=== PATIENT | female | born 1960 | race Caucasian/White ===

== ENCOUNTER 2022-03-31 16:18 | Inpatient (IN) | payer MEDICARE, MEDICAID, SELFPAY ==
[2022-03-31] VITALS (18 sets, daily range): BP systolic 95–139; BP diastolic 71–93; PULSE 97–123; RESP 18–34; TEMP 36.6–36.8; O2SAT 87–100; BMI 44.7
--- NOTE | 2022-03-31 16:22 | ED_ITS ---
HPI - SOB/Dyspnea General: Chief Complaint: Shortness of Breath/Dyspnea Stated Complaint: SOB Time Seen by Provider: 03/31/22 16:22 History of Present Illness: HPI Narrative: Ms. Lancaster is a 61-year-old lady with history of atrial fibrillation and apparent history of heart failure presenting to the emergency department due to shortness of breath and respiratory symptoms. Patient reports a few week history of progressively worsening symptoms. She was previously seen at outside ER and diagnosed with heart failure started on Lasix and initially had mild i mprovement however symptoms have worsened over the past few days. Endorses worse shortness of breath on exertion and inability to lay flat due to shortness of breath. Nonproductive cough and generalized malaise. Patient did have improvement with nitroglycerin, albuterol, and CPAP by EMS however is currently off CPAP and has obvious dyspnea with talking. Onset (ago): week(s) Timing: progressively worsening Severity: severe Exacerbating factors: lying flat, exertion and talking Relieving factors: nothing Known history of: congestive heart failure Review of Systems General: Reports: 10 or more systems reviewed and unremarkable except in HPI and below PFSH ED PFSH: Medical History Atrial fibrillation Pulmonary HTN Surgical History Personal history of spine surgery Family History Denies family history of CAD (coronary artery disease) Social History Smoking and tobacco status: former smoker Physical Exam Const: COMMON NORMALS: alert GENERAL APPEARANCE: cooperative, well developed and ill appearing (Somewhat) HENMT: COMMON NORMALS: normocephalic and atraumatic HEAD & SCALP: normocephalic and atraumatic Eye: COMMON NORMALS: conjunctivae normal CONJUNCTIVA: Yes conjunctivae normal SCLERA: sclerae normal Neck/C-Spine: COMMON NORMALS: supple GENERAL: Yes trachea midline Resp: EFFORT & INSPECTION: Yes tachypneic and Yes labored AUSCULTATION: diminished lung sounds Cardio: RATE: tachycardic RHYTHM: abnormal rhythm irregularly irregular GI: COMMON NORMALS: Soft to palpation PALPATION: Yes Soft to palpation and No Tenderness to palpation present (GI) PERCUSSION: normal to percussion Extremity: GENERAL: Yes normal exam except as noted and Yes edema (3+ bilateral pitting) Neuro: COMMON NORMALS: moves all extremities SENSORIUM/ORIENTATION: Yes alert and No Orientation impaired Psych: COMMON NORMALS: mental status grossly normal and Normal thought process present THOUGHT PROCESS: Normal thought process present Course Vital Signs: Vital signs: Vital Signs Temperature 97.9 F 04/09/22 03:41 Pulse Rate 97 04/09/22 03:41 Respiratory Rate 22 H 04/09/22 03:41 Blood Pressure 99/71 04/09/22 03:41 Pulse Oximetry 95 04/09/22 03:41 Oxygen Delivery Me thod 04/09/22 03:41 Oxygen Flow Rate 3.5 04/09/22 03:41 Fraction of Inspir ed Oxygen 30 04/08/22 22:55 MDM - SOB/Dyspnea Medical Decision Making 61-year-old lady presenting with progressively worsening heart failure symptoms despite outpatient treatment. Patient has been incompletely evaluated for diagnosis at this time. Exam as above. Patient has marked dyspnea on exam after short exertion and is found to be in atrial fibrillation. EKG notable for atrial fibrillation with borderline ventricular response, no STEMI, axis is abnormal. Labs notable for no leukocytosis, normal hemoglobin and platelet count. Metabolic panel without significant electrolyte arrangement to explain symptoms, creatinine is mildly elevated. Negative range 2-hour delta troponin. BNP elevated. Negative viral studies. Chest x-ray with increased pulm vascular congestion, no lobar consolidation or pneumothorax. Patient treated with analgesia in the emergency department. Heart rate remains in the high 90s to 110s range and blood pressure is adequate. Given incompletely evaluated cardiac function which is said to be significantly reduced of somewhat unclear etiology I will allow for mild increase in heart rate at this time as the patient may be dependent on of her cardiac output. Given severity and progressive nature of symptoms despite outpatient therapy I believe that the patient requires inpatient evaluation. Most likely etiology of patient symptoms is heart failure with atrial fibrillation. The results of ED evaluation were discussed with the patient including plan for admission due to requirement for level of care not available if discharged to prevent significant worsening/deterioration. Patient agreeable with plan. Discussed with hospitalist service who was agreeable to admit patient. Medical Records I reviewed the patient's medical records. Lab Data I reviewed the patient's lab results. 04/08/22 04:18 04/08/22 04:18 Labs/Radiology: Radiology Impressions Chest X-Ray 04/06/22 21:17 IMPRESSION: Negative for focal acute pulmonary disease. Possible mild interstitial edema. Laboratory Results WBC 8.2 10^3/uL (4.0-10.0) 03/31/22 16:30 RBC 4.83 10^6/uL (4.1-5.3) 03/31/22 16:30 Hgb 13.8 g/dL (11.5-15.3) 03/31/22 16:30 Hct 44.8 % (37.0-47.0) 03/31/22 16:30 MCV 92.8 fl (81-99) 03/31/22 16:30 MCH 28.6 pg (28.0-34.0) 03/31/22 16: MCHC 30.8 g/dL (30.0-36.0) 03/31/22 16:30 RDW 15.4 % (12.1-15.1) H 03/31/22 16:30 Plt Count 368 10^3/cmm (130-400) 03/31/22 16:30 MPV 10.2 fL (7.4-10.4) 03/31/22 16:30 Neut % (Auto) 77.4 % 03/31/22 16:30 Lymph % (Auto) 13.4 % 03/31/22 16:30 [place] % (Auto) 6.0 % 03/31/22 16:30 Eos % (Auto) 1.7 % 03/31/22 16:30 Baso % (Auto) 0.9 % 03/31/22 16:30 Neut # (Auto) 6.34 10^3/uL (1.8-7.7) 03/31/22 16:30 Lymph # (Auto) 1.1 10^3/uL (0.8-4.8) 03/31/22 16:30 [place] # (Auto) 0.5 10^3/uL (0.2-0.9) 03/31/22 16:30 Eos # (Auto) 0.1 10^3/uL (0.0-0.8) 03/31/22 16:30 Baso # (Auto) 0.1 10^3/uL (0.0-0.1) 03/31/22 16:30 Nucleated RBC % (auto) 0 % 03/31/22 16:30 Nucleated RBCs # 0.0 /100WBC 03/31/22 16:30 D-Dimer 1.19 ug/mIFEU (0-0.59) H 03/31/22 16:30 Specimen Type Arterial 03/31/22 16:39 Sample Site Radial, left 03/31/22 16:39 ABG pH 7.44 (7.35-7.45) 03/31/22 16:39 ABG pCO2 35.3 mmHg (35-45) 03/31/22 16:39 ABG pO2 63.3 mmHg (80.0-100.0) L 03/31/22 16:39 ABG HCO3 24.1 mmol/L (22-26) 03/31/22 16:39 ABG O2 Saturation 92.4 03/31/22 16:39 ABG Base Excess 0.3 mmol/L (-2.0-2.0) 03/31/22 16:39 Luis Test Pos 03/31/22 16:39 A-a O2 Gradient 5.7 mmHg (5-10) 03/31/22 16:39 Hematocrit 41.6 % (37-47) 03/31/22 16:39 Hgb O2 Saturation 91.0 % (95-100) L 03/31/22 16:39 Carboxyhemoglobin 1.3 %THgb (0.4-20.1) 03/31/22 16:39 Methemoglobin 0.1 % (0.4-1.5) L 03/31/22 16:39 Total Hemoglobin 13.6 g/dL (12-16) 03/31/22 16:39 Sodium 143.0 mmol/L (131-143) 03/31/22 16:39 Potassium 3.7 mmol/L (3.5-5.0) 03/31/22 16:39 Glucose 115.0 mg/dL (70-115) 03/31/22 16:39 Ionized Calcium 1.2 mmol/L (1.1-1.4) 03/31/22 16:39 O2 Delivery Device Room air 03/31/22 16:39 FiO2 21.0 % 03/31/22 16:39 Casing Machine Operator ID Cak 03/31/22 16:39 Sodium 141 mmol/L (136-145) 03/31/22 16:30 Potassium 3.5 mmol/L (3.5-5.1) 03/31/22 16:30 Chloride 104 mmol/L (98-107) 03/31/22 16:30 Carbon Dioxide 24 mmol/L (22-29) 03/31/22 16:30 Anion Gap 16.5 (5-19) 03/31/22 16:30 BUN 29 mg/dL (8-23) H 03/31/22 16:30 Creatinine 1.1 mg/dL (0.5-0.9) H 03/31/22 16:30 GFR Calculation 50.2 mL/min (90-130) L 03/31/22 16:30 Glucose 107 mg/dL (65-115) 03/31/22 16:30 Calculated Osmolality 298 mOsm/kg (285-295) H 03/31/22 16:30 Calcium 9.0 mg/dL (8.5-10.5) 03/31/22 16:30 Total Bilirubin 0.9 mg/dL (0.15-1.2) 03/31/22 16:30 AST 11 U/L (0-32) 03/31/22 16:30 ALT 18 U/L (0-33) 03/31/22 16:30 Alkaline Phosphatase 116 U/L (35-105) H 03/31/22 16:30 Troponin T Baseline 30 ng/L (0-10) H 03/31/22 16:30 C-Reactive Protein 33.0 mg/L (0.0-4.9) H 03/31/22 16:30 NT-Pro-B Natriuret Pep 7606 pg/mL (0-125) H 03/31/22 16:30 Total Protein 6.8 g/dL (6.6-8.7) 03/31/22 16:30 Albumin 3.7 g/dL (3.5-5.2) 03/31/22 16:30 Globulin 3.1 g/dL (1.3-4.6) 03/31/22 16:30 Vitamin B12 866 pg/mL (232-1245) 03/31/22 16:30 Procalcitonin 0.10 ng/mL (0-0.5) 03/31/22 16:30 Procalcitonin 0.11 ng/mL (0-0.5) 03/31/22 16:30 TSH 1.91 uIU/mL (0.27-4.20) 03/31/22 16:30 Coronavirus 229E (PCR) Not detected (NOT DETECT) 03/31/22 17:50 SARS-CoV-2 (PCR) Not detected (NOT DETECT) 03/31/22 17:50 Critical Care Time Critical Care Time: Critical Care Time: Yes Total Critical Care Time: 35 Attestation: Due to a high probability of clinically significant, possibly life threatening deterioration, the patient required my highest level of attention and preparedness to intervene emergently and I personally spent this critical care time directly and personally managing the patient. This critical care time included obtaining a history; examining the patient; pulse oximetry; ordering and review of laboratory and imaging studies; arranging urgent treatment with development of a management plan; evaluation of patient's response to treatment; frequent reassessment; and, discussions with other providers as applicable. It was exclusive of separately billable procedures. Primary system involved is cardiovascular Discharge Plan Discharge Patient Disposition: Admitted As Inpatient Admit Provider: Paul Tran Clinical Impression: Acute on chronic congestive heart failure, Atrial fibrillation with RVR, Hypoxemia Condition: Stable Coding Level of Care Code ED Director Of Hotel Operations for Varinderg Fwd Exam Comprehensive
--- NOTE | 2022-03-31 16:36 | XRR_ITS ---
PROCEDURE INFORMATION: Exam: XR Chest Exam date and time: 03/31/2022 4:49 PM Age: 61 years old Clinical indication: Shortness of breath; Additional info: SOB TECHNIQUE: Imaging protocol: Radiologic exam of the chest. Views: 1 view. COMPARISON: No relevant prior studies available. FINDINGS: Lungs: Mild interstitial pulmonary edema with superimposed alveolar edema versus atelectasis versus pneumonia in the right and left lower lobes. Pleural spaces: No pleural effusion. No pneumothorax. Heart/Mediastinum: Cardiac silhouette is markedly enlarged. Mediastinal contours are unremarkable. Vasculature: Vascular calcifications in the aorta. Bones/joints: Unremarkable for age. XR/XR chest 1V portable [id number] IMPRESSION: 1. Mild interstitial pulmonary edema with superimposed alveolar edema versus atelectasis versus pneumonia in the right and left lower lobes. Recommend clinical correlation. Recommend followup chest imaging to insure resolution of these findings. 2. Incidental/nonacute findings are listed in the report.
--- NOTE | 2022-03-31 16:37 | ECG_ITS ---
[facility] Test Date: 2022-03-31 Pat Name: Daina Lancaster Department: Room: Gender: Female Estate Conservator: : 1960 Requested By: Demarco Hsu Order Number: [id number] Kaleb MD: Kaci Toribio M.D. Measurements Intervals [place] Rate: 100 P: 0 TN: 0 QRS: 181 QRSD: 155 T: 78 QT: 403 QTc: 521 Interpretive Statements ATRIAL FIBRILLATION WITH RAPID VENTRICULAR RESPONSE INDETERMINATE AXIS INTRAVENTRICULAR CONDUCTION DELAY [130+ ms QRS DURATION] No previous ECG available for comparison Electronically Signed On 03-31-2022 20:07:10 DETENTION WORKER by Kaci Toribio M.D. [id number]
[2022-03-31 16:49] LABS: Basophils # 0.1 10^3/uL (0.0-0.1); Basophils % 0.9 %; Eosinophils # 0.1 10^3/uL (0.0-0.8); Eosinophils % 1.7 %; Hematocrit 44.8 % (37.0-47.0); Hemoglobin 13.8 g/dL (11.5-15.3); Lymphocytes # 1.1 10^3/uL (0.8-4.8); Lymphocytes % 13.4 %; Mean Corpuscular HGB Conc 30.8 g/dL (30.0-36.0); Mean Corpuscular Hemoglobin 28.6 pg (28.0-34.0); Mean Corpuscular Volume 92.8 fl (81-99); Mean Platelet Volume 10.2 fL (7.4-10.4); Monocytes # 0.5 10^3/uL (0.2-0.9); Neutrophils # 6.34 10^3/uL (1.8-7.7); Neutrophils % 77.4 %; Nucleated Red Blood Cells % 0 %; Platelet Count 368 10^3/cmm (130-400); Red Blood Count 4.83 10^6/uL (4.1-5.3); Red Cell Distribution Width 15.4 % (12.1-15.1); White Blood Count 8.2 10^3/uL (4.0-10.0)
[2022-03-31 16:50] LABS: ABG PCO2 35.3 mmHg (35-45); ABG PH Result 7.44 (7.35-7.45); Alveolar-Arterial Oxygen Gradi 5.7 mmHg (5-10); Arterial Blood Gas Hematocrit 41.6 % (37-47); Base Excess ABG 0.3 mmol/L (-2.0-2.0); Blood Gas Allen Test Pos; Blood Gas Operator Identificat CAK; Blood Gas Sample Site Radial, left; Blood Gas Sample Type Arterial; Carboxyhemoglobin 1.3 %THgb (0.4-20.1); HCO3 ABG 24.1 mmol/L (22-26); Ionized Calcium Level - ABG 1.2 mmol/L (1.1-1.4); Methemoglobin 0.1 % (0.4-1.5); Oxygen Device ROOM AIR; Oxygen Saturation ABG 92.4; PO2 ABG 63.3 mmHg (80.0-100.0); Potassium Level - ABG 3.7 mmol/L (3.5-5.0); Total Hemoglobin 13.6 g/dL (12-16)
[2022-03-31 17:07] LABS: Troponin(5th) Baseline 30 ng/L (0-10)
[2022-03-31 17:13] LABS: NT Pro B Type Natriuretic Pept 7606 pg/mL (0-125)
[2022-03-31 17:24] LABS: Alanine Aminotransferase 18 U/L (0-33); Albumin Level 3.7 g/dL (3.5-5.2); Alkaline Phosphatase 116 U/L (35-105); Anion Gap 16.5 (5-19); Aspartate Amino Transferase 11 U/L (0-32); Blood Urea Nitrogen 29 mg/dL (8-23); Carbon Dioxide 24 mmol/L (22-29); Chloride 104 mmol/L (98-107); Globulin 3.1 g/dL (1.3-4.6); Glomerular Filtration Rate 50.2 mL/min (90-130); Glucose 107 mg/dL (65-115); Osmolality Calculated 298 mOsm/kg (285-295); Potassium 3.5 mmol/L (3.5-5.1); Sodium 141 mmol/L (136-145); Total Bilirubin 0.9 mg/dL (0.15-1.2); Total Protein 6.8 g/dL (6.6-8.7)
--- NOTE | 2022-03-31 18:28 | P.HP_ITS ---
Providers/Chief Complaint Primary Care Provider: Mo Mike Chief Complaint: SOB History of Present Illness Daina Lancaster is a 61 year old female who presented to the hospital with chief complaint of worsening of shortness of breath with fluid overload and lower extremity edema. In the ER she has been diagnosed with A. fib RVR COPD exacerbation requiring BiPAP to decrease work of breathing. Patient is stating that since her spine surgery she has been noticing bloating and extremity edema. She was prescribed Lasix but she was never diagnosed with CHF in the past. She has not noticed any fever but endorsing chills and rm rgy and fatigue. She has not noticed any chest pain. Today she decided to come to the hospital because of worsening of leg swelling along with shortness of breath. She has been experiencing orthopnea and PND for last 2 to 3 days. In the ER she has only received morphine, BNP 7000, creatinine 1.1, chest x-ray showing signs of vascular congestion Review of Systems Const: Reports: body aches and fatigue; Denies: fever(s) Eyes: Denies: change in vision ENMT: Denies: throat pain Card: Reports: swelling of feet/ankles, dyspnea on exertion and orthopnea; Denies: chest pain Resp: Reports: dyspnea GI: Denies: abdominal pain or coffee ground emesis : Denies: dribbling Musc: Denies: neck pain Skin/Breast: Denies: rash Neuro: Denies: headache(s) Psych: Reports: anxiety Endo: Denies: polyuria Demetris/Lymph: Denies: easy bruising All/Imm: Denies: urticaria Medications/Allergies Home Medications Medication Instructions Recorded Confirmed Last Taken Type albuterol sulfate 90 mcg/actuation 2 puff inhalation Q6H PRN 03/31/22 03/31/22 Unknown History aerosol inhaler Shortness Of Breath apixaban 5 mg tablet (Eliquis) 5 mg PO BID 03/31/22 03/31/22 Unknown History carvedilol 3.125 mg tablet 3.125 mg PO BIDWM 03/31/22 03/31/22 Unknown History diltiazem HCl 180 mg capsule,24 180 mg PO BID 03/31/22 03/31/22 Unknown History hr,extended release furosemide 40 mg tablet 60 mg PO BID 03/31/22 03/31/22 Unknown History hydrocodone 10 mg-acetaminophen 1 tab PO BID PRN Pain 03/31/22 03/31/22 Unknown History 325 mg tablet losartan 25 mg tablet 25 mg PO DAILY 03/31/22 03/31/22 Unknown History naproxen 250 mg tablet 250 mg PO BID 03/31/22 03/31/22 Unknown History potassium chloride 20 mEq 20 meq PO DAILY 03/31/22 03/31/22 Unknown History tablet,extended release(part/cryst) spironolactone 25 mg tablet 25 mg PO DAILY 03/31/22 03/31/22 Unknown History Allergies Allergy/AdvReac Type Severity Reaction Status Date / Time amoxicillin [From Augmentin] Allergy ADR-Vomitin Verified 03/31/22 16:29 g clavulanic acid Allergy ADR-Vomitin Verified 03/31/22 16:29 [From Augmentin] g PFSH Acute PFSH: Medical History Atrial fibrillation Surgical History Personal history of spine surgery Family History (Updated 04/01/22 @ 13:43 by Paul Tran MD) Denies family history of CAD (coronary artery disease) Social History Smoking and tobacco status: former smoker Vitals/I&O/Wt Last Vital Signs Temp 98.2 F 03/31/22 16:19 Pulse 106 H 03/31/22 18:00 Resp 24 H 03/31/22 18:00 BP 96/71 03/31/22 17:30 Pulse Ox 100 03/31/22 18:00 O2 Del Method 03/31/22 16:46 FiO2 30 03/31/22 17:03 Weight last 48 hrs Weight 149.685 kg Physical Exam Narrative: Clinical signs of fluid overload Currently on BiPAP Saturating well Awake alert No active chest pain Clinical signs of fluid overload with 3+ edema of legs Abdomen soft, distended Awake and alert Known focal neuro exam Pleasant and cooperative Appears stated age No acute distress Data 03/31/22 16:30 03/31/22 16:30 A&P Assessment and plan (1) New onset of congestive heart failure: (2) Acute on chronic congestive heart failure: (3) Atrial fibrillation with RVR: (4) Hypoxemia: (5) Atrial fibrillation: Plan A. fib RVR Optimize AV morgan blocking agent Anticoagulate with Lovenox COPD exacerbation Currently on BiPAP to decrease work of breathing Diastolic CHF exacerbation causing worsening of shortness of breath Aggressive diuresis Clinical signs of fluid overload Check echo Full code Cardiac diet DVT prophylaxis on board Attestations Medical Necessity Statement*: Anticipating more than 2 midnights Time Spent in Patient Care: 40 Coding Level of Care Code Acute Tobacco Warehouse Agent for Andrew Everett Diagnoses New onset of congestive heart failure I50.9 Acute on chronic congestive heart failure I50.9 Atrial fibrillation with RVR I48.91 Hypoxemia R09.02 Atrial fibrillation I48.91
--- NOTE | 2022-03-31 18:39 | ECG_ITS ---
[facility] Test Date: 2022-03-31 Pat Name: Daina Lancaster Department: Room: Gender: Female Oceanographer Geological: : 1960 Requested By: Demarco Hsu Order Number: [id number] Kaleb MD: Kaci Toribio M.D. Measurements Intervals [place] Rate: 112 P: 0 FL: 0 QRS: 238 QRSD: 158 T: 67 QT: 380 QTc: 520 Interpretive Statements ATRIAL FIBRILLATION WITH RAPID VENTRICULAR RESPONSE RIGHT AXIS DEVIATION [QRS AXIS > 100] INTRAVENTRICULAR CONDUCTION DELAY [130+ ms QRS DURATION] Compared to ECG 03/31/2022 17:06:40 Right-axis deviation now present Indeterminate axis no longer present Electronically Signed On 03-31-2022 20:23:53 HYDRAULIC PLUMBER by Kaci Toribio M.D. [id number]
[2022-03-31] MEDS: morphine 4 mg/mL SDV 1 mL IVP (18:43)
[2022-03-31 19:26] LABS: Procalcitonin 0.11 ng/mL (0-0.5)
[2022-03-31 19:38] LABS: Adenovirus Not Detected (NOT DETECT); Chlamydia Pneumoniae Not Detected (NOT DETECT); Coronavirus 229E,HKU1,NL63,OC4 Not Detected (NOT DETECT); Human Metapneumovirus Not Detected (NOT DETECT); Human Rhinovirus/Enterovirus Not Detected (NOT DETECT); Influenza A Not Detected (NOT DETECT); Influenza A H1 Not Detected (NOT DETECT); Influenza A H1-2009 Not Detected (NOT DETECT); Influenza A H3 Not Detected (NOT DETECT); Influenza B Not Detected (NOT DETECT); Mycoplasma Pneumoniae Not Detected (NOT DETECT); Parainfluenza Virus Type 1 Not Detected (NOT DETECT); Parainfluenza Virus Type 2 Not Detected (NOT DETECT); Parainfluenza Virus Type 3 Not Detected (NOT DETECT); Parainfluenza Virus Type 4 Not Detected (NOT DETECT); Respiratory Syncytial Virus A Not Detected (NOT DETECT); Respiratory Syncytial Virus B Not Detected (NOT DETECT); SARS-COV-2 Not Detected (NOT DETECT)
[2022-03-31 20:06] LABS: D Dimer 1.19 ug/mIFEU (0-0.59)
[2022-03-31 20:09] LABS: Troponin 5 2HR 27.68 ng/L (0-10)
[2022-03-31 20:16] LABS: Troponin 5 2HR Delta -2.32 ABS# (0-10)
[2022-03-31 20:45] LABS: Thyroid Stimulating Hormone 1.91 uIU/mL (0.27-4.20); Vitamin B12 866 pg/mL (232-1245)
[2022-03-31] MEDS: amiodarone 200 mg Tablet 400 MG PO (21:03)
[2022-03-31] MEDS: FUROsemide 10 mg/mL SDV 10mL 60 MG IVP (21:05)
[2022-03-31 22:48] LABS: Troponin 5 6HR 32.53 ng/L (0-10)
[2022-03-31 22:53] LABS: Troponin 5 6HR Delta 2.53 ng/L (0-12)
[2022-04-01] VITALS (166 sets, daily range): BP systolic 113–119; BP diastolic 60–99; PULSE 83–143; RESP 7–38; TEMP 36.2–37.1; O2SAT 85–100
[2022-04-01] MEDS: morphine IR 15 mg Tablet PO ×3 (02:53→20:24)
[2022-04-01 04:34] LABS: Anion Gap 15.8 (5-19); Blood Urea Nitrogen 30 mg/dL (8-23); C Reactive Protein 28.2 mg/L (0.0-4.9); Calcium 9.5 mg/dL (8.5-10.5); Carbon Dioxide 22 mmol/L (22-29); Chloride 105 mmol/L (98-107); Glomerular Filtration Rate 45.4 mL/min (90-130); Glucose 121 mg/dL (65-115); Magnesium 2.1 mg/dL (1.7-2.3); Osmolality Calculated 295 mOsm/kg (285-295); Phosphorus 4.1 mg/dL (2.5-4.5); Potassium 3.8 mmol/L (3.5-5.1); Sodium 139 mmol/L (136-145)
--- NOTE | 2022-04-01 04:47 | PC.NURSE ---
weight as of 04-01-22 at 0447 is 353.9lbs.
[2022-04-01 05:13] LABS: Basophils # 0.1 10^3/uL (0.0-0.1); Basophils % 1.4 %; Eosinophils # 0.1 10^3/uL (0.0-0.8); Eosinophils % 1.9 %; Hematocrit 43.2 % (37.0-47.0); Lymphocytes # 1.2 10^3/uL (0.8-4.8); Lymphocytes % 17.2 %; Mean Corpuscular HGB Conc 30.1 g/dL (30.0-36.0); Mean Corpuscular Hemoglobin 28.3 pg (28.0-34.0); Mean Corpuscular Volume 93.9 fl (81-99); Mean Platelet Volume 10.3 fL (7.4-10.4); Monocytes # 0.5 10^3/uL (0.2-0.9); Monocytes % 7.2 %; Neutrophils % 71.9 %; Nucleated Red Blood Cells % 0 %; Platelet Count 358 10^3/cmm (130-400); Red Cell Distribution Width 15.8 % (12.1-15.1)
--- NOTE | 2022-04-01 06:00 | USCV_ITS ---
Daina Lancaster Age: 61 Gender: F : 1960 Exam Date: 04/01/2022 15:21 Ordering Phys: Paul Tran MD Technologist: Alli Monet [place] [facility] [place]: chf BP: 119 / 60 HR: 40 Rhythm: Sinus Technical Quality: Adequate MEASUREMENTS (Male / Female) Normal Values 2D ECHO LV Diastolic Diameter PLAX 4.7 cm 4.2 - 5.9 / 3.9 - 5.3 cm LV Systolic Diameter PLAX 4.3 cm IVS Diastolic Thickness 1.1 cm 0.6 - 1.0 / 0.6 - 0.9 cm IVS Systolic Thickness 1.6 cm LVPW Diastolic Thickness 1.2 cm 0.6 - 1.0 / 0.6 - 0.9 cm LVPW Systolic Thickness 1.4 cm LVOT Diameter 2.1 cm LV Ejection Fraction 2D Teich 16.7 % LV Ejection Fraction MOD 2C 43.3 % LV Ejection Fraction 2C AL 43.1 % LA Diameter 4.6 cm Aorta at Sinotubular Diameter 2.8 cm IVC Diameter 2.5 cm M-MODE Aortic Annulus Diameter 2.7 cm LA Ao Ratio MM 1.8 MV E Point Septal Separation 1.9 cm DOPPLER AV Peak Velocity 154.0 cm/s LVOT Peak Velocity 52.0 cm/s AV Area Cont Eq vti 1.5 cm squared AV Area Cont Eq pk 1.1 cm squared MV E' Velocity 9.0 cm/s TR Peak Velocity 188.0 cm/s TR Peak Gradient 14.1 mmHg Right Atrial Pressure 3.0 mmHg Pulmonary Artery Systolic Pressu 17.1 mmHg FINDINGS Left Ventricle Left ventricle is normal in size. Grossly LV systolic function appears to be moderate to severely reduced. Accurate assessment of regional wall motion abnormalities is not possible because of poor ultrasonic windows. Right Ventricle Grossly appears to be hypokinetic Right Atrium Normal in size Left Atrium Normal in size Mitral Valve Grossly normal. Mild mitral regurgitation. Aortic Valve Not well visualized. No significant stenosis regurgitation seen. Tricuspid Valve Not well-visualized. Pulmonic Valve Not well-visualized. Pericardium Not well-visualized. Aorta Normal in size IVC CONCLUSIONS Technically limited quality echocardiogram because of poor ultrasonic windows. Grossly LV systolic function appears to be moderate to severely reduced. Accurate assessment of regional wall motion abnormalities is not possible because of poor ultrasonic windows. Grossly RV appears to be hypokinetic Mild mitral regurgitation No comparison studies are available Jeremy Tello MD (Electronically Signed) Final Date: 01 April 2022 18:48 S
--- NOTE | 2022-04-01 07:40 | USCV_ITS ---
Tonny Daina Age: 61 Gender: F : 1960 Exam Date: 04/01/2022 11:22 Ordering Phys: Paul Tran MD Technologist: CT Exam Location: [facility] – [place] Indication: sob PROCEDURES: Bilaterally, the common femoral, superficial femoral, profunda femoral, popliteal, posterior tibial, greater saphenous veins, and the peroneal trunk were identified and interrogated in the standard fashion. These veins were found to be easily compressible with spontaneous blood flow. No evidence of insufficiency or thrombus noted. In addition, the posterior tibial and peroneal trunk were evaluated. FINDINGS: normal venous, large pt CONCLUSIONS No evidence of right lower extremity DVT. No evidence of left lower extremity DVT. Henrique Jackson MD (Electronically Signed) Final Date: 01 April 2022 16:06 S
[2022-04-01] MEDS: FUROsemide 10 mg/mL SDV 10mL 60 MG IVP ×2 (08:29→20:12)
[2022-04-01] MEDS: apixaban 5 mg Tablet PO ×2 (08:29→17:42)
[2022-04-01] MEDS: dilTIAZem ER (24HR) 180 mg Capsule PO ×2 (08:29→17:42)
[2022-04-01] MEDS: carvedilol 3.125 mg Tablet PO (08:37)
--- NOTE | 2022-04-01 11:47 | PC.CHAP ---
Pastoral Care Encounter/Spiritual Assessment Type of Contact [] Declined application technician visit [] Patient/Family/Request visit [] Outpatient visit [] Follow-up visit [] Physician referral [] Code/Alert [x] Routine visit [] Staff referral [] Actively dying [] Patient sleeping [] Family support [] [] Out of room [] Palliative care [] [] Receiving care in room [] Pre-surgical visit [] Trauma [] Long length of stay [] ICU visit [] Other: Relational/Emotional Strength [x] Patient feels connected with others/family/visitors/staff [] Distress [] Loneliness/isolation [] Abandonment Spirituality of Patient [x] Person of Niru [] Attends Denominational of their Niru [x] Believes in Prayer [x] Reads Bible or Baptism materials [] There are Spiritual issues to be addressed [place] Lineman Interventions [x] Prayer [x] Active listening [x] Non-anxious presence [x] Spiritual/emotional support [] Crisis/trauma care [] Spiritual counseling [] Bereavement support [] Provided bereavement packet [] Provided Bible/devotional materials [] Provided toy/stuffed animal, coloring book to patient or family member [] Provided Communion [] Anointing/[place] [] Salvation [x] Completed spiritual assessment [] Other: Impact on Illness or Injury [] Angry [] Fearful [] Anxious [] Often cries [] Exhaustion [] Unable to work [] Unable to attend pentecostalism [] Unable to walk/stand [] Unable to read [] Unable to drive [] Unable to eat/drink [] Unable to sleep [] Unable to be with family [] Patient intubated [] Other: Summary Time spent with patient 10 min
--- NOTE | 2022-04-01 13:45 | PM.PN ---
Subjective Subjective: Patient is stating that she snores a lot Feels groggy in the morning Currently doing well on 3 L nasal cannula Heart rate improved with initiation of home medications however Coreg has been increased Discontinue amiodarone Shortness of breath improved with use of BiPAP Vitals/I&O/Wt Last Vital Signs Temp 97.2 F L 04/01/22 12:00 Pulse 100 04/01/22 13:10 Resp 29 H 04/01/22 13:10 BP 119/60 04/01/22 13:10 Pulse Ox 94 04/01/22 13:10 O2 Del Method 03/31/22 19:52 FiO2 35 04/01/22 07:49 03/31/22 04/01/22 04/01/22 22:59 06:59 14:59 Intake Total 960 / 960 1260 / 2220 590 / 590 Output Total 700 / 700 600 / 1300 425 / 425 Balance 260 / 260 660 / 920 165 / 165 Weight last 48 hrs Weight 149.685 kg Physical Exam Narrative: Clinical signs of fluid overload still present Currently on nasal cannula Abdomen soft Awake and alert Nonfocal neuro exam Variable S1-S2 EOMI, PERRLA Nonfocal neuro exam Pleasant and cooperative Data 04/01/22 03:53 04/01/22 03:53 Micro: Microbiology 03/31/22 18:50 Blood Culture - Preliminary Blood SPECIMEN COLLECTED 03/31/22 18:46 Blood Culture - Preliminary Blood SPECIMEN COLLECTED A&P Assessment and plan (1) New onset of congestive heart failure: (2) Acute on chronic congestive heart failure: (3) Atrial fibrillation with RVR: (4) Hypoxemia: (5) Atrial fibrillation: Plan New onset CHF Continue IV Lasix Fluid restriction 1200 mL Follow-up with echo EF is unknown Likely etiology is undiagnosed deep apnea No active chest pain or signs of ACS A. fib RVR Increase the dose of Coreg to 12.5 mg twice a day Continue diltiazem home regimen Continue Eliquis Dyspnea on exertion related to CHF exacerbation Most likely she has undiagnosed sleep apnea endorsing headaches, grogginess in the morning and lack of energy, will give her outpatient sleep study referral To pulse ox telemetry overnight, ideally will do without oxygen Continue diuresis Still fluid overloaded Attestations Medical Necessity Statement*: Discharge once she is able to lay flat without any shortness of breath Time Spent in Patient Care: 30 Coding Level of Care Code Acute Development Administrator for Chg Fwd Diagnoses New onset of congestive heart failure I50.9 Acute on chronic congestive heart failure I50.9 Atrial fibrillation with RVR I48.91 Hypoxemia R09.02 Atrial fibrillation I48.91
[2022-04-01] MEDS: ipratropium-albuterol 3 mL Neb INHALATION ×2 (16:59→20:47)
[2022-04-01] MEDS: carvedilol 12.5 mg Tablet PO (17:42)
[2022-04-02] VITALS (19 sets, daily range): BP systolic 100–113; BP diastolic 74–95; PULSE 92–127; RESP 6–24; TEMP 35.8–36.8; O2SAT 92–98
[2022-04-02] MEDS: morphine IR 15 mg Tablet PO (02:30)
[2022-04-02 04:47] LABS: Blood Urea Nitrogen 35 mg/dL (8-23); Calcium 8.9 mg/dL (8.5-10.5); Carbon Dioxide 23 mmol/L (22-29); Chloride 104 mmol/L (98-107); Glomerular Filtration Rate 50.2 mL/min (90-130); Glucose 147 mg/dL (65-115); Osmolality Calculated 303 mOsm/kg (285-295); Sodium 141 mmol/L (136-145)
[2022-04-02] MEDS: ipratropium-albuterol 3 mL Neb INHALATION ×2 (08:09→20:15)
--- NOTE | 2022-04-02 08:27 | PM.CONSULT ---
Providers/Reason For Consult Consulting Physician/Specialty*: BROOKLYNN Toribio MD/cardiology Reason for Consult*: Patient with increasing shortness of breath/leg swelling/atrial fibrillation Requesting Physician: Dr. Tran Attending Physician: Paul Tran MD Primary Care Provider: Mo Mike History of Present Illness History of Present Illness Daina Lancaster is a 61 year old female, is admitted to hospital through the emergency room, where she presented with complaints of increasing shortness of breath and leg swelling. She was found to be in atrial fibrillation with rapid ventricular rate and also features of congestive heart failure. Her echocardiogram revealed a diminished LV ejection fraction. Cardiology consult is requested for further cardiac evaluation and recommendations. This patient is known to have chronic atrial fibrillation and is on oral anticoagulation. She also is known to have blood pressure. No history for diabetes or dyslipidemia. Has a questionable history of sleep apnea but never been treated. For the last few weeks, she been having increasing shortness of breath. The symptoms started acutely getting worse the last 3 to 4 days. She has no chest pain. No fever, chills or cough. No other associated symptoms. She has having some amount of orthopnea and PND. She had a low back surgery 20 years ago or so. Ever since, she been having bilateral leg numbness and some swelling. Her father had heart problems starting in his 50s. The details are not available. No other relevant family history. She used to smoke but quit 20 years ago. No alcohol abuse or any other substance abuse. Review of Systems Narrative: CONSTITUTIONAL: No fever or chills. Worsening shortness of breath as mentioned above EYES: No blurring of vision or other visual disturbances lately. ENT: No hoarseness of voice, auditory disturbances or sore throat. CARDIOVASCULAR: As mentioned above. RESPIRATORY: No significant cough. Questionable history of sleep apnea GASTROINTESTINAL: No hematemesis or melena. GENITOURINARY: No dysuria or hematuria. INTEGUMENTARY: No skin rashes or history of skin cancer. NEURO: No transient ischemic attacks or amaurosis. PSYCHIATRIC: No history of psychosis or major depression. HEMATOLOGIC: No bleeding disorders or significant anemia. ENDOCRINE: No history of polyuria or polydipsia. MUSCULOSKELETAL: No recent joint pain or swelling. ALLERGY/IMMUNOLOGY: As mentioned above. Medications/Allergies Home Medications Medication Instructions Recorded Confirmed Last Taken Type albuterol sulfate 90 mcg/actuation 2 puff inhalation Q6H PRN 03/31/22 03/31/22 Unknown History aerosol inhaler Shortness Of Breath apixaban 5 mg tablet (Eliquis) 5 mg PO BID 03/31/22 03/31/22 Unknown History carvedilol 3.125 mg tablet 3.125 mg PO BIDWM 03/31/22 03/31/22 Unknown History diltiazem HCl 180 mg capsule,24 180 mg PO BID 03/31/22 03/31/22 Unknown History hr,extended release furosemide 40 mg tablet 60 mg PO BID 03/31/22 03/31/22 Unknown History hydrocodone 10 mg-acetaminophen 1 tab PO BID PRN Pain 03/31/22 03/31/22 Unknown History 325 mg tablet losartan 25 mg tablet 25 mg PO DAILY 03/31/22 03/31/22 Unknown History naproxen 250 mg tablet 250 mg PO BID 03/31/22 03/31/22 Unknown History potassium chloride 20 mEq 20 meq PO DAILY 03/31/22 03/31/22 Unknown History tablet,extended release(part/cryst) spironolactone 25 mg tablet 25 mg PO DAILY 03/31/22 03/31/22 Unknown History Allergies Allergy/AdvReac Type Severity Reaction Status Date / Time amoxicillin [From Augmentin] Allergy ADR-Vomitin Verified 03/31/22 16:29 g clavulanic acid Allergy ADR-Vomitin Verified 03/31/22 16:29 [From Augmentin] g Current Medications Generic Name Dose Route Start Last Admin Trade Name Freq PRN Reason Stop Dose Admin Albuterol/Ipratropium 3 ml 03/31/22 19:49 04/02/22 08:09 Ipratropium-Albuterol 3 Ml Neb INHALATION 3 ml Q6H PRN Administration SHORTNESS OF BREATH Apixaban 5 mg 04/01/22 09:00 04/01/22 17:42 Apixaban 5 Mg Tablet PO 5 mg BID GLORIA Administration Carvedilol 12.5 mg 04/01/22 18:00 04/01/22 17:42 Carvedilol 12.5 Mg Tablet PO 12.5 mg BID GLORIA Administration Morphine Sulfate 15 mg 03/31/22 19:49 04/02/22 02:30 Morphine Ir 15 Mg Tablet PO 15 mg Q6H PRN Administration pAIN PFSH Acute PFSH: Medical History (Updated 04/02/22 @ 09:50 by Kaci Toribio MD) Atrial fibrillation Surgical History (Updated 04/02/22 @ 09:48 by Kaci Toribio MD) Personal history of spine surgery Family History Denies family history of CAD (coronary artery disease) Social History Smoking and tobacco status: former smoker Vitals/I&O/Wt Last Vital Signs Temp 98.2 F 04/02/22 04:28 Pulse 114 H 04/02/22 08:15 Resp 22 H 04/02/22 08:15 BP 100/75 04/02/22 04:28 Pulse Ox 97 04/02/22 08:15 O2 Del Method 04/02/22 08:15 O2 Flow Rate 3 04/02/22 04:28 FiO2 30 04/02/22 08:15 04/01/22 04/02/22 04/02/22 22:59 06:59 14:59 Intake Total 238 / 828 240 / 1068 Output Total 325 / 750 650 / 1400 Balance -87 / 78 -410 / -332 Weight last 48 hrs Weight 330 lb Physical Exam Narrative: GENERAL: The patient is alert and oriented times three. Not in any acute distress. Morbidly obese. Mild respiratory distress HEENT: No significant pallor, icterus or lymphadenopathy.Oral cavity: There are no mucous membrane lesions. NECK: Trachea appears to be central. No masses noted. No JVD or thyromegaly appreciated. RESPIRATORY: Chest is symmetrical. No intercostals muscle retraction or any accessory muscle activation. There is no chest wall tenderness. Breath sounds are heard bilaterally. Scattered expiratory wheezes and few coarse crackles. Intensity of breath sounds are diminished in the bases. BREASTS: Deferred. HEART: The heart sounds are normal. No S3 or S4. No significant murmurs. No pericardial rub ABDOMEN: No vessel pulsations or distention. No tenderness. No organomegaly appreciated. Bowel sounds are normally heard. : Deferred. RECTAL: Deferred. LYMPHATIC: No lymphadenopathy noted in the neck. EXTREMITIES: Features of chronic venous stasis and stasis dermatitis. 1-2+ edema MUSCULOSKELETAL: No acute joint deformities or swelling SKIN: There are no significant rashes or ecchymosis NEUROPSYCHIATRIC: The patient is alert and oriented x3. Appears to be in a good mood. No tremors or rigidity noted. Data 04/01/22 03:53 04/02/22 03:08 Other Labs: Laboratory Last Values WBC 7.0 10^3/uL (4.0-10.0) 04/01/22 03:53 RBC 4.60 10^6/uL (4.1-5.3) 04/01/22 03:53 Hgb 13.0 g/dL (11.5-15.3) 04/01/22 03:53 Hct 43.2 % (37.0-47.0) 04/01/22 03:53 MCV 93.9 fl (81-99) 04/01/22 03:53 MCH 28.3 pg (28.0-34.0) 04/01/22 03:53 MCHC 30.1 g/dL (30.0-36.0) 04/01/22 03:53 RDW 15.8 % (12.1-15.1) H 04/01/22 03:53 Plt Count 358 10^3/cmm (130-400) 04/01/22 03:53 MPV 10.3 fL (7.4-10.4) 04/01/22 03:53 Neut % (Auto) 71.9 % 04/01/22 03:53 Lymph % (Auto) 17.2 % 04/01/22 03:53 [place] % (Auto) 7.2 % 04/01/22 03:53 Eos % (Auto) 1.9 % 04/01/22 03:53 Baso % (Auto) 1.4 % 04/01/22 03:53 Neut # (Auto) 5.00 10^3/uL (1.8-7.7) 04/01/22 03:53 Lymph # (Auto) 1.2 10^3/uL (0.8-4.8) 04/01/22 03:53 [place] # (Auto) 0.5 10^3/uL (0.2-0.9) 04/01/22 03:53 Eos # (Auto) 0.1 10^3/uL (0.0-0.8) 04/01/22 03:53 Baso # (Auto) 0.1 10^3/uL (0.0-0.1) 04/01/22 03:53 Nucleated RBC % (auto) 0 % 04/01/22 03:53 Nucleated RBCs # 0.0 /100WBC 04/01/22 03:53 D-Dimer 1.19 ug/mIFEU (0-0.59) H 03/31/22 16:30 Specimen Type Arterial 03/31/22 16:39 Sample Site Radial, left 03/31/22 16:39 ABG pH 7.44 (7.35-7.45) 03/31/22 16:39 ABG pCO2 35.3 mmHg (35-45) 03/31/22 16:39 ABG pO2 63.3 mmHg (80.0-100.0) L 03/31/22 16:39 ABG HCO3 24.1 mmol/L (22-26) 03/31/22 16:39 ABG O2 Saturation 92.4 03/31/22 16:39 ABG Base Excess 0.3 mmol/L (-2.0-2.0) 03/31/22 16:39 Luis Test Pos 03/31/22 16:39 A-a O2 Gradient 5.7 mmHg (5-10) 03/31/22 16:39 Hematocrit 41.6 % (37-47) 03/31/22 16:39 Hgb O2 Saturation 91.0 % (95-100) L 03/31/22 16:39 Carboxyhemoglobin 1.3 %THgb (0.4-20.1) 03/31/22 16:39 Methemoglobin 0.1 % (0.4-1.5) L 03/31/22 16:39 Total Hemoglobin 13.6 g/dL (12-16) 03/31/22 16:39 Sodium 143.0 mmol/L (131-143) 03/31/22 16:39 Potassium 3.7 mmol/L (3.5-5.0) 03/31/22 16:39 Glucose 115.0 mg/dL (70-115) 03/31/22 16:39 Ionized Calcium 1.2 mmol/L (1.1-1.4) 03/31/22 16:39 O2 Delivery Device Room air 03/31/22 16:39 FiO2 21.0 % 03/31/22 16:39 Software Engineer [employer] ID Cak 03/31/22 16:39 Sodium 141 mmol/L (136-145) 04/02/22 03:08 Potassium 4.0 mmol/L (3.5-5.1) 04/02/22 03:08 Chloride 104 mmol/L (98-107) 04/02/22 03:08 Carbon Dioxide 23 mmol/L (22-29) 04/02/22 03:08 Anion Gap 18.0 (5-19) 04/02/22 03:08 BUN 35 mg/dL (8-23) H 04/02/22 03:08 Creatinine 1.1 mg/dL (0.5-0.9) H 04/02/22 03:08 GFR Calculation 50.2 mL/min (90-130) L 04/02/22 03:08 Glucose 147 mg/dL (65-115) H 04/02/22 03:08 Calculated Osmolality 303 mOsm/kg (285-295) H 04/02/22 03:08 Calcium 8.9 mg/dL (8.5-10.5) 04/02/22 03:08 Phosphorus 4.1 mg/dL (2.5-4.5) 04/01/22 03:53 Magnesium 2.1 mg/dL (1.7-2.3) 04/01/22 03:53 Total Bilirubin 0.9 mg/dL (0.15-1.2) 03/31/22 16:30 AST 11 U/L (0-32) 03/31/22 16:30 ALT 18 U/L (0-33) 03/31/22 16:30 Alkaline Phosphatase 116 U/L (35-105) H 03/31/22 16:30 Troponin T Baseline 30 ng/L (0-10) H 03/31/22 16:30 Troponin T 120 Minute 27.68 ng/L (0-10) H 03/31/22 19:45 Delta Troponin T -2.32 ABS# (0-10) L 03/31/22 19:45 Troponin T Hi Sens 6Hr 32.53 ng/L (0-10) H 03/31/22 22:15 Troponin T Hi Sens 6Hr Delta 2.53 ng/L (0-12) 03/31/22 22:15 C-Reactive Protein 28.2 mg/L (0.0-4.9) H 04/01/22 03:53 NT-Pro-B Natriuret Pep 7606 pg/mL (0-125) H 03/31/22 16:30 Total Protein 6.8 g/dL (6.6-8.7) 03/31/22 16:30 Albumin 3.7 g/dL (3.5-5.2) 03/31/22 16:30 Globulin 3.1 g/dL (1.3-4.6) 03/31/22 16:30 Vitamin B12 866 pg/mL (232-1245) 03/31/22 16:30 Procalcitonin 0.10 ng/mL (0-0.5) 03/31/22 16:30 Procalcitonin 0.11 ng/mL (0-0.5) 03/31/22 16:30 TSH 1.91 uIU/mL (0.27-4.20) 03/31/22 16:30 Coronavirus 229E (PCR) Not detected (NOT DETECT) 03/31/22 17:50 SARS-CoV-2 (PCR) Not detected (NOT DETECT) 03/31/22 17:50 Micro: Microbiology 03/31/22 18:50 Blood Culture - Preliminary Blood NEGATIVE TO DATE 03/31/22 18:46 Blood Culture - Preliminary Blood NEGATIVE TO DATE Echo: My impression: Technically limited quality echocardiogram because of poor ?ultrasonic windows. ?Grossly LV systolic function appears to be moderate to severely ?reduced.? Accurate assessment of regional wall motion ?abnormalities is not possible because of poor ultrasonic ?windows. ?Grossly RV appears to be hypokinetic ?Mild mitral regurgitation ?No comparison studies are available CXR: Radiologist's impression: 04/01/2022 1. Mild interstitial pulmonary edema with superimposed alveolar edema versus atelectasis versus pneumonia in the right and left lower lobes. Recommend clinical correlation. Recommend followup chest imaging to insure resolution of these findings. 2. Incidental/nonacute findings are listed in the report. EKG 1: My Interpretation: Atrial fibrillation with rapid ventricular rate of 112 bpm. Right axis deviation. Intraventricular conduction delay. A&P Assessment and plan (1) New onset of congestive heart failure: Patient seems to have LV systolic dysfunction. Had atrial fibrillation, morbid obesity, possible reactive airway disease, etc. are are contributing factors. She will be carefully treated with IV diuretics. (2) Atrial fibrillation with RVR: In view of her LV dysfunction, I may start her on beta-kajal namely Lopressor 50 mg p.o. twice daily. We will discontinue carvedilol because of the reactive airway disease. We will discontinue the Cardizem because LV systolic dysfunction. Her heart rate will be closely monitored on telemetry. (3) Hypoxemia: Multifactorial. Seems to be improving. (4) Cardiomyopathy: Etiology is not clear. We may go ahead and do a contrast echocardiogram to better evaluate the LV function. Also consider a Myocardial perfusion imaging after treating the heart failure appropriately to evaluate for any underlying coronary ischemia Plan Other problems are Stage II kidney disease Morbid obesity History of degenerative joint disease Chronic back pain ? Peripheral neuropathy I may increase the dose of the Lasix to 60 mg every 8 hours with potassium 20 mg p.o. every 8 hours. Discontinue the Coreg and started on metoprolol 50 mg p.o. twice daily. Closely monitor telemetry. Echo with a contrast Based on the clinical progress and results of the above tests, further recommendations will be made. Thank for the opportunity to eval this patient and make these recommendations Coding Level of Care Code Acute Fruit Cutter for Andrew Everett History Detailed Exam Detailed Medical Decision Making High Complexity Diagnoses New onset of congestive heart failure I50.9 Atrial fibrillation with RVR I48.91 Hypoxemia R09.02 Cardiomyopathy I42.9
[2022-04-02] MEDS: amiodarone 200 mg Tablet 400 MG PO ×2 (09:00→17:30)
[2022-04-02] MEDS: apixaban 5 mg Tablet PO (09:00)
--- NOTE | 2022-04-02 10:02 | USCV_ITS ---
Daina Lancaster Age: 61 Gender: F : 1960 Exam Date: 04/02/2022 10:57 Ordering Phys: Kaci Toribio MD ([email or web address]) Technologist: Alli Monet Exam Location: [facility] [place] Indication: contrast views BP: 112 / 90 HR: Rhythm: Sinus Technical Quality: Adequate MEASUREMENTS (Male / Female) Normal Values 2D ECHO LV Ejection Fraction MOD 2C 53.8 % LV Ejection Fraction 2C AL 54.6 % FINDINGS Left Ventricle Severe diffuse hypokinesia left ventricle. Moderately dilated LV cavity. LV ejection fraction around 20 to 25%(visual) Right Ventricle Right Atrium Left Atrium Mitral Valve Aortic Valve Tricuspid Valve Pulmonic Valve Pericardium Aorta IVC CONCLUSIONS 1. Severe diffuse hypokinesia left ventricle 2. LV ejection fraction appears to be around 20 to 25%. 3. Moderately dilated LV cavity Contrast echocardiogram was performed with the [employer] . Dr Kaci Toribio MD FACC (Electronically Signed) Final Date: 02 April 2022 18:53 S
--- NOTE | 2022-04-02 10:24 | P.PN_ITS ---
Subjective Subjective: She has nocturnal hypoxia Most likely heart failure and cardiomyopathies related to untreated underlying medical conditions Requested Dr. Toribio for possible coronary angiogram however she is not ready because of active shortness of breath not immediately flat I will increase her diuretics Positive fluid balance Because of low EF on echo requested cardiology consult, discontinue Cardizem because of low EF changed to amiodarone Will give her digoxin loading dose today Vitals/I&O/Wt Last Vital Signs Temp 97.8 F 04/02/22 08:00 Pulse 114 H 04/02/22 08:15 Resp 22 H 04/02/22 08:15 BP 113/95 04/02/22 08:00 Pulse Ox 97 04/02/22 08:15 O2 Del Method 04/02/22 08:15 O2 Flow Rate 2 04/02/22 08:00 FiO2 30 04/02/22 08:15 04/01/22 04/02/22 04/02/22 22:59 06:59 14:59 Intake Total 238 / 828 240 / 1068 Output Total 325 / 750 650 / 1400 Balance -87 / 78 -410 / -332 Weight last 48 hrs Weight 149.685 kg Physical Exam Narrative: Patient clinically seems to be fluid overloaded Not able to lay flat Currently on BiPAP Able to answer my questions Variable S1-S2 A. fib RVR heart rate 114 Blood pressure 130s/95 mmHg EOMI, PERRLA Nonfocal neuro exam Rodriguez catheter draining dilute urine Data 04/01/22 03:53 04/02/22 03:08 Micro: Microbiology 03/31/22 18:50 Blood Culture - Preliminary Blood NEGATIVE TO DATE 03/31/22 18:46 Blood Culture - Preliminary Blood NEGATIVE TO DATE A&P Assessment and plan (1) Cardiomyopathy: (2) New onset of congestive heart failure: (3) Acute on chronic congestive heart failure: (4) Atrial fibrillation with RVR: (5) Hypoxemia: Plan Acute systolic CHF exacerbation Reduced EF Cardiology consulted She will need an angiogram to rule out ischemic cardiomyopathy Continue aggressive diuresis She is in positive fluid balance Currently on Lasix 60 mg IV every 8 hours along potassium supplement A. fib RVR Discontinue Cardizem because of low EF Continue metoprolol at amiodarone She might need digoxin if she stays in RVR Acute hypoxia related to CHF exacerbation Patient requires BiPAP on and off to decrease work of breathing She most likely has untreated sleep apnea nocturnal hypoxia is evident She will need sleep study at discharge Full code Cardiac diet She will need angiogram once she is more euvolemic Discontinue Eliquis and change to Lovenox in anticipation of angiogram Attestations Medical Necessity Statement*: Continue medical management Time Spent in Patient Care: 40 Coding Level of Care Code Acute Precinct Commanding Officer for Varinderg Fwd Diagnoses Cardiomyopathy I42.9 New onset of congestive heart failure I50.9 Acute on chronic congestive heart failure I50.9 Atrial fibrillation with RVR I48.91 Hypoxemia R09.02
[2022-04-02] MEDS: perflutren protein-a microsphr 0.22 mg/mL SDV 3 mL IV (11:12)
[2022-04-02] MEDS: FUROsemide 10 mg/mL SDV 10mL 60 MG IVP ×2 (11:58→17:22)
[2022-04-02] MEDS: HYDROcodone-acetaminophen 5-325 mg Tablet 1 TAB PO ×2 (14:15→19:58)
--- NOTE | 2022-04-02 16:58 | PC.NURSE ---
spoke with provider about request from patent for dental adhesive and cleaning tabs instructions to order PRN received
[2022-04-02] MEDS: potassium chloride ER 20 mEq Tablet PO ×2 (17:30→19:58)
--- NOTE | 2022-04-02 17:57 | PC.NURSE ---
Dr. Lau notified of HR going up to 150.
[2022-04-02] MEDS: enoxaparin 150 mg/mL Syringe SUBCUT (18:00)
[2022-04-02] MEDS: metoprolol tartrate 50 mg Tablet PO (19:58)
[2022-04-03] VITALS (10 sets, daily range): BP systolic 92–135; BP diastolic 62–81; PULSE 85–102; RESP 12–29; TEMP 36.4–36.6; O2SAT 86–97
[2022-04-03] MEDS: FUROsemide 10 mg/mL SDV 10mL 60 MG IVP ×3 (00:58→16:11)
[2022-04-03] MEDS: HYDROcodone-acetaminophen 5-325 mg Tablet 1 TAB PO ×4 (01:04→23:05)
[2022-04-03] MEDS: hyDROXYzine 25 mg Capsule PO ×2 (01:19→21:04)
[2022-04-03 04:03] LABS: Basophils # 0.1 10^3/uL (0.0-0.1); Eosinophils # 0.1 10^3/uL (0.0-0.8); Eosinophils % 1.8 %; Hematocrit 41.6 % (37.0-47.0); Hemoglobin 12.6 g/dL (11.5-15.3); Lymphocytes # 0.7 10^3/uL (0.8-4.8); Lymphocytes % 11.2 %; Mean Corpuscular HGB Conc 30.3 g/dL (30.0-36.0); Mean Corpuscular Hemoglobin 28.4 pg (28.0-34.0); Mean Corpuscular Volume 93.7 fl (81-99); Mean Platelet Volume 9.7 fL (7.4-10.4); Monocytes # 0.4 10^3/uL (0.2-0.9); Monocytes % 6.2 %; Neutrophils # 4.86 10^3/uL (1.8-7.7); Neutrophils % 79.1 %; Nucleated Red Blood Cells % 0 %; Platelet Count 354 10^3/cmm (130-400); Red Blood Count 4.44 10^6/uL (4.1-5.3); Red Cell Distribution Width 16.2 % (12.1-15.1); White Blood Count 6.1 10^3/uL (4.0-10.0)
[2022-04-03 04:23] LABS: Anion Gap 16.1 (5-19); Blood Urea Nitrogen 38 mg/dL (8-23); Calcium 8.3 mg/dL (8.5-10.5); Carbon Dioxide 22 mmol/L (22-29); Chloride 105 mmol/L (98-107); Glomerular Filtration Rate 50.2 mL/min (90-130); Glucose 125 mg/dL (65-115); Osmolality Calculated 299 mOsm/kg (285-295); Potassium 4.1 mmol/L (3.5-5.1); Sodium 139 mmol/L (136-145)
[2022-04-03] MEDS: enoxaparin 150 mg/mL Syringe SUBCUT ×2 (04:59→16:32)
[2022-04-03] MEDS: amiodarone 200 mg Tablet 400 MG PO ×2 (08:23→16:10)
[2022-04-03] MEDS: potassium chloride ER 20 mEq Tablet PO ×3 (08:24→16:11)
[2022-04-03] MEDS: ipratropium-albuterol 3 mL Neb INHALATION ×2 (08:59→14:19)
--- NOTE | 2022-04-03 10:35 | P.PN_ITS ---
Subjective Subjective: -1200 mL Complaining of shortness of breath however look pretty comfortable on 3 L No active chest pain, no active nausea She was complaining of back thermostat in her room Vitals/I&O/Wt Last Vital Signs Temp 97.9 F 04/02/22 20:04 Pulse 93 04/03/22 08:10 Resp 23 H 04/03/22 08:10 BP 113/81 04/03/22 08:10 Pulse Ox 91 04/03/22 08:10 O2 Del Method 04/03/22 08:10 O2 Flow Rate 3 04/03/22 08:10 FiO2 30 04/03/22 07:46 04/02/22 04/03/22 04/03/22 22:59 06:59 14:59 Intake Total 480 / 480 240 / 720 Output Total 1200 / 1200 750 / 1950 Balance -720 / -720 -510 / -1230 Physical Exam Narrative: Clinical signs of fluid overload abdomen soft Currently on 3 L Bilateral breath sounds mild rhonchi and crackles S1, S2 variable Awake and alert On 3 L Lower extremity edema slightly improved skin wrinkling noted A. fib without RVR Data 04/03/22 03:36 04/03/22 03:36 A&P Assessment and plan (1) Cardiomyopathy: (2) Previous back surgery: (3) New onset of congestive heart failure: (4) Acute on chronic congestive heart failure: (5) Atrial fibrillation with RVR: (6) Hypoxemia: Plan I would continue her use of BiPAP overnight No active chest pain Currently on 3 L of oxygen IV Lasix every 8 hours with potassium supplement to be continued Hopefully we can schedule for a stress test for tomorrow to rule out coronary ischemia We will follow-up with cardiology A. fib without RVR heart rate is in the 80-90 range, currently on metoprolol and amiodarone Full code Cardiac diet N.p.o. after midnight Dr. Toribio wanted another echo with contrast to better evaluate LVEF Attestations Medical Necessity Statement*: Continue medical management Time Spent in Patient Care: 30 Coding Level of Care Code Acute Supervisor Sound Technician for Chg Fwd Diagnoses Cardiomyopathy I42.9 Previous back surgery Z98.890 New onset of congestive heart failure I50.9 Acute on chronic congestive heart failure I50.9 Atrial fibrillation with RVR I48.91 Hypoxemia R09.02
[2022-04-03] MEDS: metoprolol tartrate 50 mg Tablet PO ×2 (10:56→21:04)
[2022-04-03] MEDS: sennosides-docusate Tablet 1 TAB PO (13:11)
--- NOTE | 2022-04-03 18:02 | PM.PN ---
Subjective Subjective: Patient is complaining of increasing shortness of breath this morning. She has been noncompliant with the BiPAP. No chest pain. No fever or chills. Medications: Medication Review Details: Current Medications Acetaminophen (Acetaminophen 500 Mg Tablet) 500 mg PO Q4H PRN PRN Reason: fever Hydrocodone Bitart/Acetaminophen (Hydrocodone-Acetaminophen 5-325 Mg Tablet) 1 tab PO Q4H PRN PRN Reason: MODERATE PAIN Last Admin: 04/03/22 13:09 Dose: 1 tab Albuterol/Ipratropium (Ipratropium-Albuterol 3 Ml Neb) 3 ml INHALATION Q6H PRN PRN Reason: SHORTNESS OF BREATH Last Admin: 04/03/22 14:19 Dose: 3 ml Amiodarone HCl (Amiodarone 200 Mg Tablet) 400 mg PO BID [facility] Last Admin: 04/03/22 16:10 Dose: 400 mg Denture Adhesive (Fixodent 39 Gm Tube) 1 applic DENTAL PRN PRN PRN Reason: denture adhesive Denture Adhesive (Efferdent Effervescent) 1 each DENTAL PRN PRN PRN Reason: dental addhesion Enoxaparin Sodium (Enoxaparin 150 Mg/Ml Syringe) 150 mg SUBCUT Q12H [facility] Last Admin: 04/03/22 16:32 Dose: 150 mg Furosemide (Furosemide 10 Mg/Ml Sdv 10ml) 60 mg IVP Q8H [facility] Last Admin: 04/03/22 16:11 Dose: 60 mg Metoprolol Tartrate (Metoprolol Tartrate 50 Mg Tablet) 50 mg PO BID@0900,2100 [facility] Last Admin: 04/03/22 10:56 Dose: 50 mg Ondansetron HCl (Ondansetron 2 Mg/Ml Sdv 2 Ml) 4 mg IVP Q6H PRN PRN Reason: NAUSEA AND VOMITING Potassium Chloride (Potassium Chloride Er 20 Meq Tablet) 20 meq PO TID [facility] Last Admin: 04/03/22 16:11 Dose: 20 meq Senna/Docusate Sodium (Sennosides-Docusate Tablet) 1 tab PO DAILY [facility] Last Admin: 04/03/22 13:11 Dose: 1 tab Vitals/I&O/Wt Last Vital Signs Temp 97.6 F 04/03/22 15:35 Pulse 101 H 04/03/22 15:35 Resp 28 H 04/03/22 15:35 BP 135/62 04/03/22 15:35 Pulse Ox 90 04/03/22 15:35 O2 Del Method 04/03/22 15:35 O2 Flow Rate 3 04/03/22 15:35 FiO2 30 04/03/22 12:00 04/03/22 04/03/22 04/03/22 06:59 14:59 22:59 Intake Total 240 / 720 240 / 240 480 / 720 Output Total 750 / 1950 1925 / 1925 Balance -510 / -1230 240 / 240 -1445 / -1205 Physical Exam Narrative: GENERAL: The patient is somewhat drowsy. Not in any acute distress. Morbidly obese. Mild respiratory distress HEENT: No significant pallor, icterus or lymphadenopathy.Oral cavity: There are no mucous membrane lesions. NECK: Trachea appears to be central. No masses noted. No JVD or thyromegaly appreciated. RESPIRATORY: Chest is symmetrical. No intercostals muscle retraction or any accessory muscle activation. There is no chest wall tenderness. Breath sounds are heard bilaterally. Diffuse expiratory wheeze and coarse crackles bilaterally BREASTS: Deferred. HEART: The heart sounds are normal. No S3 or S4. No significant murmurs. No pericardial rub ABDOMEN: No vessel pulsations or distention. No tenderness. No organomegaly appreciated. Bowel sounds are normally heard. : Deferred. RECTAL: Deferred. LYMPHATIC: No lymphadenopathy noted in the neck. EXTREMITIES: Features of chronic venous stasis and stasis dermatitis. 1-2+ edema MUSCULOSKELETAL: No acute joint deformities or swelling SKIN: There are no significant rashes or ecchymosis NEUROPSYCHIATRIC: No focal motor deficits. Data 04/03/22 03:36 04/03/22 03:36 Micro: Laboratory Last Values WBC 6.1 10^3/uL (4.0-10.0) 04/03/22 03:36 RBC 4.44 10^6/uL (4.1-5.3) 04/03/22 03:36 Hgb 12.6 g/dL (11.5-15.3) 04/03/22 03:36 Hct 41.6 % (37.0-47.0) 04/03/22 03:36 MCV 93.7 fl (81-99) 04/03/22 03:36 MCH 28.4 pg (28.0-34.0) 04/03/22 03:36 MCHC 30.3 g/dL (30.0-36.0) 04/03/22 03:36 RDW 16.2 % (12.1-15.1) H 04/03/22 03:36 Plt Count 354 10^3/cmm (130-400) 04/03/22 03:36 MPV 9.7 fL (7.4-10.4) 04/03/22 03:36 Neut % (Auto) 79.1 % 04/03/22 03:36 Lymph % (Auto) 11.2 % 04/03/22 03:36 Cavalier % (Auto) 6.2 % 04/03/22 03:36 Eos % (Auto) 1.8 % 04/03/22 03:36 Baso % (Auto) 1.0 % 04/03/22 03:36 Neut # (Auto) 4.86 10^3/uL (1.8-7.7) 04/03/22 03:36 Lymph # (Auto) 0.7 10^3/uL (0.8-4.8) L 04/03/22 03:36 [place]alier # (Auto) 0.4 10^3/uL (0.2-0.9) 04/03/22 03:36 Eos # (Auto) 0.1 10^3/uL (0.0-0.8) 04/03/22 03:36 Baso # (Auto) 0.1 10^3/uL (0.0-0.1) 04/03/22 03:36 Nucleated RBC % (auto) 0 % 04/03/22 03:36 Nucleated RBCs # 0.0 /100WBC 04/03/22 03:36 D-Dimer 1.19 ug/mIFEU (0-0.59) H 03/31/22 16:30 Specimen Type Arterial 03/31/22 16:39 Sample Site Radial, left 03/31/22 16:39 ABG pH 7.44 (7.35-7.45) 03/31/22 16:39 ABG pCO2 35.3 mmHg (35-45) 03/31/22 16:39 ABG pO2 63.3 mmHg (80.0-100.0) L 03/31/22 16:39 ABG HCO3 24.1 mmol/L (22-26) 03/31/22 16:39 ABG O2 Saturation 92.4 03/31/22 16:39 ABG Base Excess 0.3 mmol/L (-2.0-2.0) 03/31/22 16:39 Luis Test Pos 03/31/22 16:39 A-a O2 Gradient 5.7 mmHg (5-10) 03/31/22 16:39 Hematocrit 41.6 % (37-47) 03/31/22 16:39 Hgb O2 Saturation 91.0 % (95-100) L 03/31/22 16:39 Carboxyhemoglobin 1.3 %THgb (0.4-20.1) 03/31/22 16:39 Methemoglobin 0.1 % (0.4-1.5) L 03/31/22 16:39 Total Hemoglobin 13.6 g/dL (12-16) 03/31/22 16:39 Sodium 143.0 mmol/L (131-143) 03/31/22 16:39 Potassium 3.7 mmol/L (3.5-5.0) 03/31/22 16:39 Glucose 115.0 mg/dL (70-115) 03/31/22 16:39 Ionized Calcium 1.2 mmol/L (1.1-1.4) 03/31/22 16:39 O2 Delivery Device Room air 03/31/22 16:39 FiO2 21.0 % 03/31/22 16:39 Transformer Builder ID Cak 03/31/22 16:39 Sodium 139 mmol/L (136-145) 04/03/22 03:36 Potassium 4.1 mmol/L (3.5-5.1) 04/03/22 03:36 Chloride 105 mmol/L (98-107) 04/03/22 03:36 Carbon Dioxide 22 mmol/L (22-29) 04/03/22 03:36 Anion Gap 16.1 (5-19) 04/03/22 03:36 BUN 38 mg/dL (8-23) H 04/03/22 03:36 Creatinine 1.1 mg/dL (0.5-0.9) H 04/03/22 03:36 GFR Calculation 50.2 mL/min (90-130) L 04/03/22 03:36 Glucose 125 mg/dL (65-115) H 04/03/22 03:36 Calculated Osmolality 299 mOsm/kg (285-295) H 04/03/22 03:36 Calcium 8.3 mg/dL (8.5-10.5) L 04/03/22 03:36 Phosphorus 4.1 mg/dL (2.5-4.5) 04/01/22 03:53 Magnesium 2.1 mg/dL (1.7-2.3) 04/01/22 03:53 Total Bilirubin 0.9 mg/dL (0.15-1.2) 03/31/22 16:30 AST 11 U/L (0-32) 03/31/22 16:30 ALT 18 U/L (0-33) 03/31/22 16:30 Alkaline Phosphatase 116 U/L (35-105) H 03/31/22 16:30 Troponin T Baseline 30 ng/L (0-10) H 03/31/22 16:30 Troponin T 120 Minute 27.68 ng/L (0-10) H 03/31/22 19:45 Delta Troponin T -2.32 ABS# (0-10) L 03/31/22 19:45 Troponin T Hi Sens 6Hr 32.53 ng/L (0-10) H 03/31/22 22:15 Troponin T Hi Sens 6Hr Delta 2.53 ng/L (0-12) 03/31/22 22:15 C-Reactive Protein 28.2 mg/L (0.0-4.9) H 04/01/22 03:53 NT-Pro-B Natriuret Pep 7606 pg/mL (0-125) H 03/31/22 16:30 Total Protein 6.8 g/dL (6.6-8.7) 03/31/22 16:30 Albumin 3.7 g/dL (3.5-5.2) 03/31/22 16:30 Globulin 3.1 g/dL (1.3-4.6) 03/31/22 16:30 Vitamin B12 866 pg/mL (232-1245) 03/31/22 16:30 Procalcitonin 0.10 ng/mL (0-0.5) 03/31/22 16:30 Procalcitonin 0.11 ng/mL (0-0.5) 03/31/22 16:30 TSH 1.91 uIU/mL (0.27-4.20) 03/31/22 16:30 Coronavirus 229E (PCR) Not detected (NOT DETECT) 03/31/22 17:50 SARS-CoV-2 (PCR) Not detected (NOT DETECT) 03/31/22 17:50 A&P Assessment and plan (1) New onset of congestive heart failure: Patient seems to have severe LV systolic dysfunction. The LV ejection fraction was around 20 to 25% by echocardiogram. Atrial fibrillation with rapid ventricular rate, obstructive sleep apnea, reactive airway disease etc. are also contributing to heart failure (2) Atrial fibrillation with RVR: The patient seems to be tolerating the beta-kajal so far well. (3) Hypoxemia: Multifactorial. Seems to be improving. (4) Cardiomyopathy: Apparently her blood pressure was low and for that reason, losartan was held. We may go ahead and do started on spironolactone to see whether she can handle this. I may cut back on the Lasix to 40 mg p.o. twice daily Consider cardiac catheterization-left and right heart catheterization tomorrow. Plan Other problems are Stage II kidney disease Morbid obesity History of degenerative joint disease Chronic back pain ? Peripheral neuropathy Based on the results of the above and also patient clinical progress, further management decisions will be made. Attestations Medical Necessity Statement*: Patient requires continued hospital stay for close monitoring and further management Coding Level of Care Code Acute Starch Dumper for g Fwd Diagnoses New onset of congestive heart failure I50.9 Atrial fibrillation with RVR I48.91 Hypoxemia R09.02 Cardiomyopathy I42.9
[2022-04-04] VITALS (36 sets, daily range): BP systolic 56–142; BP diastolic 41–93; PULSE 83–107; RESP 6–44; TEMP 35.6–36.7; O2SAT 87–100
[2022-04-04] MEDS: FUROsemide 10 mg/mL SDV 10mL 60 MG IVP (01:11)
[2022-04-04] MEDS: enoxaparin 150 mg/mL Syringe SUBCUT (05:13)
--- NOTE | 2022-04-04 05:50 | P.PN_ITS ---
Subjective Subjective: When patient was taken off BiPAP she was put on 3 L nasal cannula She was saturating well Hemodynamic stable She endorsed feeling anxious, she was tachypneic she was given a dose of Ativan Patient was asking if she would be awake during the procedure, stated that she is freaking out thinking about the procedure Her medical power of collections attorney is her ex- N.p.o. Negative fluid balance Vitals/I&O/Wt Last Vital Signs Temp 97.5 F L 04/03/22 20:00 Pulse 93 04/04/22 04:00 Resp 12 04/04/22 04:00 BP 142/81 04/04/22 04:00 Pulse Ox 100 04/04/22 04:00 O2 Del Method 04/04/22 04:00 O2 Flow Rate 2 04/04/22 00:00 FiO2 30 04/04/22 00:00 04/03/22 04/03/22 04/04/22 14:59 22:59 06:59 Intake Total 240 / 240 600 / 840 120 / 960 Output Total 2425 / 2425 400 / 2825 Balance 240 / 240 -1825 / -1585 -280 / -1865 Physical Exam Narrative: Patient clinically is showing signs improvement of congestive heart failure Skin wrinkling noted Currently on 3 L cannula Anxious however lungs sound very clear Abdomen soft A. fib without RVR Nonfocal neuro exam Pleasant and cooperative Data 04/03/22 03:36 04/03/22 03:36 A&P Assessment and plan (1) Cardiomyopathy: (2) New onset of congestive heart failure: (3) Acute on chronic congestive heart failure: (4) Atrial fibrillation with RVR: Plan Patient may go for coronary angiogram today for new onset heart failure,'s systolic congestive heart failure exacerbation EF severely reduced She was kept n.p.o. overnight Cardiac stress test was canceled after I discussed her case with Dr. Toribio last night Negative fluid balance Cut back on diuretics from 3 times a day to twice a day, continue potassium supplementation A. fib without RVR, patient is doing well on current regimen of amiodarone and metoprolol She has nocturnal hypoxemia will need sleep study at the time of discharge Full code We will discussed her case with cardiology today Keep her n.p.o. until then Continue DVT prophylaxis For anxiety she was given a Xanax 1 dose today I would repeat her BMP because of potassium and creatinine Decrease Lasix to p.o. regimen Attestations Medical Necessity Statement*: Continue hospitalization Time Spent in Patient Care: 30 Coding Level of Care Code Acute Distance Education Teacher for Andrew Fwd Diagnoses Cardiomyopathy I42.9 New onset of congestive heart failure I50.9 Acute on chronic congestive heart failure I50.9 Atrial fibrillation with RVR I48.91
[2022-04-04 07:21] LABS: Blood Urea Nitrogen 44 mg/dL (8-23); Calcium 8.6 mg/dL (8.5-10.5); Carbon Dioxide 24 mmol/L (22-29); Chloride 105 mmol/L (98-107); Glucose 124 mg/dL (65-115); Osmolality Calculated 309 mOsm/kg (285-295); Sodium 143 mmol/L (136-145)
[2022-04-04 07:22] LABS: Anion Gap 19.3 (5-19); Potassium 5.3 mmol/L (3.5-5.1)
[2022-04-04] MEDS: ALPRAZolam 0.5 mg Tablet 0.25 MG PO ×2 (07:34→15:09)
[2022-04-04] MEDS: lanolin oint 7 gm 1 APPLIC TOPICAL (07:36)
--- NOTE | 2022-04-04 08:50 | PM.PN ---
Subjective Subjective: Patient is feeling better. BUN/creatinine was going up. After IV hydration, it seems to be coming down. Medications: Medication Review Details: Current Medications Acetaminophen (Acetaminophen 500 Mg Tablet) 500 mg PO Q4H PRN PRN Reason: fever Last Admin: 04/04/22 12:28 Dose: 500 mg Hydrocodone Bitart/Acetaminophen (Hydrocodone-Acetaminophen 5-325 Mg Tablet) 1 tab PO Q4H PRN PRN Reason: MODERATE PAIN Last Admin: 04/03/22 23:05 Dose: 1 tab Albuterol/Ipratropium (Ipratropium-Albuterol 3 Ml Neb) 3 ml INHALATION Q6H PRN PRN Reason: SHORTNESS OF BREATH Last Admin: 04/04/22 13:28 Dose: 3 ml Amiodarone HCl (Amiodarone 200 Mg Tablet) 400 mg PO BID [facility] Last Admin: 04/04/22 09:33 Dose: 400 mg Denture Adhesive (Fixodent 39 Gm Tube) 1 applic DENTAL PRN PRN PRN Reason: denture adhesive Denture Adhesive (Efferdent Effervescent) 1 each DENTAL PRN PRN PRN Reason: dental addhesion Enoxaparin Sodium (Enoxaparin 150 Mg/Ml Syringe) 150 mg SUBCUT Q12H [facility] Last Admin: 04/04/22 05:13 Dose: 150 mg Furosemide (Furosemide 40 Mg Tablet) 40 mg PO DAILY@0800 [facility] Sodium Chloride (Sodium Chloride 0.9%) 1,000 mls @ 75 mls/hr IV .[id number] [facility] Last Admin: 04/04/22 09:32 Dose: 75 mls/hr Lanolin (Lanolin Oint 7 Gm) 1 applic TOPICAL PRN PRN PRN Reason: DRYNESS Last Admin: 04/04/22 07:36 Dose: 1 applic Metoprolol Tartrate (Metoprolol Tartrate 50 Mg Tablet) 50 mg PO BID@0900,2100 [facility] Last Admin: 04/04/22 09:33 Dose: 50 mg Ondansetron HCl (Ondansetron 2 Mg/Ml Sdv 2 Ml) 4 mg IVP Q6H PRN PRN Reason: NAUSEA AND VOMITING Potassium Chloride (Potassium Chloride Er 20 Meq Tablet) 20 meq PO DAILY [facility] Last Admin: 04/04/22 09:33 Dose: Not Given Senna/Docusate Sodium (Sennosides-Docusate Tablet) 1 tab PO DAILY [facility] Last Admin: 04/04/22 09:33 Dose: 1 tab Vitals/I&O/Wt Last Vital Signs Temp 97.5 F L 04/03/22 20:00 Pulse 91 04/04/22 08:38 Resp 14 04/04/22 08:38 BP 142/81 04/04/22 08:38 Pulse Ox 99 04/04/22 08:38 O2 Del Method 04/04/22 07:54 O2 Flow Rate 3 04/04/22 07:54 FiO2 30 04/04/22 00:00 04/03/22 04/04/22 04/04/22 22:59 06:59 14:59 Intake Total 600 / 840 120 / 960 360 / 360 Output Total 2425 / 2425 400 / 2825 Balance -1825 / -1585 -280 / -1865 360 / 360 Physical Exam Narrative: GENERAL: The patient is somewhat drowsy. Not in any acute distress. Morbidly obese. Mild respiratory distress HEENT: No significant pallor, icterus or lymphadenopathy.Oral cavity: There are no mucous membrane lesions. NECK: Trachea appears to be central. No masses noted. No JVD or thyromegaly appreciated. RESPIRATORY: Chest is symmetrical. No intercostals muscle retraction or any accessory muscle activation. There is no chest wall tenderness. Breath sounds are heard bilaterally. Diffuse expiratory wheeze and coarse crackles bilaterally BREASTS: Deferred. HEART: The heart sounds are normal. No S3 or S4. No significant murmurs. No pericardial rub ABDOMEN: No vessel pulsations or distention. No tenderness. No organomegaly appreciated. Bowel sounds are normally heard. : Deferred. RECTAL: Deferred. LYMPHATIC: No lymphadenopathy noted in the neck. EXTREMITIES: Features of chronic venous stasis and stasis dermatitis. 1-2+ edema MUSCULOSKELETAL: No acute joint deformities or swelling SKIN: There are no significant rashes or ecchymosis NEUROPSYCHIATRIC: No focal motor deficits. Data 04/03/22 03:36 04/04/22 06:26 Other Labs: Laboratory Last Values WBC 6.1 10^3/uL (4.0-10.0) 04/03/22 03:36 RBC 4.44 10^6/uL (4.1-5.3) 04/03/22 03:36 Hgb 12.6 g/dL (11.5-15.3) 04/03/22 03:36 Hct 41.6 % (37.0-47.0) 04/03/22 03:36 MCV 93.7 fl (81-99) 04/03/22 03:36 MCH 28.4 pg (28.0-34.0) 04/03/22 03:36 MCHC 30.3 g/dL (30.0-36.0) 04/03/22 03:36 RDW 16.2 % (12.1-15.1) H 04/03/22 03:36 Plt Count 354 10^3/cmm (130-400) 04/03/22 03:36 MPV 9.7 fL (7.4-10.4) 04/03/22 03:36 Neut % (Auto) 79.1 % 04/03/22 03:36 Lymph % (Auto) 11.2 % 04/03/22 03:36 [place] % (Auto) 6.2 % 04/03/22 03:36 Eos % (Auto) 1.8 % 04/03/22 03:36 Baso % (Auto) 1.0 % 04/03/22 03:36 Neut # (Auto) 4.86 10^3/uL (1.8-7.7) 04/03/22 03:36 Lymph # (Auto) 0.7 10^3/uL (0.8-4.8) L 04/03/22 03:36 [place]ock # (Auto) 0.4 10^3/uL (0.2-0.9) 04/03/22 03:36 Eos # (Auto) 0.1 10^3/uL (0.0-0.8) 04/03/22 03:36 Baso # (Auto) 0.1 10^3/uL (0.0-0.1) 04/03/22 03:36 Nucleated RBC % (auto) 0 % 04/03/22 03:36 Nucleated RBCs # 0.0 /100WBC 04/03/22 03:36 D-Dimer 1.19 ug/mIFEU (0-0.59) H 03/31/22 16:30 Specimen Type Arterial 03/31/22 16:39 Sample Site Radial, left 03/31/22 16:39 ABG pH 7.44 (7.35-7.45) 03/31/22 16:39 ABG pCO2 35.3 mmHg (35-45) 03/31/22 16:39 ABG pO2 63.3 mmHg (80.0-100.0) L 03/31/22 16:39 ABG HCO3 24.1 mmol/L (22-26) 03/31/22 16:39 ABG O2 Saturation 92.4 03/31/22 16:39 ABG Base Excess 0.3 mmol/L (-2.0-2.0) 03/31/22 16:39 Luis Test Pos 03/31/22 16:39 A-a O2 Gradient 5.7 mmHg (5-10) 03/31/22 16:39 Hematocrit 41.6 % (37-47) 03/31/22 16:39 Hgb O2 Saturation 91.0 % (95-100) L 03/31/22 16:39 Carboxyhemoglobin 1.3 %THgb (0.4-20.1) 03/31/22 16:39 Methemoglobin 0.1 % (0.4-1.5) L 03/31/22 16:39 Total Hemoglobin 13.6 g/dL (12-16) 03/31/22 16:39 Sodium 143.0 mmol/L (131-143) 03/31/22 16:39 Potassium 3.7 mmol/L (3.5-5.0) 03/31/22 16:39 Glucose 115.0 mg/dL (70-115) 03/31/22 16:39 Ionized Calcium 1.2 mmol/L (1.1-1.4) 03/31/22 16:39 O2 Delivery Device Room air 03/31/22 16:39 FiO2 21.0 % 03/31/22 16:39 Slurry Blender ID Cak 03/31/22 16:39 Sodium 143 mmol/L (136-145) 04/04/22 06:26 Potassium 5.3 mmol/L (3.5-5.1) H 04/04/22 06:26 Chloride 105 mmol/L (98-107) 04/04/22 06:26 Carbon Dioxide 24 mmol/L (22-29) 04/04/22 06:26 Anion Gap 19.3 (5-19) H 04/04/22 06:26 BUN 44 mg/dL (8-23) H 04/04/22 06:26 Creatinine 1.4 mg/dL (0.5-0.9) H 04/04/22 06:26 GFR Calculation 38.0 mL/min (90-130) L 04/04/22 06:26 Glucose 124 mg/dL (65-115) H 04/04/22 06:26 Calculated Osmolality 309 mOsm/kg (285-295) H 04/04/22 06:26 Calcium 8.6 mg/dL (8.5-10.5) 04/04/22 06:26 Phosphorus 4.1 mg/dL (2.5-4.5) 04/01/22 03:53 Magnesium 2.1 mg/dL (1.7-2.3) 04/01/22 03:53 Total Bilirubin 0.9 mg/dL (0.15-1.2) 03/31/22 16:30 AST 11 U/L (0-32) 03/31/22 16:30 ALT 18 U/L (0-33) 03/31/22 16:30 Alkaline Phosphatase 116 U/L (35-105) H 03/31/22 16:30 Troponin T Baseline 30 ng/L (0-10) H 03/31/22 16:30 Troponin T 120 Minute 27.68 ng/L (0-10) H 03/31/22 19:45 Delta Troponin T -2.32 ABS# (0-10) L 03/31/22 19:45 Troponin T Hi Sens 6Hr 32.53 ng/L (0-10) H 03/31/22 22:15 Troponin T Hi Sens 6Hr Delta 2.53 ng/L (0-12) 03/31/22 22:15 C-Reactive Protein 28.2 mg/L (0.0-4.9) H 04/01/22 03:53 NT-Pro-B Natriuret Pep 7606 pg/mL (0-125) H 03/31/22 16:30 Total Protein 6.8 g/dL (6.6-8.7) 03/31/22 16:30 Albumin 3.7 g/dL (3.5-5.2) 03/31/22 16:30 Globulin 3.1 g/dL (1.3-4.6) 03/31/22 16:30 Vitamin B12 866 pg/mL (232-1245) 03/31/22 16:30 Procalcitonin 0.10 ng/mL (0-0.5) 03/31/22 16:30 Procalcitonin 0.11 ng/mL (0-0.5) 03/31/22 16:30 TSH 1.91 uIU/mL (0.27-4.20) 03/31/22 16:30 Coronavirus 229E (PCR) Not detected (NOT DETECT) 03/31/22 17:50 SARS-CoV-2 (PCR) Not detected (NOT DETECT) 03/31/22 17:50 A&P Assessment and plan (1) New onset of congestive heart failure: The heart failure seems to be fairly compensated at this time. She seems to be somewhat over diuresed. We will hold off on the Lasix at this time. Patient seems to have severe LV systolic dysfunction. The LV ejection fraction was around 20 to 25% by echocardiogram. Atrial fibrillation with rapid ventricular rate, obstructive sleep apnea, reactive airway disease etc. are also contributing to heart failure (2) Atrial fibrillation with RVR: The patient seems to be tolerating the beta-kajal so far well. (3) Hypoxemia: Multifactorial. Seems to be improving. (4) Cardiomyopathy: In order to further evaluate the cardiac status, patient may benefit from a right and left heart catheterization. The need for the study was discussed with the patient. The risk of bleeding, hematoma, vascular injury, myocardial infarction, myocardial perforation, malignant cardiac arrhythmias ,CVA, renal failure and other concomitant complications were explained in detail. Patient understood this well and consented to proceed. We will go ahead and schedule for the procedure at this evening. Because of renal dysfunction, she carries a higher risk for contrast-induced neuropathy. This also was discussed. Patient seems to understand this well. Plan Other problems are Stage II kidney disease Morbid obesity History of degenerative joint disease Chronic back pain ? Peripheral neuropathy Based on the results of the above and also patient clinical progress, further management decisions will be made. Attestations Medical Necessity Statement*: Patient requires continued hospital stay for close monitoring and further management Coding Level of Care Code Acute Code for Chg Fwd History Expanded Problem Focused Exam Detailed Medical Decision Making High Complexity Diagnoses New onset of congestive heart failure I50.9 Atrial fibrillation with RVR I48.91 Hypoxemia R09.02 Cardiomyopathy I42.9
[2022-04-04] MEDS: sodium chloride 0.9% 1,000 ML 75 ML IV ×2 (09:32→21:47)
[2022-04-04] MEDS: metoprolol tartrate 50 mg Tablet PO ×2 (09:33→21:47)
[2022-04-04] MEDS: sodium polystyrene sulfonate 15 gm/60 mL Btl PO (09:33)
[2022-04-04] MEDS: sennosides-docusate Tablet 1 TAB PO (09:33)
[2022-04-04] MEDS: amiodarone 200 mg Tablet 400 MG PO ×2 (09:33→17:28)
--- NOTE | 2022-04-04 09:34 | PC.NURSE ---
Potassium chloride 20mg not given because patient's potassium was 5.3. MD velasco
[2022-04-04 10:15] LABS: Anion Gap 16.5 (5-19); Blood Urea Nitrogen 43 mg/dL (8-23); Calcium 9.2 mg/dL (8.5-10.5); Carbon Dioxide 23 mmol/L (22-29); Chloride 103 mmol/L (98-107); Glomerular Filtration Rate 32.6 mL/min (90-130); Glucose 164 mg/dL (65-115); Osmolality Calculated 300 mOsm/kg (285-295); Potassium 4.5 mmol/L (3.5-5.1); Sodium 138 mmol/L (136-145)
[2022-04-04] MEDS: acetaminophen 500 mg Tablet PO (12:28)
[2022-04-04] MEDS: ipratropium-albuterol 3 mL Neb INHALATION (13:28)
[2022-04-04 14:39] LABS: Anion Gap 18.3 (5-19); Blood Urea Nitrogen 41 mg/dL (8-23); Calcium 8.5 mg/dL (8.5-10.5); Carbon Dioxide 21 mmol/L (22-29); Chloride 104 mmol/L (98-107); Glomerular Filtration Rate 50.2 mL/min (90-130); Glucose 114 mg/dL (65-115); Osmolality Calculated 299 mOsm/kg (285-295); Potassium 4.3 mmol/L (3.5-5.1); Sodium 139 mmol/L (136-145)
--- NOTE | 2022-04-04 15:31 | XACV_ITS ---
Exam Room: [facility] Ht: 183 cm Wt: 150 kg BSA: 2.83 m2 Gender: Female : 1960 Any Known Allergies: Other Exam Priority: Routine Procedure(s): Procedure Description: Diagnostic procedure Procedure Description: Right Heart Catheterization Procedure Description: Coronary Angiography Catarino ROBERT; Diagnostic Cath Status: Elective Diagnostic Findings * The left main is a medium caliber vessel with no significant stenotic lesions. * The left-sided descending artery is a medium caliber vessel which appears to wrap around the LV apex minimally. The proximal to the mid LAD was found to have mild to moderate diffuse calcification. Around the takeoff of the first diagonal branch, there was a 50% tubular narrowing. Distal artery was found to have minimal intimal irregularities.. * The circumflex artery is a small to medium caliber nondominant vessel which appears to bifurcate near its ostium giving off 2 obtuse marginal branches. Diffuse intimal irregularities were noted in these vessels. No significant stenotic lesions were noted. * The right coronary artery is a medium caliber dominant vessel with mild diffuse intimal regularities. No significant stenotic lesions were noted. Conclusions 1. 61-year-old white female presenting with progressive shortness of breath. She was found to be in atrial fibrillation and features of congestive heart failure. Echocardiogram revealed LV ejection fraction around 20 to 25%. Her heart failure was treated with IV diuretics and other symptomatic measures. For further evaluation of her cardiovascular status, a right and left heart catheterization with right and left coronary angiogram was recommended. Patient underwent the procedure today. The findings are as follows. 2. Right ventricular pressure was 53/13. Right atrial mean pressure was 22 mmHg. Because of some technical difficulties, PA pressure was not obtained. Cardiac output by Hayley's method was 3.0 with an index of 1.0.. Coronary angiogram revealed mild to moderate diffuse calcification in the proximal to mid LAD with 50% tubular lesion around the takeoff of the first diagonal branch. Minimal intimal irregularities were noted in the other vessels. No significant stenotic lesions were seen. LVEDP was 18 mmHg. Diagnostic RX Recommendation: medical therapy and/or counseling LV EDP: 18 mmHg Left Ventriculography Findings: * The LV gram was not performed because of the patient's renal insufficiency. The LVEDP was 18 mmHg. Pressures Phase:Rest AO : 95 / 76 ( 82 ) @ 4:33:00 PM 92 / 69 ( 77 ) @ 4:42:00 PM 95 / 55 ( 72 ) @ 4:42:00 PM LV : 89 / 4 / 17 @ 4:41:00 PM 89 / 4 / 18 @ 4:42:00 PM RV : 53 / 13 / 17 @ 4:26:00 PM 57 / 16 / 15 @ 4:27:00 PM RA : a wave = 24 v wave = 27 mean = 22 @ 4:24:00 PM Saturations Phase:Rest AO : 87 @ 4:42:00 PM RA : 39 @ 4:42:00 PM RV : 40 @ 4:33:00 PM Cardiac Output Phase:Rest Hayley : 3 @ 4:53:23 PM Hayley Cardiac Index: 1 @ 4:53:23 PM Flow Phase:Rest Qs : 3 @ 4:53:23 PM Valves Phase:DefaultPhase AV : 0.0 @ 4:53:23 PM 0.0 @ 4:53:23 PM AV Mean Gradient: 0.0 @ 4:53:23 PM 0.0 @ 4:53:23 PM AV Flow: 372 @ 4:53:23 PM Clinical Evaluation EBL: 5mL-10mL Procedural Details Procedure Consent Obtained. Pre-Procedure Time Out. Identified patient by full name and date of as verbalized by the patient/guarantor. Does the consent match the physician's order: Yes. Accurate & Complete Informed Consent: Yes. Inpatient/Outpatient History & Physical on Chart: Yes. If H&P is completed, is and addenduem needed: No. Visualize and Verify Site with Patient/Guarantor: N/A. Relevant Radiology Images available: Yes. The risks, benefits, and alternatives of sedation and/or procedure were discussed by physician. The patient agrees to continue. Procedure started. [facility] Clinical Fraility Score: 4: Vulnerable. Health Sciences Dean Indications: LV Dysfunction. Chest Pain Symptom Assessment: Asymptomatic. Cardiovascular Instability: No. Correct patient, site and procedure confirmed by cath team. PERRLA. 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 Lungs clear x 5 lobes. IV Site on Arrival: 20 gauge in the left anticubital. IV Fluids: 0.9% NaCl at KVO. 500 mL infused prior to laborer pipelines. Pre Procedural Pulses: bilateral dorsalis pedis was Doppled. Pre Procedural Pulses: bilateral posterior tibial was Doppled. right groin was prepped with chloroprep then draped in the usual sterile fashion. Physician notified. Baseline sample Acquired. HR: [address] cath in place on arrival to the laborer pipelines. Patient's family unavailable. Equipment: 6F - Femoral. Cardiac Cath Pack. [employer] Manifold Kit Model BT 2000. Heparinized Saline (2 units/mL), 1000 mL bag. Kit, Micropuncture. Physician arrived. Physician scrubbed in. Immediate Pre-Procedure Time Out. Correct Patient: Yes; Correct Procedure: Yes; Correct Site: Yes; Correct Patient Position: Yes; Correct Supplies: Yes; Dried Flammable Prep: Yes; Blood Products Available: N/A;. Lidocaine 1% infiltrated to the right groin. Venous access obtained with a micropuncture set. Arterial access obtained with micropuncture set. [place] in. 0.025 swan wire out. 0.025 swan wire in. 0.025 swan wire in. 0.025 swan wire out. 0.025 swan wire in. 0.025 swan wire out. Oximetry samples were obtained. Normal venous range: 60-85%. Normal arterial range: 95-100%. Pressure measurements obtained. ABG drawn and sent with respiratory therapy. [place] out. A 5 guatem[place] JL4 catheter in over wire. Multiple views taken of left coronary artery. Catheter removed over the standard wire. A 5 guatemalan JR4 catheter in over wire. Catheter removed over the standard wire. A 5 guatemalan Angled Pig catheter in over wire. EDP Sample taken: LV 89/4,17; HR: 93 BPM; SpO2: 97%. Pullback taken: LV 89/4,18; AO 92/69(77); Mean: 0mmHg, Peak to Peak: 0mmHg, SEP: 9sec/min; HR: 93 BPM; SpO2: 100%. Catheter removed over the standard wire. Dr. Toribio scrubbed out. A Suture was successful obtaining hemostatsis at the Right Femoral vein insertion site. A Suture was successful obtaining hemostatsis at the Right Femoral artery insertion site. Sheath(s) sutured into position with 2-0 silk and sterile 4x4's and Op-site applied over the site. No oozing or signs and symptoms of hematoma noted. Arterial sheath flushed and connected to tranducer and pressure bag with heparinized saline. Venous sheath flushed. Post Procedure: Pulses reassessed and unchanged. PERRLA. 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 Medication's Wasted: Heparin = 2500 units. Total IV fluids: 60 mL. 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 Complications: none. Estimated blood loss: 5mL-10mL. Responsiveness - Normal response to verbal stimuli; alert and oriented, PERRLA. Airway - Unaffected, no intervention required; spontaneous ventilation. Circulation: W/N/L, pulses unchanged. Nausea/Vomiting: No. Procedure completed. Patient transferred by bed to 1st floor. Vital chart was stopped. Access Site Site: Right Femoral vein Sheath Size: 6 Fr Hemostasis Method: Suture Hemostasis Success: Successful Site: Right Femoral artery Sheath Size: 5 Fr Hemostasis Method: Suture Hemostasis Success: Successful Procedure Medications Start: 4:09 PM Stop: 4:09 PM Medication: Versed Amount: 0.5 mg Route: I.V. Start: 4:09 PM Stop: 4:09 PM Medication: Fentanyl Amount: 25 mcg Route: I.V. Start: 4:30 PM Stop: 4:30 PM Medication: Versed Amount: 0.5 mg Route: I.V. Start: 4:30 PM Stop: 4:30 PM Medication: Fentanyl Amount: 25 mcg Route: I.V. Start: 4:33 PM Stop: 4:33 PM Medication: Heparin Amount: 1500 units Start: 4:38 PM Stop: 4:38 PM Medication: Versed Amount: 0.5 mg Route: I.V. Start: 4:38 PM Stop: 4:38 PM Medication: Fentanyl Amount: 25 mcg Route: I.V. I, the attending physician, have reviewed and verified all procedure medications. Yes, all medications given per verbal order History/Risk Factors Hypertension: No Dyslipidemia: No Peripheral Arterial Disease (PAD): No Myocardial Infarction ([place]): No Obesity: Yes Renal Disease: No Tobacco Use: Former Prior Interventions PCI: No CABG: No Valve Surgery: No Report Signatures Finalized by Dr Kaci Toribio MD [facility] on 04/04/2022 08:37 PM
--- NOTE | 2022-04-04 15:40 | W.PM.OPSUD ---
Surgery/Procedure H&P Update DATE OF PROCEDURE: April 04, 2022 DATE H&P PERFORMED: 04/02/22 H&P UPDATE INFORMATION: I have reviewed H&P completed within last 30 days, I have examined patient prior to procedure and No changes to prior documentation PREOP DIAGNOSIS: Atrial fibrillation/cardiomyopathy/congestive heart failure PRIMARY INDICATION FOR PROCEDURE: Severe LV systolic dysfunction/congestive heart failure/atrial fibrillation PLANNED PROCEDURE: Left and right heart catheterization with left and right coronary angiogram and possible PCI PATIENT REASSESSED PRIOR TO SEDATION, WITH NO CHANGE NOTED: Yes PHYSICAL EXAM: alert, oriented x 3 and clear to auscultation bilaterally (Bilateral expiratory wheeze and occasional coarse crackles) AIRWAY EVAL/ANESTHESIA PLAN: normal airway, see other exam findings, ASA III, Monitored Anesthesia, Local Anesthesia, Risks, benefits & alternatives of sedation and/or procedure discussed and Patient agrees to continue as planned
[2022-04-04 16:39] LABS: Arterial Blood Gas Hematocrit 42.3 % (37-47); Blood Gas Operator Identificat WALCI; Blood Gas Sample Type Not specified; Carboxyhemoglobin 1.1 %THgb (0.4-20.1); HGB O2 Sat 38.3 % (95-100); Methemoglobin 0.8 % (0.4-1.5); Oxygen Device ROOM AIR; Total Hemoglobin 13.8 g/dL (12-16)
[2022-04-04 16:40] LABS: Arterial Blood Gas Hematocrit 42.4 % (37-47); Blood Gas Operator Identificat MONRO; Blood Gas Sample Site Not specified; Blood Gas Sample Type Not specified; Carboxyhemoglobin 1.2 %THgb (0.4-20.1); HGB O2 Sat 85.8 % (95-100); Methemoglobin 0.3 % (0.4-1.5); Oxygen Device ROOM AIR; Total Hemoglobin 13.8 g/dL (12-16)
[2022-04-04 16:41] LABS: Arterial Blood Gas Hematocrit 43.4 % (37-47); Blood Gas Operator Identificat WALCI; Blood Gas Sample Type Not specified; Carboxyhemoglobin 1.1 %THgb (0.4-20.1); Methemoglobin 0.9 % (0.4-1.5); Oxygen Device ROOM AIR; Total Hemoglobin 14.2 g/dL (12-16)
[2022-04-04] MEDS: HYDROcodone-acetaminophen 5-325 mg Tablet 1 TAB PO (18:41)
--- NOTE | 2022-04-04 19:00 | PC.NURSE ---
Sheath was pulled at 18:42. At the time of assessment the patients right groin site is covered with a dessing and is dry and intact. The site is soft, no hematoma present. Pulses are palpable in the right extremity and the extremity is warm to the touch. The patient denies any pain or discomfort. Educated patient that she will be on bedrest untill 12:42 am. The patient verbalized understanding.
[2022-04-05] VITALS (8 sets, daily range): BP systolic 100–141; BP diastolic 76–89; PULSE 84–105; RESP 16–28; TEMP 36.6–36.9; O2SAT 91–100
[2022-04-05] MEDS: ALPRAZolam 0.5 mg Tablet 0.25 MG PO ×3 (01:27→17:51)
--- NOTE | 2022-04-05 01:30 | PC.NURSE ---
Right groin site assessed, dressing is dry and intact. Site is soft, no hematoma present. Pulses are palpable in the right lower extremity. Patient was assisted out of bed after bedrest completed. Patient bed linens were changed. Patient was assisted back into bed. Right groin site assessed after getting out of bed with no change. The patient is continuing to complain of shirtness of breath, refusing to go on the bipap. Lung sounds are diminished in the lower lobes with exp wheezing but 02 SAT is still 94% on 2l. IV fluids were put on hold at this time and patient medicated for complaints of anxiety.
[2022-04-05] MEDS: HYDROcodone-acetaminophen 5-325 mg Tablet 1 TAB PO (02:38)
[2022-04-05] MEDS: temazepam 15 mg Capsule PO ×2 (02:38→22:01)
--- NOTE | 2022-04-05 03:00 | PC.NURSE ---
Spoke with regarding patients complaints of shortness of breath, IV fluids that were put on hold and patients lung sounds. ordered a chest xray.
--- NOTE | 2022-04-05 03:03 | XRR_ITS ---
PROCEDURE INFORMATION: Exam: XR Chest Exam date and time: 04/05/2022 3:14 AM Age: 61 years old Clinical indication: Shortness of breath; Patient HX: Worsening SOB. History of afib and cad. ; Additional info: Increased SOB TECHNIQUE: Imaging protocol: Radiologic exam of the chest. Views: 1 view. COMPARISON: CR (CHEST, ) 03/31/2022 4:49 PM FINDINGS: Lungs: Mild cardiomegaly with central pulmonary vascular enlargement. Pleural spaces: Unremarkable. No pleural effusion. No pneumothorax. Heart/Mediastinum: See Lungs finding. Bones/joints: Unremarkable. XR/XR chest 1V portable [id number] IMPRESSION: Mild cardiomegaly with central pulmonary vascular enlargement.
[2022-04-05 03:14] LABS: Basophils # 0.1 10^3/uL (0.0-0.1); Basophils % 1.2 %; Eosinophils # 0.1 10^3/uL (0.0-0.8); Eosinophils % 1.9 %; Hematocrit 44.3 % (37.0-47.0); Hemoglobin 13.4 g/dL (11.5-15.3); Lymphocytes # 0.8 10^3/uL (0.8-4.8); Lymphocytes % 11.2 %; Mean Corpuscular HGB Conc 30.2 g/dL (30.0-36.0); Mean Corpuscular Hemoglobin 28.6 pg (28.0-34.0); Mean Corpuscular Volume 94.5 fl (81-99); Mean Platelet Volume 10.4 fL (7.4-10.4); Monocytes # 0.8 10^3/uL (0.2-0.9); Neutrophils # 5.62 10^3/uL (1.8-7.7); Neutrophils % 75.2 %; Nucleated Red Blood Cells % 0.5 %; Platelet Count 418 10^3/cmm (130-400); Red Blood Count 4.69 10^6/uL (4.1-5.3); White Blood Count 7.5 10^3/uL (4.0-10.0)
[2022-04-05 03:43] LABS: Blood Urea Nitrogen 46 mg/dL (8-23); Calcium 8.5 mg/dL (8.5-10.5); Carbon Dioxide 18 mmol/L (22-29); Chloride 106 mmol/L (98-107); Glomerular Filtration Rate 41.4 mL/min (90-130); Glucose 141 mg/dL (65-115); Osmolality Calculated 304 mOsm/kg (285-295); Sodium 140 mmol/L (136-145)
[2022-04-05 03:50] LABS: Anion Gap 20.9 (5-19); Potassium 4.9 mmol/L (3.5-5.1)
--- NOTE | 2022-04-05 04:37 | PC.NURSE ---
Messaged Dr Grajeda regarding patients chest xray completed, no impression available just the image. to review chest xray.
[2022-04-05] MEDS: enoxaparin 150 mg/mL Syringe SUBCUT (05:39)
--- NOTE | 2022-04-05 06:33 | PM.DCS ---
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 echo complete* [id number] Routine Ultrasound 04/01/22 06:00 Completed CV. echo lmt w/w contras [id number] Routine Ultrasound 04/02/22 10:02 Completed Pending at discharge Category Date Time Status Sestamibi Stress Test Request Routine Exams 04/03/22 10:38 Stop Req ABG Coox Only Stat Lab 04/04/22 16:25 Results ABG Coox Only Stat Lab 04/04/22 16:27 Results ABG Coox Only Stat Lab 04/04/22 16:30 Results Blood Culture Stat Lab 03/31/22 18:50 Results Radiology Impressions Chest X-Ray 04/05/22 03:03 IMPRESSION: Mild cardiomegaly with central pulmonary vascular enlargement. Laboratory Results WBC 7.5 10^3/uL (4.0-10.0) 04/05/22 02:20 RBC 4.69 10^6/uL (4.1-5.3) 04/05/22 02:20 Hgb 13.4 g/dL (11.5-15.3) 04/05/22 02:20 Hct 44.3 % (37.0-47.0) 04/05/22 02:20 MCV 94.5 fl (81-99) 04/05/22 02:20 MCH 28.6 pg (28.0-34.0) 04/05/22 02:20 MCHC 30.2 g/dL (30.0-36.0) 04/05/22 02:20 RDW 17.0 % (12.1-15.1) H 04/05/22 02:20 Plt Count 418 10^3/cmm (130-400) H 04/05/22 02:20 MPV 10.4 fL (7.4-10.4) 04/05/22 02:20 Neut % (Auto) 75.2 % 04/05/22 02:20 Lymph % (Auto) 11.2 % 04/05/22 02:20 [place] % (Auto) 10.0 % 04/05/22 02:20 Eos % (Auto) 1.9 % 04/05/22 02:20 Baso % (Auto) 1.2 % 04/05/22 02:20 Neut # (Auto) 5.62 10^3/uL (1.8-7.7) 04/05/22 02:20 Lymph # (Auto) 0.8 10^3/uL (0.8-4.8) 04/05/22 02:20 [place] # (Auto) 0.8 10^3/uL (0.2-0.9) 04/05/22 02:20 Eos # (Auto) 0.1 10^3/uL (0.0-0.8) 04/05/22 02:20 Baso # (Auto) 0.1 10^3/uL (0.0-0.1) 04/05/22 02:20 Nucleated RBC % (auto) 0.5 % 04/05/22 02:20 Nucleated RBCs # 0.0 /100WBC 04/05/22 02:20 D-Dimer 1.19 ug/mIFEU (0-0.59) H 03/31/22 16:30 Specimen Type Not specified 04/04/22 16:30 Sample Site Not specified 04/04/22 16:25 ABG pH 7.44 (7.35-7.45) 03/31/22 16:39 ABG pCO2 35.3 mmHg (35-45) 03/31/22 16:39 ABG pO2 63.3 mmHg (80.0-100.0) L 03/31/22 16:39 ABG HCO3 24.1 mmol/L (22-26) 03/31/22 16:39 ABG O2 Saturation 92.4 03/31/22 16:39 ABG Base Excess 0.3 mmol/L (-2.0-2.0) 03/31/22 16:39 Luis Test N/a 04/04/22 16:30 A-a O2 Gradient 5.7 mmHg (5-10) 03/31/22 16:39 Hematocrit 43.4 % (37-47) 04/04/22 16:30 Hgb O2 Saturation 39.0 % (95-100) L 04/04/22 16:30 Carboxyhemoglobin 1.1 %THgb (0.4-20.1) 04/04/22 16:30 Methemoglobin 0.9 % (0.4-1.5) 04/04/22 16:30 Total Hemoglobin 14.2 g/dL (12-16) 04/04/22 16:30 Sodium 143.0 mmol/L (131-143) 03/31/22 16:39 Potassium 3.7 mmol/L (3.5-5.0) 03/31/22 16:39 Glucose 115.0 mg/dL (70-115) 03/31/22 16:39 Ionized Calcium 1.2 mmol/L (1.1-1.4) 03/31/22 16:39 O2 Delivery Device Room air 04/04/22 16:30 FiO2 21.0 % 04/04/22 16:30 Registered Public Health Nurse ID [place] 04/04/22 16:30 Sodium 140 mmol/L (136-145) 04/05/22 02:20 Potassium 4.9 mmol/L (3.5-5.1) 04/05/22 02:20 Chloride 106 mmol/L (98-107) 04/05/22 02:20 Carbon Dioxide 18 mmol/L (22-29) L 04/05/22 02:20 Anion Gap 20.9 (5-19) H 04/05/22 02:20 BUN 46 mg/dL (8-23) H 04/05/22 02:20 Creatinine 1.3 mg/dL (0.5-0.9) H 04/05/22 02:20 GFR Calculation 41.4 mL/min (90-130) L 04/05/22 02:20 Glucose 141 mg/dL (65-115) H 04/05/22 02:20 Calculated Osmolality 304 mOsm/kg (285-295) H 04/05/22 02:20 Calcium 8.5 mg/dL (8.5-10.5) 04/05/22 02:20 Phosphorus 4.1 mg/dL (2.5-4.5) 04/01/22 03:53 Magnesium 2.1 mg/dL (1.7-2.3) 04/01/22 03:53 Total Bilirubin 0.9 mg/dL (0.15-1.2) 03/31/22 16:30 AST 11 U/L (0-32) 03/31/22 16:30 ALT 18 U/L (0-33) 03/31/22 16:30 Alkaline Phosphatase 116 U/L (35-105) H 03/31/22 16:30 Troponin T Baseline 30 ng/L (0-10) H 03/31/22 16:30 Troponin T 120 Minute 27.68 ng/L (0-10) H 03/31/22 19:45 Delta Troponin T -2.32 ABS# (0-10) L 03/31/22 19:45 Troponin T Hi Sens 6Hr 32.53 ng/L (0-10) H 03/31/22 22:15 Troponin T Hi Sens 6Hr Delta 2.53 ng/L (0-12) 03/31/22 22:15 C-Reactive Protein 28.2 mg/L (0.0-4.9) H 04/01/22 03:53 NT-Pro-B Natriuret Pep 7606 pg/mL (0-125) H 03/31/22 16:30 Total Protein 6.8 g/dL (6.6-8.7) 03/31/22 16:30 Albumin 3.7 g/dL (3.5-5.2) 03/31/22 16:30 Globulin 3.1 g/dL (1.3-4.6) 03/31/22 16:30 Vitamin B12 866 pg/mL (232-1245) 03/31/22 16:30 Procalcitonin 0.10 ng/mL (0-0.5) 03/31/22 16:30 Procalcitonin 0.11 ng/mL (0-0.5) 03/31/22 16:30 TSH 1.91 uIU/mL (0.27-4.20) 03/31/22 16:30 Coronavirus 229E (PCR) Not detected (NOT DETECT) 03/31/22 17:50 SARS-CoV-2 (PCR) Not detected (NOT DETECT) 03/31/22 17:50 Vitals Last Vital Signs Temp 97.8 F 04/05/22 03:15 Pulse 98 04/05/22 03:15 Resp 16 04/05/22 03:15 BP 106/77 04/05/22 03:15 Pulse Ox 91 04/05/22 03:15 O2 Del Method 04/05/22 03:15 O2 Flow Rate 3 04/05/22 03:15 FiO2 30 04/04/22 23:10 Discharge Plan Discharge Patient Disposition: Home Condition: Stable Prescriptions: New amiodarone [Pacerone] 200 mg Tablet 400 mg PO DAILY Qty: 60 0RF metoprolol tartrate 50 mg Tablet 50 mg PO BID@0900,2100 Qty: 60 1RF Continued carvedilol 3.125 mg tablet 3.125 mg PO BIDWM hydrocodone-acetaminophen 10-325 mg tablet 1 tab PO BID PRN (Reason: Pain) potassium chloride 20 mEq tablet,ER particles/crystals 20 meq PO DAILY albuterol sulfate 90 mcg/actuation HFA aerosol inhaler 2 puff INHALATION Q6H PRN (Reason: Shortness Of Breath) Eliquis 5 mg Tablet 5 mg PO BID Qty: 60 0RF Changed furosemide 40 mg Tablet 40 mg PO DAILY Qty: 60 3RF Discontinued Diltzac ER 180 mg Capsule,Extended Release 24 Hr 180 mg PO BID Naprosyn 250 mg Tablet 250 mg PO BID spironolactone 25 mg tablet 25 mg PO DAILY losartan 25 mg tablet 25 mg PO DAILY Discharge Orders: Discharge Order (Routine); Ordered 04/05/22 Ordered By: Paul Tran Referrals: Mo Mike [Primary Care Provider] - Kaci Toribio MD [Physician] - 1 month Liv Bishop FNP [Nurse Practitioner] - 2 weeks Patient Instructions: Opioid Safety Coding Level of Care Code Acute Chg FW DC note Diagnoses New onset of congestive heart failure I50.9 Atrial fibrillation with RVR I48.91 Hypoxemia R09.02 Cardiomyopathy I42.9
--- NOTE | 2022-04-05 08:14 | P.PN_ITS ---
Subjective Subjective: This morning patient still feeling short of breath and fatigue she is agreeable to go to rehab if needed, will request home O2 eval and physical therapy Not ready to be discharged today She is experiencing conversational dyspnea Vitals/I&O/Wt Last Vital Signs Temp 98.5 F 04/05/22 07:36 Pulse 89 04/05/22 07:36 Resp 28 H 04/05/22 07:36 BP 119/87 04/05/22 07:36 Pulse Ox 99 04/05/22 07:36 O2 Del Method 04/05/22 07:36 O2 Flow Rate 3 04/05/22 03:15 FiO2 30 04/04/22 23:10 04/04/22 04/05/22 04/05/22 22:59 06:59 14:59 Intake Total 1638.75 / 1998.75 338.75 / 2337.50 Output Total 700 / 700 Balance 938.75 / 1298.75 338.75 / 1637.50 Physical Exam Narrative: Clinical sign of fluid overload Patient has conversational dyspnea Currently on 3 L nasal cannula Awake and alert Clinical sign of fluid overload 3+ edema of legs Abdomen distended Anxious appearing EOMI, PERRLA Nonfocal neuro exam Data 04/05/22 02:20 04/05/22 02:20 A&P Assessment and plan (1) Cardiomyopathy: (2) Previous back surgery: (3) New onset of congestive heart failure: (4) Atrial fibrillation with RVR: (5) Hypoxemia: Plan Nonischemic cardiomyopathy Patient may need LifeVest After 90 days we will need reimaging with echo A. fib without RVR heart rate better on amiodarone and metoprolol regimen I will switch her back to Eliquis Acute hypoxia related to CHF Patient requires BiPAP overnight Her heart failure most likely related to undiagnosed sleep apnea Nocturnal hypoxemia noted TAMMIE: Cardiorenal, creatinine around 1.3 She was over diuresed that worsened her creatinine to 1.4 and 1.6 after gentle fluid hydration it is coming down to 1.3 Continue IV diuretics patient is still experiencing conversational dyspnea She might need rehab we will follow-up with physical therapy Attestations Medical Necessity Statement*: Continue medical management Time Spent in Patient Care: 30 Coding Level of Care Code Acute Code for [facility] Fwd Diagnoses Cardiomyopathy I42.9 Previous back surgery Z98.890 New onset of congestive heart failure I50.9 Atrial fibrillation with RVR I48.91 Hypoxemia R09.02
--- NOTE | 2022-04-05 08:19 | XR_ITS ---
WS: [id number] XR chest 1V portable [id number] REASON FOR EXAM: chf FINDINGS: The heart is enlarged. The pulmonary vascularity and interstitium are essentially normal at this time. No other interval change or new finding. XR/XR chest 1V portable [id number] IMPRESSION: Cardiomegaly without other abnormality.
[2022-04-05] MEDS: amiodarone 200 mg Tablet 400 MG PO ×2 (09:04→17:51)
[2022-04-05] MEDS: potassium chloride ER 20 mEq Tablet PO (09:05)
[2022-04-05] MEDS: sennosides-docusate Tablet 1 TAB PO (09:05)
[2022-04-05] MEDS: bumetanide 1 mg Tablet PO ×2 (09:05→09:16)
[2022-04-05] MEDS: apixaban 5 mg Tablet PO ×2 (09:06→19:57)
[2022-04-05] MEDS: metoprolol tartrate 50 mg Tablet PO ×2 (09:14→19:57)
[2022-04-05] MEDS: acetaminophen 500 mg Tablet PO ×2 (09:14→17:50)
[2022-04-05 10:25] LABS: Blood Gas Operator Identificat CAK; Blood Gas Sample Type Venous; HCO3 VBG 24.1 mmol/L (24-28); PCO2 VBG 40.6 mmHg (41-51); Venous Blood Gas Hematocrit 42.6 % (37-47); pH VBG 7.38 (7.32-7.42)
--- NOTE | 2022-04-05 10:56 | PM.PN ---
Subjective Subjective: The patient had right and left heart catheterization yesterday. She was found to have mild coronary artery disease. She has moderate pulmonary hypertension. We used around 65 cc of dye for the procedure. Patient is a BUN/creatinine slightly on the higher side today. Denies any chest pain. She continues to have shortness of breath with activities. She also has significant wheezing even with minimal movements Medications: Medication Review Details: Current Medications Acetaminophen (Acetaminophen 500 Mg Tablet) 500 mg PO Q4H PRN PRN Reason: fever Last Admin: 04/05/22 09:14 Dose: 500 mg Hydrocodone Bitart/Acetaminophen (Hydrocodone-Acetaminophen 5-325 Mg Tablet) 1 tab PO Q4H PRN PRN Reason: MODERATE PAIN Last Admin: 04/05/22 02:38 Dose: 1 tab Al Hydrox/Mg Hydrox/Simethicone (Zqzd-Iuj-Nndoqnsqo-Jf 30 Ml Udc) 30 ml PO Q15M PRN PRN Reason: INDIGESTION Albuterol/Ipratropium (Ipratropium-Albuterol 3 Ml Neb) 3 ml INHALATION Q6H PRN PRN Reason: SHORTNESS OF BREATH Last Admin: 04/04/22 13:28 Dose: 3 ml Alprazolam (Alprazolam 0.5 Mg Tablet) 0.25 mg PO TID PRN PRN Reason: ANXIETY Last Admin: 04/05/22 01:27 Dose: 0.25 mg Amiodarone HCl (Amiodarone 200 Mg Tablet) 400 mg PO BID [facility] Last Admin: 04/05/22 09:04 Dose: 400 mg Apixaban (Apixaban 5 Mg Tablet) 5 mg PO BID@0900,2100 [facility] Last Admin: 04/05/22 09:06 Dose: 5 mg Atropine Sulfate (Atropine 1 Mg/Ml Sdv 1 Ml) 0.5 mg IVP PRN PRN PRN Reason: Symptomatic bradycardia Bumetanide (Bumetanide 1 Mg Tablet) 1 mg PO DAILY [facility] Last Admin: 04/05/22 09:16 Dose: 1 mg Denture Adhesive (Fixodent 39 Gm Tube) 1 applic DENTAL PRN PRN PRN Reason: denture adhesive Denture Adhesive (Efferdent Effervescent) 1 each DENTAL PRN PRN PRN Reason: dental addhesion Lanolin (Lanolin Oint 7 Gm) 1 applic TOPICAL PRN PRN PRN Reason: DRYNESS Last Admin: 04/04/22 07:36 Dose: 1 applic Magnesium Hydroxide (Magnesium Hydroxide 30 Ml Udc) 30 ml PO DAILY PRN PRN Reason: CONSTIPATION Metoprolol Tartrate (Metoprolol Tartrate 50 Mg Tablet) 50 mg PO BID@0900,2100 [facility] Last Admin: 04/05/22 09:14 Dose: 50 mg Naloxone HCl (Naloxone 0.4 Mg/Ml Sdv) 0.1 mg IVP Q2M PRN PRN Reason: RESPIRATORY RATE < 8/MIN Nitroglycerin (Nitroglycerin 0.4 Mg Sublingual Tablet) 0.4 mg SUBLINGUAL Q5M PRN PRN Reason: CHEST PAIN Ondansetron HCl (Ondansetron 2 Mg/Ml Sdv 2 Ml) 4 mg IVP Q6H PRN PRN Reason: NAUSEA AND VOMITING Potassium Chloride (Potassium Chloride Er 20 Meq Tablet) 20 meq PO DAILY [facility] Last Admin: 04/05/22 09:05 Dose: 20 meq Senna/Docusate Sodium (Sennosides-Docusate Tablet) 1 tab PO DAILY [facility] Last Admin: 04/05/22 09:05 Dose: 1 tab Temazepam (Temazepam 15 Mg Capsule) 15 mg PO BEDTIME PRN PRN Reason: INSOMNIA Last Admin: 04/05/22 02:38 Dose: 15 mg Vitals/I&O/Wt Last Vital Signs Temp 98.5 F 04/05/22 07:36 Pulse 89 04/05/22 07:36 Resp 28 H 04/05/22 07:36 BP 119/87 04/05/22 07:36 Pulse Ox 99 04/05/22 07:36 O2 Del Method 04/05/22 07:36 O2 Flow Rate 3 04/05/22 03:15 FiO2 30 04/04/22 23:10 04/04/22 04/05/22 04/05/22 22:59 06:59 14:59 Intake Total 1638.75 / 1998.75 338.75 / 2337.50 480 / 480 Output Total 700 / 700 Balance 938.75 / 1298.75 338.75 / 1637.50 480 / 480 Physical Exam Narrative: GENERAL: The patient is somewhat drowsy. Not in any acute distress. Morbidly obese. Mild respiratory distress HEENT: No significant pallor, icterus or lymphadenopathy.Oral cavity: There are no mucous membrane lesions. NECK: Trachea appears to be central. No masses noted. No JVD or thyromegaly appreciated. RESPIRATORY: Chest is symmetrical. No intercostals muscle retraction or any accessory muscle activation. There is no chest wall tenderness. Breath sounds are heard bilaterally. Diffuse expiratory wheeze and coarse crackles bilaterally BREASTS: Deferred. HEART: The heart sounds are normal. No S3 or S4. No significant murmurs. No pericardial rub ABDOMEN: No vessel pulsations or distention. No tenderness. No organomegaly appreciated. Bowel sounds are normally heard. : Deferred. RECTAL: Deferred. LYMPHATIC: No lymphadenopathy noted in the neck. EXTREMITIES: No hematoma bleeding from the right groin. Chronic edema around the ankles MUSCULOSKELETAL: No acute joint deformities or swelling SKIN: There are no significant rashes or ecchymosis NEUROPSYCHIATRIC: No focal motor deficits. Data 04/05/22 02:20 04/05/22 02:20 Other Labs: Laboratory Last Values WBC 7.5 10^3/uL (4.0-10.0) 04/05/22 02:20 RBC 4.69 10^6/uL (4.1-5.3) 04/05/22 02:20 Hgb 13.4 g/dL (11.5-15.3) 04/05/22 02:20 Hct 44.3 % (37.0-47.0) 04/05/22 02:20 MCV 94.5 fl (81-99) 04/05/22 02:20 MCH 28.6 pg (28.0-34.0) 04/05/22 02:20 MCHC 30.2 g/dL (30.0-36.0) 04/05/22 02:20 RDW 17.0 % (12.1-15.1) H 04/05/22 02:20 Plt Count 418 10^3/cmm (130-400) H 04/05/22 02:20 MPV 10.4 fL (7.4-10.4) 04/05/22 02:20 Neut % (Auto) 75.2 % 04/05/22 02:20 Lymph % (Auto) 11.2 % 04/05/22 02:20 [place] % (Auto) 10.0 % 04/05/22 02:20 Eos % (Auto) 1.9 % 04/05/22 02:20 Baso % (Auto) 1.2 % 04/05/22 02:20 Neut # (Auto) 5.62 10^3/uL (1.8-7.7) 04/05/22 02:20 Lymph # (Auto) 0.8 10^3/uL (0.8-4.8) 04/05/22 02:20 [place] # (Auto) 0.8 10^3/uL (0.2-0.9) 04/05/22 02:20 Eos # (Auto) 0.1 10^3/uL (0.0-0.8) 04/05/22 02:20 Baso # (Auto) 0.1 10^3/uL (0.0-0.1) 04/05/22 02:20 Nucleated RBC % (auto) 0.5 % 04/05/22 02:20 Nucleated RBCs # 0.0 /100WBC 04/05/22 02:20 D-Dimer 1.19 ug/mIFEU (0-0.59) H 03/31/22 16:30 Specimen Type Venous 04/05/22 10:15 Sample Site Not Reportable 04/05/22 10:15 ABG pH 7.44 (7.35-7.45) 03/31/22 16:39 ABG pCO2 35.3 mmHg (35-45) 03/31/22 16:39 ABG pO2 63.3 mmHg (80.0-100.0) L 03/31/22 16:39 ABG HCO3 24.1 mmol/L (22-26) 03/31/22 16:39 ABG O2 Saturation 92.4 03/31/22 16:39 ABG Base Excess 0.3 mmol/L (-2.0-2.0) 03/31/22 16:39 Luis Test N/a 04/05/22 10:15 VBG pH 7.38 (7.32-7.42) 04/05/22 10:15 VBG pCO2 40.6 mmHg (41-51) L 04/05/22 10:15 VBG pO2 50.0 mmHg (25-40) H 04/05/22 10:15 VBG HCO3 24.1 mmol/L (24-28) 04/05/22 10:15 VBG Base Excess -1.0 mmol/L (-3.0-3.0) 04/05/22 10:15 VBG Hematocrit 42.6 % (37-47) 04/05/22 10:15 A-a O2 Gradient 5.7 mmHg (5-10) 03/31/22 16:39 Hematocrit 43.4 % (37-47) 04/04/22 16:30 Hgb O2 Saturation 39.0 % (95-100) L 04/04/22 16:30 Carboxyhemoglobin 1.1 %THgb (0.4-20.1) 04/04/22 16:30 Methemoglobin 0.9 % (0.4-1.5) 04/04/22 16:30 Total Hemoglobin 14.2 g/dL (12-16) 04/04/22 16:30 Sodium 143.0 mmol/L (131-143) 03/31/22 16:39 Potassium 3.7 mmol/L (3.5-5.0) 03/31/22 16:39 Glucose 115.0 mg/dL (70-115) 03/31/22 16:39 Ionized Calcium 1.2 mmol/L (1.1-1.4) 03/31/22 16:39 O2 Delivery Device Not Reportable 04/05/22 10:15 FiO2 21.0 % 04/04/22 16:30 Chief Of Planning ID Cak 04/05/22 10:15 Sodium 140 mmol/L (136-145) 04/05/22 02:20 Potassium 4.9 mmol/L (3.5-5.1) 04/05/22 02:20 Chloride 106 mmol/L (98-107) 04/05/22 02:20 Carbon Dioxide 18 mmol/L (22-29) L 04/05/22 02:20 Anion Gap 20.9 (5-19) H 04/05/22 02:20 BUN 46 mg/dL (8-23) H 04/05/22 02:20 Creatinine 1.3 mg/dL (0.5-0.9) H 04/05/22 02:20 GFR Calculation 41.4 mL/min (90-130) L 04/05/22 02:20 Glucose 141 mg/dL (65-115) H 04/05/22 02:20 Calculated Osmolality 304 mOsm/kg (285-295) H 04/05/22 02:20 Calcium 8.5 mg/dL (8.5-10.5) 04/05/22 02:20 Phosphorus 4.1 mg/dL (2.5-4.5) 04/01/22 03:53 Magnesium 2.1 mg/dL (1.7-2.3) 04/01/22 03:53 Total Bilirubin 0.9 mg/dL (0.15-1.2) 03/31/22 16:30 AST 11 U/L (0-32) 03/31/22 16:30 ALT 18 U/L (0-33) 03/31/22 16:30 Alkaline Phosphatase 116 U/L (35-105) H 03/31/22 16:30 Troponin T Baseline 30 ng/L (0-10) H 03/31/22 16:30 Troponin T 120 Minute 27.68 ng/L (0-10) H 03/31/22 19:45 Delta Troponin T -2.32 ABS# (0-10) L 03/31/22 19:45 Troponin T Hi Sens 6Hr 32.53 ng/L (0-10) H 03/31/22 22:15 Troponin T Hi Sens 6Hr Delta 2.53 ng/L (0-12) 03/31/22 22:15 C-Reactive Protein 28.2 mg/L (0.0-4.9) H 04/01/22 03:53 NT-Pro-B Natriuret Pep 7606 pg/mL (0-125) H 03/31/22 16:30 Total Protein 6.8 g/dL (6.6-8.7) 03/31/22 16:30 Albumin 3.7 g/dL (3.5-5.2) 03/31/22 16:30 Globulin 3.1 g/dL (1.3-4.6) 03/31/22 16:30 Vitamin B12 866 pg/mL (232-1245) 03/31/22 16:30 Procalcitonin 0.10 ng/mL (0-0.5) 03/31/22 16:30 Procalcitonin 0.11 ng/mL (0-0.5) 03/31/22 16:30 TSH 1.91 uIU/mL (0.27-4.20) 03/31/22 16:30 Coronavirus 229E (PCR) Not detected (NOT DETECT) 03/31/22 17:50 SARS-CoV-2 (PCR) Not detected (NOT DETECT) 03/31/22 17:50 A&P Assessment and plan (1) New onset of congestive heart failure: The patient requires GDMT. Because of her episodes of hypotension, she needs to be closely monitored. (2) Atrial fibrillation with RVR: Continue on the current medications. She needs to be on a tapering dose of amiodarone. (3) Hypoxemia: It is improving. Her morbid obesity and reactive airway disease are major contributing factor's. (4) Cardiomyopathy: Since she has only mild coronary artery disease, she she has nonischemic cardiomyopathy. In view of the severe LV dysfunction, she may require an ICD later on. For the time being, she may benefit from LifeVest. Plan Other problems are Stage II kidney disease-need careful hydration Morbid obesity History of degenerative joint disease Chronic back pain ? Peripheral neuropathy Discussed with Dr Tran. Patient will be carefully hydrated. LifeVest is ordered. GDMT-need to be advanced Dr. Santoro will be following this patient, in my absence. Attestations Medical Necessity Statement*: Patient requires continued hospital stay for close monitoring and further management Coding Level of Care Code Acute Code for Chg Fwd History Expanded Problem Focused Exam Detailed Medical Decision Making Moderate Complexity Diagnoses New onset of congestive heart failure I50.9 Atrial fibrillation with RVR I48.91 Hypoxemia R09.02 Cardiomyopathy I42.9
--- NOTE | 2022-04-05 18:15 | PC.NURSE ---
Matteo, from [facility] suggested that this patient would not be a good candidate for a [employer] Life Vest and global technical writer agrees. She is sometimes incoherent, unable to respond well, and lethargic. Matteo asked if she would be able to respond appropriately to a Zoll alert and both Maxx Castillo RN, and myself agreed she would not. Dr. Tran notified. No response given.
[2022-04-06] VITALS (108 sets, daily range): BP systolic 88–128; BP diastolic 0–107; PULSE 76–127; RESP 0–50; TEMP 35.6; O2SAT 87–100
[2022-04-06] MEDS: ALPRAZolam 0.5 mg Tablet 0.25 MG PO ×3 (03:56→19:20)
[2022-04-06] MEDS: ipratropium-albuterol 3 mL Neb INHALATION ×2 (07:37→11:41)
[2022-04-06] MEDS: potassium chloride ER 20 mEq Tablet PO (08:38)
[2022-04-06] MEDS: bumetanide 1 mg Tablet PO (08:38)
[2022-04-06] MEDS: amiodarone 200 mg Tablet 400 MG PO ×2 (08:38→17:40)
[2022-04-06] MEDS: apixaban 5 mg Tablet PO ×2 (08:39→22:52)
[2022-04-06] MEDS: sennosides-docusate Tablet 1 TAB PO (08:39)
[2022-04-06] MEDS: metoprolol tartrate 50 mg Tablet PO (08:42)
--- NOTE | 2022-04-06 10:08 | PM.PN ---
Subjective Subjective: Patient has calmed down a little bit This morning she is stating that she worked with physical therapy to some extent yesterday Her net fluid balance is equal She is on 3 L Willing to work with PT to decide whether she would return home versus rehab Vitals/I&O/Wt Last Vital Signs Temp 98.3 F 04/05/22 15:20 Pulse 87 04/06/22 08:11 Resp 12 04/06/22 08:11 BP 128/107 04/06/22 08:11 Pulse Ox 100 04/06/22 08:11 O2 Del Method 04/06/22 07:38 O2 Flow Rate 3 04/06/22 07:38 FiO2 30 04/04/22 23:10 04/05/22 04/06/22 04/06/22 22:59 06:59 14:59 Intake Total 600 / 1560 120 / 1680 240 / 240 Output Total 600 / 600 450 / 1050 Balance 0 / 960 -330 / 630 240 / 240 Physical Exam Narrative: Patient is doing semi-[place] position on 3 L No active anxiety Hemodynamic stable No signs of A. fib RVR Variable S1-S2 Edema of legs improving however still present Skin wrinkling present Data 04/05/22 02:20 04/05/22 02:20 Micro: Microbiology 03/31/22 18:50 Blood Culture - Final Blood NO GROWTH AFTER 5 DAYS 03/31/22 18:46 Blood Culture - Final Blood NO GROWTH AFTER 5 DAYS A&P Assessment and plan (1) Cardiomyopathy: (2) Previous back surgery: (3) New onset of congestive heart failure: (4) Acute on chronic congestive heart failure: (5) Hypoxemia: (6) Atrial fibrillation: (7) Atrial fibrillation with RVR: Plan Patient to work with PT Whether she is safe return home versus rehab LifeVest to be arranged Patient is very anxious Not sure whether she will tolerate LifeVest alarms She will need optimization of her antihypertensive regimen as well, ideally she will need Entresto non Ischemic cardiomyopathy Follow-up with Dr. Catarino De La Vega. fib without RVR currently on amiodarone and metoprolol We will follow-up with Dr. Santoro's recommendation today I have continued her on Bumex and potassium supplement for now She needs anxiolytics as well TAMMIE related to cardiorenal syndrome anticipating improvement with diuresis BMP is pending from today Acute hypoxia related to CHF exacerbation currently on 3 L Attestations Medical Necessity Statement*: Will need PT evaluation Time Spent in Patient Care: 30 Coding Level of Care Code Acute Code for Chg Fwd Diagnoses Cardiomyopathy I42.9 Previous back surgery Z98.890 New onset of congestive heart failure I50.9 Acute on chronic congestive heart failure I50.9 Hypoxemia R09.02 Atrial fibrillation I48.91 Atrial fibrillation with RVR I48.91
--- NOTE | 2022-04-06 11:28 | PM.PN ---
Subjective Subjective: Daina is a 1 has a history of atrial fibrillation. She was admitted on the eighth with heart failure, volume overload and was found to have an ejection fraction of 20%. Cardiac catheterization ultimately revealed normal coronary arteries with a pulmonary artery pressure of 53 mmHg. She also has chronic kidney disease and super morbid obesity. She is being treated medically. She is not able to properly respond to a LifeVest and so this has not been placed. She remains on BiPAP with respiratory distress. Vitals/I&O/Wt Last Vital Signs Temp 98.3 F 04/05/22 15:20 Pulse 100 04/06/22 10:11 Resp 12 04/06/22 08:11 BP 128/107 04/06/22 08:11 Pulse Ox 97 04/06/22 10:11 O2 Del Method 04/06/22 07:38 O2 Flow Rate 3 04/06/22 07:38 FiO2 30 04/06/22 10:11 04/05/22 04/06/22 04/06/22 22:59 06:59 14:59 Intake Total 600 / 1560 120 / 1680 240 / 240 Output Total 600 / 600 450 / 1050 Balance 0 / 960 -330 / 630 240 / 240 Physical Exam Narrative: GENERAL: In general she seems uncomfortable and is struggling somewhat to breathe on BiPAP. HEENT: Exam within normal limits. NECK: Supple without jugular vein distention. The carotid upstroke is normal without bruits. BACK: Exam normal. LUNGS: Clear. HEART: Regular rate and rhythm. ABDOMEN: Benign without organomegaly or tenderness. EXTREMITIES: No edema. NEUROLOGIC: Exam normal. SKIN: Unremarkable. Data 04/05/22 02:20 04/05/22 02:20 Micro: Microbiology 03/31/22 18:50 Blood Culture - Final Blood NO GROWTH AFTER 5 DAYS 03/31/22 18:46 Blood Culture - Final Blood NO GROWTH AFTER 5 DAYS A&P Assessment and plan (1) Atrial fibrillation: (2) Hypoxemia: (3) Atrial fibrillation with RVR: (4) Acute on chronic congestive heart failure: (5) New onset of congestive heart failure: (6) Cardiomyopathy: (7) Pulmonary HTN: Plan Diuresis as planned. She remains in atrial fibrillation but the heart rate is controlled. She is being loaded with amiodarone. She is on a beta-kajal and a loop diuretic with potassium. No changes today. Attestations Medical Necessity Statement*: Continued position required for management of respiratory failure and cardiomyopathy. Coding Level of Care Code Acute Code for Chg Fwd History Detailed Exam Detailed Medical Decision Making Moderate Complexity Diagnoses Atrial fibrillation I48.91 Hypoxemia R09.02 Atrial fibrillation with RVR I48.91 Acute on chronic congestive heart failure I50.9 New onset of congestive heart failure I50.9 Cardiomyopathy I42.9 Pulmonary HTN I27.20
--- NOTE | 2022-04-06 21:17 | XRR_ITS ---
PROCEDURE INFORMATION: Exam: XR Chest Exam date and time: 04/06/2022 9:51 PM Age: 61 years old Clinical indication: Shortness of breath; Additional info: SOB TECHNIQUE: Imaging protocol: Radiologic exam of the chest. Views: 1 view. COMPARISON: CR XR chest 1V portable [id number] 04/05/2022 8:25 AM FINDINGS: Lungs: Reduced lung volumes. Negative for pulmonary consolidation. No significant vascular dilation. Some prominence of interstitial lung markings bilaterally. Pleural spaces: Unremarkable. No pleural effusion. No pneumothorax. Heart/Mediastinum: Moderate cardiac enlargement. Bones/joints: Unremarkable. XR/XR chest 1V portable [id number] IMPRESSION: Negative for focal acute pulmonary disease. Possible mild interstitial edema.
--- NOTE | 2022-04-06 21:25 | PC.NURSE ---
Messaged regarding patients BP unable to obtain. Multiple attempts with doppler BP 89/0. Patients continues to complain of SOB, which is not new, 02 SAT 97% on 2L. Asked DR Grajeda to come see the patient. saw patient and asked nurse to put in trendelenburg position and reattempt BP. He also ordered chest xray and labs, NIH scale, hold metoprolol for now.
[2022-04-06 22:32] LABS: Basophils # 0.1 10^3/uL (0.0-0.1); Basophils % 0.8 %; Eosinophils % 0.3 %; Hematocrit 50.6 % (37.0-47.0); Hemoglobin 15.2 g/dL (11.5-15.3); Lymphocytes # 0.6 10^3/uL (0.8-4.8); Lymphocytes % 8.6 %; Mean Corpuscular Hemoglobin 28.5 pg (28.0-34.0); Mean Corpuscular Volume 94.9 fl (81-99); Mean Platelet Volume 11.2 fL (7.4-10.4); Monocytes # 0.5 10^3/uL (0.2-0.9); Monocytes % 8.3 %; Neutrophils # 5.27 10^3/uL (1.8-7.7); Neutrophils % 81.1 %; Nucleated Red Blood Cells # 0.1 /100WBC; Nucleated Red Blood Cells % 1.7 %; Platelet Count 370 10^3/cmm (130-400); Red Blood Count 5.33 10^6/uL (4.1-5.3); Red Cell Distribution Width 17.1 % (12.1-15.1); White Blood Count 6.5 10^3/uL (4.0-10.0)
[2022-04-06 23:25] LABS: Lactate (Lactic Acid level) 6.9 mmol/L (0.5-2.2)
[2022-04-07] VITALS (66 sets, daily range): BP systolic 89–144; BP diastolic 0–110; PULSE 89–120; RESP 10–41; TEMP 36.7–37.2; O2SAT 85–100
--- NOTE | 2022-04-07 | PM.CCNAC ---
Critical Care Event Note The high probability of a clinically significant, sudden or life threatening deterioration of the patient's [] system(s) required my full and direct attention, intervention and personal management. The critical care time is as shown. This time is in addition to time spent performing any reported procedures but includes the following: [x] Data and vital sign review and interpretation [x] Patient assessment, examination and intervention [x] Documentation [x] Medication orders and management Critical Care Time Code activated: No Critical Care Time (min): 35 Additional information about critical care time: Patient was seen multiple times throughout the night, and evening I was paged by nursing staff as they could not take her blood pressure from the patient Patient was seen, she is alert and oriented x2, following commands, on BiPAP, complaining of shortness of breath, no lightheadedness, dizziness, chest pain, palpitations She had just returned from [employer] received metoprolol, also received anxiety medication Telemetry monitoring shows A. fib, heart rates are in the low 100s, Sure urine output has declined blood work was ordered, ABG was ordered After speaking with nursing staff, they were able to get Doppler pressures, but were not able to get any blood pressure on manual check She continues to complain of shortness of breath, has diffuse peripheral edema, 1+, lactic acid came back at 6.9, creatinine 1.7 ABG does not show any profound hypercarbia hypoxia However its difficult to get a blood pressure manually, thus patient was moved over to ICU metoprolol so far will be held, Patient was moved over to ICU, spoke to nursing staff they are able to get a blood pressure, blood pressure 100s over 60s, midodrine was held continue BiPAP therapy, will monitor in ICU overnight BNP is over 1200 so I will continue diuretics, Discussed the plan with patient as she worsening in terms of respiratory status, kidney function, low blood pressures, would be to proceed, advised to continue BiPAP therapy, Low lactic acid could be from cardiac hypoperfusion, EF of 20 to 25% Coding Level of Care Code Acute Code for Chg Fwd
[2022-04-07 00:25] LABS: NT Pro B Type Natriuretic Pept 12399 pg/mL (0-125); Procalcitonin 0.24 ng/mL (0-0.5); Thyroid Stimulating Hormone 3.73 uIU/mL (0.27-4.20)
[2022-04-07 00:26] LABS: ABG PCO2 30.1 mmHg (35-45); Arterial Blood Gas Hematocrit 44.5 % (37-47); Blood Gas Allen Test Pos; Blood Gas Operator Identificat JB; Blood Gas Sample Site Radial, right; Blood Gas Sample Type Arterial; HCO3 ABG 18.6 mmol/L (22-26); Oxygen Device BIPAP; PO2 ABG 84.9 mmHg (80.0-100.0)
[2022-04-07 00:36] LABS: Alanine Aminotransferase 225 U/L (0-33); Albumin Level 3.2 g/dL (3.5-5.2); Alkaline Phosphatase 97 U/L (35-105); Blood Urea Nitrogen 50 mg/dL (8-23); C Reactive Protein 22.2 mg/L (0.0-4.9); Calcium 8.5 mg/dL (8.5-10.5); Carbon Dioxide 16 mmol/L (22-29); Chloride 99 mmol/L (98-107); Globulin 2.6 g/dL (1.3-4.6); Glomerular Filtration Rate 30.4 mL/min (90-130); Glucose 132 mg/dL (65-115); Magnesium 2.5 mg/dL (1.7-2.3); Osmolality Calculated 291 mOsm/kg (285-295); Sodium 133 mmol/L (136-145); Total Protein 5.8 g/dL (6.6-8.7)
[2022-04-07 00:40] LABS: Anion Gap 23.6 (5-19); Aspartate Amino Transferase 212 U/L (0-32); Potassium 5.6 mmol/L (3.5-5.1)
--- NOTE | 2022-04-07 01:00 | PC.NURSE ---
informed nurse of plan to transfer patient to ICU. Called and report was given to Janeth RN in ICU. Patient was transfered with all belongings, on BIPAP, and with chart to ICU 6.
--- NOTE | 2022-04-07 01:04 | PC.NURSE ---
Patient to ICU 6 from [facility]. Patient currently on bipap with RR 35 and abd breathing. Unable to get external temp. Rectal temp 98.6. Patient in A.fib HR 97. BP 118/99. Dr. Grajeda updated on patient condition and labs. Telephone order received to hold NS bolus and Midodrine.
[2022-04-07] MEDS: HYDROcodone-acetaminophen 5-325 mg Tablet 1 TAB PO ×3 (05:44→19:00)
[2022-04-07] MEDS: sennosides-docusate Tablet 1 TAB PO (08:43)
[2022-04-07] MEDS: apixaban 5 mg Tablet 2.5 MG PO ×2 (08:43→20:03)
[2022-04-07] MEDS: bumetanide 1 mg Tablet PO (08:43)
[2022-04-07] MEDS: amiodarone 200 mg Tablet 400 MG PO ×2 (08:43→17:04)
--- NOTE | 2022-04-07 08:57 | P.PN_ITS ---
Subjective Subjective: Daina was transferred to the ICU last night about midnight. I am not sure exactly why but it sounds like she may have been hypotensive and they were unable to get her blood pressure. This information is from the nurses because there is not a note in the chart. Her potassium was a little high and her lactate is 6.9. Other labs are relatively unremarkable. This morning she is much less short of breath than she was yesterday. The BiPAP is not on this morning. She is on nasal prongs. She is sitting up eating breakfast. Today her blood pressure is normal. Vitals/I&O/Wt Last Vital Signs Temp 99.0 F 04/07/22 04:45 Pulse 104 H 04/07/22 08:40 Resp 20 H 04/07/22 08:40 BP 89/69 04/07/22 08:30 Pulse Ox 99 04/07/22 08:40 O2 Del Method 04/07/22 08:40 O2 Flow Rate 3 04/07/22 08:40 FiO2 30 04/07/22 04:15 04/06/22 04/07/22 04/07/22 22:59 06:59 14:59 Intake Total 600 / 840 480 / 1320 300 / 300 Output Total 800 / 800 400 / 1200 Balance -200 / 40 80 / 120 300 / 300 Weight last 48 hrs Weight 356 lb 9 oz Physical Exam Narrative: GENERAL: In general she looks and feels well this morning. Not short of breath. Blood pressure is normal. HEENT: Exam within normal limits. NECK: Supple without jugular vein distention. The carotid upstroke is normal without bruits. BACK: Exam normal. LUNGS: Clear. HEART: Regular rate and rhythm. ABDOMEN: Benign without organomegaly or tenderness. EXTREMITIES: No edema. NEUROLOGIC: Exam normal. SKIN: Unremarkable. Data 04/06/22 22:19 04/06/22 23:30 A&P Assessment and plan (1) Pulmonary HTN: (2) Cardiomyopathy: (3) New onset of congestive heart failure: (4) Acute on chronic congestive heart failure: (5) Atrial fibrillation with RVR: (6) Hypoxemia: (7) Atrial fibrillation: Plan No change. I think she may have been a little over diuresed if indeed her blood pressure was low. She is much improved today. She could probably go back to the first floor. Attestations Medical Necessity Statement*: Continued hospitalization for management of pulm onary hypertension, nonischemic cardiomyopathy. Coding Level of Care Code Established Pt Acute Code for Chg Fwd Patient Type Established History Comprehensive Exam Comprehensive Medical Decision Making High Complexity Diagnoses Pulmonary HTN I27.20 Cardiomyopathy I42.9 New onset of congestive heart failure I50.9 Acute on chronic congestive heart failure I50.9 Atrial fibrillation with RVR I48.91 Hypoxemia R09.02 Atrial fibrillation I48.91
--- NOTE | 2022-04-07 10:51 | PC.SOCIAL ---
IMM Update pg 2 of IMM updated and reviewed w/ patient. Copy provided and copy dated, initialed and placed in chart.
--- NOTE | 2022-04-07 11:36 | P.PN_ITS ---
Subjective Subjective: Overnight events noted Meal Attendant has written a critical progress note This morning patient is remarkably doing well not short of breath doing well on 2 L nasal cannula patient is endorsing feeling better as well she is much more energetic and less lethargic She never required any vasopressors, she was given IV fluids overnight Creatinine is worsening today it is 1.7 Discontinue potassium supplement, Give her a day off from diuretic Vitals/I&O/Wt Last Vital Signs Temp 99.0 F 04/07/22 04:45 Pulse 98 04/07/22 10:30 Resp 25 H 04/07/22 10:30 BP 105/76 04/07/22 10:30 Pulse Ox 98 04/07/22 10:30 O2 Del Method 04/07/22 09:14 O2 Flow Rate 2 04/07/22 09:14 FiO2 30 04/07/22 04:15 04/06/22 04/07/22 04/07/22 22:59 06:59 14:59 Intake Total 600 / 840 480 / 1320 300 / 300 Output Total 800 / 800 400 / 1200 Balance -200 / 40 80 / 120 300 / 300 Weight last 48 hrs Weight 161.734 kg Physical Exam Narrative: Awake and alert Signs of fluid overload improving Wrinkling of skin noted Currently on 2 L nasal cannula Retroperitoneal without any critical Variable S1-S2 Awake and alert much more energetic as compared to yesterday No abdominal pain Patient is pleasant and cooperative Data 04/06/22 22:19 04/06/22 23:30 A&P Assessment and plan (1) Pulmonary HTN: (2) Cardiomyopathy: (3) Previous back surgery: (4) New onset of congestive heart failure: (5) Acute on chronic congestive heart failure: (6) Atrial fibrillation with RVR: (7) Hypoxemia: (8) Atrial fibrillation: (9) Hyperkalemia: (10) TAMMIE (acute kidney injury): (11) Nocturnal hypoxemia: Plan 61-year female who was admitted for sinus symptoms related to CHF, new onset, A. fib RVR she was seen by animal cytologist as well, because of low blood pressure we have switched her to amiodarone and metoprolol however because of continued CHF exacerbation Toprol was held 04/07, when she became hypotensive and got transferred from [facility] to ICU and improved with IV fluids, she is remarkably doing well on 04/07 on 2 L nasal cannula otherwise she has been requiring BiPAP on and off and almost every night, coronary angiogram is unremarkable she has nonischemic cardiomyopathy, we requested LifeVest however she is very anxious and would not tolerate any alarms on her body hence LifeVest order has been canceled Patient lives with her ex-, he has not visited her in the hospital I have not been able to get in touch with him as well She is full code She has pulmonary hypertension, will need pulmonary hypertension referral at the time of discharge which will be at [place] For now we are managing her CHF exacerbation, she might need rehab, PT evaluation is pending Acute systolic CHF exacerbation Signs of overdiuresis Creatinine worsened Patient became hypotensive Patient did well with IV fluid hydration overnight We will give her a break from diuretics on Friday Discontinue potassium and Bumex She was getting IV Lasix every 12 hours until 04/06 Nonischemic cardiomyopathy Did not tolerate LifeVest Fatigue and lethargy could be related to opioids and Xanax she got on 04/06 that caused hypotension Her hypotension because of high Actiq acidemia, repeat lactic acid this morning Blood pressure is stable She never required vasopressors In case of further worsening of creatinine she might benefit from dobutamine and diuretic combination Patient has nocturnal hypoxemia Most likely etiology of underlying nonischemic cardiomyopathy is untreated sleep apnea Sleep study outpatient referral will be needed Acute COPD exacerbation related to CHF currently on 2 L nasal cannula Will need home O2 eval before discharge TAMMIE related to cardiorenal Might have been over diuresed We will give her a break from diuretics on Friday She can be transferred to [facility] Cardiac diet DVT prophylaxis change Eliquis dose because of worsening creatinine to 2.5 mg twice a day She would not tolerate Entresto because of hypotension and high creatinine which Dr. Toribio was planning outpatient Attestations Medical Necessity Statement*: Awaiting PT evaluation they will decide her disposition Time Spent in Patient Care: 30 Coding Level of Care Code Acute Code for [facility] Diagnoses Pulmonary HTN I27.20 Cardiomyopathy I42.9 Previous back surgery Z98.890 New onset of congestive heart failure I50.9 Acute on chronic congestive heart failure I50.9 Atrial fibrillation with RVR I48.91 Hypoxemia R09.02 Atrial fibrillation I48.91 Hyperkalemia E87.5 TAMMIE (acute kidney injury) N17.9 Nocturnal hypoxemia G47.34
[2022-04-07] MEDS: sodium chloride 0.9% 1,000 ML 75 ML IV (12:09)
[2022-04-07] MEDS: ALPRAZolam 0.5 mg Tablet 0.25 MG PO (13:14)
[2022-04-07 13:25] LABS: Anion Gap 15.9 (5-19); Blood Urea Nitrogen 53 mg/dL (8-23); Calcium 9.3 mg/dL (8.5-10.5); Carbon Dioxide 22 mmol/L (22-29); Chloride 98 mmol/L (98-107); Glomerular Filtration Rate 35.1 mL/min (90-130); Glucose 143 mg/dL (65-115); Osmolality Calculated 289 mOsm/kg (285-295); Potassium 4.9 mmol/L (3.5-5.1); Sodium 131 mmol/L (136-145)
[2022-04-07 13:26] LABS: Lactate (Lactic Acid level) 3.2 mmol/L (0.5-2.2)
[2022-04-08] VITALS (48 sets, daily range): BP systolic 91–153; BP diastolic 60–103; PULSE 95–126; RESP 9–58; TEMP 36.4–36.8; O2SAT 89–100; BMI 48.4
[2022-04-08] MEDS: HYDROcodone-acetaminophen 5-325 mg Tablet 1 TAB PO ×4 (00:27→21:26)
[2022-04-08] MEDS: ALPRAZolam 0.5 mg Tablet 0.25 MG PO (04:51)
[2022-04-08 05:29] LABS: Basophils # 0.1 10^3/uL (0.0-0.1); Basophils % 1.2 %; Eosinophils # 0.1 10^3/uL (0.0-0.8); Eosinophils % 2.1 %; Hematocrit 43.8 % (37.0-47.0); Hemoglobin 13.2 g/dL (11.5-15.3); Lymphocytes # 1.1 10^3/uL (0.8-4.8); Lymphocytes % 16.7 %; Mean Corpuscular HGB Conc 30.1 g/dL (30.0-36.0); Mean Corpuscular Hemoglobin 28.2 pg (28.0-34.0); Mean Corpuscular Volume 93.6 fl (81-99); Mean Platelet Volume 10.4 fL (7.4-10.4); Monocytes % 14.1 %; Neutrophils # 4.43 10^3/uL (1.8-7.7); Neutrophils % 65.5 %; Nucleated Red Blood Cells # 0.1 /100WBC; Nucleated Red Blood Cells % 1.5 %; Platelet Count 353 10^3/cmm (130-400); Red Blood Count 4.68 10^6/uL (4.1-5.3); Red Cell Distribution Width 16.7 % (12.1-15.1); White Blood Count 6.8 10^3/uL (4.0-10.0)
[2022-04-08 05:50] LABS: Blood Urea Nitrogen 54 mg/dL (8-23); Calcium 9.3 mg/dL (8.5-10.5); Carbon Dioxide 25 mmol/L (22-29); Chloride 98 mmol/L (98-107); Glomerular Filtration Rate 32.6 mL/min (90-130); Glucose 116 mg/dL (65-115); Magnesium 2.4 mg/dL (1.7-2.3); Osmolality Calculated 288 mOsm/kg (285-295); Sodium 131 mmol/L (136-145)
[2022-04-08 06:00] LABS: Potassium 4.5 mmol/L (3.5-5.1)
[2022-04-08 06:01] LABS: Anion Gap 12.5 (5-19)
[2022-04-08] MEDS: amiodarone 200 mg Tablet 400 MG PO ×2 (08:05→17:00)
[2022-04-08] MEDS: sennosides-docusate Tablet 1 TAB PO (08:05)
--- NOTE | 2022-04-08 08:29 | P.PN_ITS ---
Subjective Subjective: Patient still has afib with RVR. Blood pressure is stable.She denies chest pain. Vitals/I&O/Wt Last Vital Signs Temp 97.6 F 04/08/22 04:00 Pulse 103 H 04/08/22 06:00 Resp 10 L 04/08/22 06:00 BP 121/92 04/08/22 05:00 Pulse Ox 98 04/08/22 06:00 O2 Del Method 04/08/22 04:00 O2 Flow Rate 2 04/07/22 13:45 FiO2 30 04/08/22 03:14 04/07/22 04/08/22 04/08/22 22:59 06:59 14:59 Intake Total 1035.75 / 1685.75 240 / 1925.75 Output Total 600 / 600 Balance 1035.75 / 1685.75 -360 / 1325.75 Weight last 48 hrs Weight 357 lb Weight 356 lb 9 oz Physical Exam Narrative: GENERAL: Alert and oriented, comfortable on BiPAP HEENT: Exam within normal limits. LUNGS: Dimished breathing sounds HEART: Tachycardic, irregularly irregular. EXTREMITIES: 1+ edema NEUROLOGIC: Grossly normal SKIN: Unremarkable. Urinary Catheter Management: Rodriguez: Cath Placed During This Visit: no Reason for Continuing Indwelling Catheter: Accurate Measurement of Urinary Outpu t in Critically Ill Patients Data 04/08/22 04:18 04/08/22 04:18 A&P Assessment and plan (1) Pulmonary HTN: (2) Cardiomyopathy: (3) New onset of congestive heart failure: (4) Acute on chronic congestive heart failure: (5) Atrial fibrillation with RVR: (6) Hypoxemia: (7) Atrial fibrillation: Plan Patient is stable. We will resume metoprolol 25mg BID today. Continue amiodarone Continue PO Bumex Thank you for involving us with care of this patient.We will continue to follow. Please call with questions Attestations Medical Necessity Statement*: Care expected to cross 2 midnights. Coding Level of Care Code Acute Code for [facility] Fwd Diagnoses Pulmonary HTN I27.20 Cardiomyopathy I42.9 New onset of congestive heart failure I50.9 Acute on chronic congestive heart failure I50.9 Atrial fibrillation with RVR I48.91 Hypoxemia R09.02 Atrial fibrillation I48.91
[2022-04-08] MEDS: ipratropium-albuterol 3 mL Neb INHALATION (08:50)
[2022-04-08] MEDS: metoprolol tartrate 25 mg Tablet PO ×2 (09:14→21:26)
--- NOTE | 2022-04-08 12:35 | PM.PN ---
Subjective Subjective: seen this AM overnight events noted She says she feels the same as yesterday today. She says they were finally able to get her blood pressure after she came to the ICU last night. She is not too sure what may have happened. She is waiting to see cardiology today Vitals/I&O/Wt Last Vital Signs Temp 97.6 F 04/08/22 04:00 Pulse 108 H 04/08/22 11:30 Resp 28 H 04/08/22 11:30 BP 153/103 04/08/22 11:00 Pulse Ox 97 04/08/22 11:30 O2 Del Method 04/08/22 08:50 O2 Flow Rate 30 04/08/22 08:50 FiO2 30 04/08/22 08:53 04/07/22 04/08/22 04/08/22 22:59 06:59 14:59 Intake Total 1035.75 / 1685.75 240 / 1925.75 350 / 350 Output Total 600 / 600 Balance 1035.75 / 1685.75 -360 / 1325.75 350 / 350 Weight last 48 hrs Weight 161.932 kg Weight 161.734 kg Physical Exam Narrative: GENERAL: Alert and oriented, on room air HEENT: Exam within normal limits. LUNGS: Dimished breathing sounds HEART: Tachycardic, irregularly irregular. EXTREMITIES: 1+ edema NEUROLOGIC: Grossly normal SKIN: Unremarkable. Urinary Catheter Management: Rodriguez: Cath Placed During This Visit: no Reason for Continuing Indwelling Catheter: Accurate Measurement of Urinary Output in Critically Ill Patients Data 04/08/22 04:18 04/08/22 04:18 A&P Assessment and plan (1) Pulmonary HTN: (2) Cardiomyopathy: (3) Previous back surgery: (4) New onset of congestive heart failure: (5) Acute on chronic congestive heart failure: (6) Atrial fibrillation with RVR: (7) Hypoxemia: (8) Atrial fibrillation: (9) Hyperkalemia: (10) TAMMIE (acute kidney injury): (11) Nocturnal hypoxemia: Plan 61-year female who was admitted for sinus symptoms related to CHF, new onset, A. fib RVR she was seen by lap checker as well, because of low blood pressure we have switched her to amiodarone and metoprolol however because of continued CHF exacerbation Toprol was held 04/07, when she became hypotensive and got transferred from [facility] to ICU and improved with IV fluids, she is remarkably doing well on 04/07 on 2 L nasal cannula otherwise she has been requiring BiPAP on and off and almost every night, coronary angiogram is unremarkable she has nonischemic cardiomyopathy, we requested LifeVest however she is very anxious and would not tolerate any alarms on her body hence LifeVest order has been canceled Patient lives with her ex-, he has not visited her in the hospital I have not been able to get in touch with him as well She is full code She has pulmonary hypertension, will need pulmonary hypertension referral at the time of discharge which will be at [place] For now we are managing her CHF exacerbation, she might need rehab, PT evaluation is pending Acute systolic CHF exacerbation Signs of overdiuresis Creatinine worsened Patient became hypotensive Patient did well with IV fluid hydration overnight Hold diuretics today Nonischemic cardiomyopathy Did not tolerate LifeVest Restart beta kajal today. Still not rate controlled 04/06-04/07 Lactic acid is improved from 6.0-3.2. Fatigue and lethargy could be related to opioids and Xanax she got on 04/06 that caused hypotension Her hypotension because of high Actiq acidemia, repeat lactic acid this morning Blood pressure is stable She never required vasopressors In case of further worsening of creatinine she might benefit from dobutamine and diuretic combination. Now stable. Patient has nocturnal hypoxemia Most likely etiology of underlying nonischemic cardiomyopathy is untreated sleep apnea Sleep study outpatient referral will be needed Acute COPD exacerbation related to CHF currently on 2 L nasal cannula Will need home O2 eval before discharge TAMMIE related to cardiorenal Might have been over diuresed We will give her a break from diuretics on Friday She can be transferred to [facility] Cardiac diet DVT prophylaxis change Eliquis dose because of worsening creatinine to 2.5 mg twice a day She would not tolerate Entresto because of hypotension and high creatinine which Dr. Toribio was planning outpatient May possibly transfer to CSU today. Attestations Medical Necessity Statement*: Continue current medical management. Coding Level of Care Code Acute Code for [facility] Fwd Diagnoses Pulmonary HTN I27.20 Cardiomyopathy I42.9 Previous back surgery Z98.890 New onset of congestive heart failure I50.9 Acute on chronic congestive heart failure I50.9 Atrial fibrillation with RVR I48.91 Hypoxemia R09.02 Atrial fibrillation I48.91 Hyperkalemia E87.5 TAMMIE (acute kidney injury) N17.9 Nocturnal hypoxemia G47.34
[2022-04-09] VITALS (8 sets, daily range): BP systolic 88–106; BP diastolic 68–76; PULSE 94–113; RESP 15–22; TEMP 36.3–36.7; O2SAT 95–99
[2022-04-09] MEDS: HYDROcodone-acetaminophen 5-325 mg Tablet 1 TAB PO ×3 (03:53→13:55)
--- NOTE | 2022-04-09 08:25 | PM.PN ---
Subjective Subjective: Patient is still short of breath Vitals/I&O/Wt Last Vital Signs Temp 98.1 F 04/09/22 08:00 Pulse 104 H 04/09/22 08:00 Resp 15 04/09/22 08:00 BP 106/73 04/09/22 08:00 Pulse Ox 95 04/09/22 08:00 O2 Del Method 04/09/22 08:00 O2 Flow Rate 3.5 04/09/22 03:41 FiO2 30 04/08/22 22:55 04/08/22 04/09/22 04/09/22 22:59 06:59 14:59 Output Total 950 / 950 150 / 1100 Balance -950 / -250 -150 / -400 Weight last 48 hrs Weight 372 lb 4 oz Weight 357 lb Physical Exam Narrative: GENERAL: Alert and oriented HEENT: Exam within normal limits. LUNGS: Dimished breathing sounds HEART: Tachycardic, irregularly irregular. EXTREMITIES: 1+ edema NEUROLOGIC: Grossly normal SKIN: Unremarkable. Urinary Catheter Management: Rodriguez: Cath Placed During This Visit: no Reason for Continuing Indwelling Catheter: Accurate Measurement of Urinary Output in Critically Ill Patients Data 04/08/22 04:18 04/08/22 04:18 A&P Assessment and plan (1) Pulmonary HTN: (2) Cardiomyopathy: (3) New onset of congestive heart failure: (4) Acute on chronic congestive heart failure: (5) Atrial fibrillation with RVR: (6) Hypoxemia: (7) Atrial fibrillation: Plan Patient is stable. Continue amiodarone and metoprolol Will benefit from starting IV duretics again. Thank you for involving us with care of this patient.We will continue to follow. Please call with questions Attestations Medical Necessity Statement*: Care expected to cross 2 midnights. Coding Level of Care Code Acute Code for [facility] Diagnoses Pulmonary HTN I27.20 Cardiomyopathy I42.9 New onset of congestive heart failure I50.9 Acute on chronic congestive heart failure I50.9 Atrial fibrillation with RVR I48.91 Hypoxemia R09.02 Atrial fibrillation I48.91
[2022-04-09] MEDS: amiodarone 200 mg Tablet 400 MG PO ×2 (09:10→17:31)
[2022-04-09] MEDS: metoprolol tartrate 25 mg Tablet PO ×2 (09:10→21:15)
[2022-04-09] MEDS: sennosides-docusate Tablet 1 TAB PO (09:10)
--- NOTE | 2022-04-09 15:11 | PM.PN ---
Subjective Subjective: seen this am laying in bed on bipap desai catheter in place says she doesnt feel much improved and is wondering what is going on with her HR is controlled on lopressor added yesterday Vitals/I&O/Wt Last Vital Signs Temp 97.4 F L 04/09/22 14:00 Pulse 96 04/09/22 14:00 Resp 20 H 04/09/22 14:00 BP 106/73 04/09/22 08:00 Pulse Ox 99 04/09/22 14:00 O2 Del Method 04/09/22 14:00 O2 Flow Rate 3.5 04/09/22 03:41 FiO2 30 04/08/22 22:55 04/09/22 04/09/22 04/09/22 06:59 14:59 22:59 Intake Total 120 / 120 Output Total 150 / 1100 Balance -150 / -400 120 / 120 Weight last 48 hrs Weight 168.85 kg Weight 161.932 kg Physical Exam Narrative: GENERAL: Alert and oriented, on room air HEENT: Exam within normal limits. LUNGS: Diminished breathing sounds HEART: rate controlled, irregularly irregular., normal s1, s2, muffled heart sounds due to body habitus EXTREMITIES: 1+ edema NEUROLOGIC: Grossly normal Urinary Catheter Management: Desai: Cath Placed During This Visit: no Reason for Continuing Indwelling Catheter: Accurate Measurement of Urinary Output in Critically Ill Patients Data 04/08/22 04:18 04/08/22 04:18 A&P Assessment and plan (1) Pulmonary HTN: (2) Cardiomyopathy: (3) Previous back surgery: (4) New onset of congestive heart failure: (5) Acute on chronic congestive heart failure: (6) Atrial fibrillation with RVR: (7) Hypoxemia: (8) Atrial fibrillation: (9) Hyperkalemia: (10) TAMMIE (acute kidney injury): (11) Nocturnal hypoxemia: Plan 61-year female who was admitted for sinus symptoms related to CHF, new onset, A. fib RVR she was seen by [employer] as well, because of low blood pressure we have switched her to amiodarone and metoprolol however because of continued CHF exacerbation Toprol was held 04/07, when she became hypotensive and got transferred from [facility] to ICU and improved with IV fluids, she is remarkably doing well on 04/07 on 2 L nasal cannula otherwise she has been requiring BiPAP on and off and almost every night, coronary angiogram is unremarkable she has nonischemic cardiomyopathy, we requested LifeVest however she is very anxious and would not tolerate any alarms on her body hence LifeVest order has been canceled Patient lives with her ex-, he has not visited her in the hospital I have not been able to get in touch with him as well She is full code She has pulmonary hypertension, will need pulmonary hypertension referral at the time of discharge which will be at [place] For now we are managing her CHF exacerbation, she might need rehab, PT evaluation is pending Acute systolic CHF exacerbation Signs of overdiuresis Creatinine worsened Patient became hypotensive Patient did well with IV fluid hydration overnight Hold diuretics today Nonischemic cardiomyopathy Did not tolerate LifeVest Continue lopressor Labs from today are pending Remove desai catheter and being voiding trial 04/06-04/07 Lactic acid is improved from 6.0-3.2. Fatigue and lethargy could be related to opioids and Xanax she got on 04/06 that caused hypotension Her hypotension because of high Actiq acidemia, repeat lactic acid this morning Blood pressure is stable She never required vasopressors In case of further worsening of creatinine she might benefit from dobutamine and diuretic combination. Now stable. Patient has nocturnal hypoxemia Most likely etiology of underlying nonischemic cardiomyopathy is untreated sleep apnea Sleep study outpatient referral will be needed Acute COPD exacerbation related to CHF currently on 2 L nasal cannula Will need home O2 eval before discharge TAMMIE related to cardiorenal Might have been over diuresed Restart bumex oral daily. She can be transferred to CSU Cardiac diet DVT prophylaxis change Eliquis dose because of worsening creatinine to 2.5 mg twice a day She would not tolerate Entresto because of hypotension and high creatinine which Dr. Toribio was planning outpatient Pending placement Attestations Medical Necessity Statement*: Pending placement Coding Level of Care Code Acute Code for g Fwd Diagnoses Pulmonary HTN I27.20 Cardiomyopathy I42.9 Previous back surgery Z98.890 New onset of congestive heart failure I50.9 Acute on chronic congestive heart failure I50.9 Atrial fibrillation with RVR I48.91 Hypoxemia R09.02 Atrial fibrillation I48.91 Hyperkalemia E87.5 TAMMIE (acute kidney injury) N17.9 Nocturnal hypoxemia G47.34
[2022-04-09] MEDS: ALPRAZolam 0.5 mg Tablet 0.25 MG PO (15:54)
--- NOTE | 2022-04-09 23:27 | ECG_ITS ---
[facility] Test Date: 2022-04-10 Pat Name: Daina Lancaster Department: Room: 258 Gender: Female Collect On Delivery Clerk: : 1960 Requested By: Tigre Grajeda Order Number: [id number] Kaleb MD: Malinda Montoya M.D. Measurements Intervals [place] Rate: 110 P: 0 GA: 0 QRS: 148 QRSD: 166 T: 48 QT: 366 QTc: 496 Interpretive Statements ATRIAL FIBRILLATION WITH RAPID VENTRICULAR RESPONSE INTRAVENTRICULAR CONDUCTION DELAY [130+ ms QRS DURATION] Compared to ECG 03/31/2022 18:39:20 Right-axis deviation no longer present Electronically Signed On 04-10-2022 6:53:53 COMPUTER FORWARDING SYSTEM MARKUP CLERK by Malinda Montoya M.D. [id number]
--- NOTE | 2022-04-09 23:27 | XRR_ITS ---
PROCEDURE INFORMATION: Exam: XR Chest Exam date and time: 04/10/2022 1:50 AM Age: 61 years old Clinical indication: Shortness of breath; Patient HX: Worsening SOB. On bipap. TECHNIQUE: Imaging protocol: Radiologic exam of the chest. Views: 1 view. COMPARISON: CR (CHEST, ) 04/06/2022 9:51 PM FINDINGS: Lungs: Mild COPD. Lungs are clear otherwise. Pleural spaces: Unremarkable. No pleural effusion. No pneumothorax. Heart/Mediastinum: The heart remains quite large with diffuse vascular calcification. Bones/joints: Unremarkable. XR/XR chest 1V portable [id number] IMPRESSION: Stable chest with no acute process or significant change from 4 days ago.
--- NOTE | 2022-04-09 23:40 | PC.NURSE ---
This nurse notified of the patients heart rate becoming tachy and running V-tach on and off. A blood pressure was difficult to obtain and was eventually obtained and charted per vitals. rounded on the patient with this nurse, lab and the charge nurse present. was also notified that the lab was unable to obtain any blood for ordered labs. The patient is currently on Bipap. Both of the patients IV sites were inspected and flushed with normal saline.
[2022-04-10] VITALS (7 sets, daily range): BP systolic 90–121; BP diastolic 58–74; PULSE 94–114; RESP 17–22; TEMP 36.7–36.9; O2SAT 97–100
[2022-04-10 06:47] LABS: ABG PCO2 30.3 mmHg (35-45); ABG PH Result 7.46 (7.35-7.45); Arterial Blood Gas Hematocrit 44.3 % (37-47); Base Excess ABG -1.6 mmol/L (-2.0-2.0); Blood Gas Allen Test Pos; Blood Gas Sample Site Radial, right; Blood Gas Sample Type Arterial; HCO3 ABG 21.3 mmol/L (22-26); Oxygen Device NC
--- NOTE | 2022-04-10 08:17 | PM.PN ---
Subjective Subjective: Patient is doing well. No chest pain Vitals/I&O/Wt Last Vital Signs Temp 98.0 F 04/10/22 08:00 Pulse 108 H 04/10/22 08:00 Resp 17 04/10/22 08:00 BP 108/74 04/10/22 08:00 Pulse Ox 100 04/10/22 08:00 O2 Del Method 04/10/22 08:00 O2 Flow Rate 5 04/10/22 04:00 FiO2 30 04/08/22 22:55 04/09/22 04/10/22 04/10/22 22:59 06:59 14:59 Intake Total 240 / 360 Output Total 950 / 950 Balance -710 / -590 Weight last 48 hrs Weight 362 lb 5 oz Weight 372 lb 4 oz Physical Exam Narrative: GENERAL: Alert and oriented HEENT: Exam within normal limits. LUNGS: Dimished breathing sounds HEART: irregularly irregular. EXTREMITIES: 1+ edema NEUROLOGIC: Grossly normal SKIN: Unremarkable. Urinary Catheter Management: Rodriguez: Cath Placed During This Visit: yes, but has since been removed by the nurse Reason for Continuing Indwelling Catheter: Decision to DC Catheter Date Urinary Catheter Removed: 04/09/22 Time Urinary Catheter Discontinued: 17:34 Data 04/08/22 04:18 04/08/22 04:18 A&P Assessment and plan (1) Hyperkalemia: (2) Pulmonary HTN: (3) Cardiomyopathy: (4) New onset of congestive heart failure: (5) Acute on chronic congestive heart failure: (6) Atrial fibrillation with RVR: (7) Hypoxemia: (8) Atrial fibrillation: Plan Patient is stable. Continue current medications Thank you for involving us with care of this patient. Please call with questions Attestations Medical Necessity Statement*: Care expected to cross 2 midnights Coding Level of Care Code Acute Code for [facility] Fwd Diagnoses Hyperkalemia E87.5 Pulmonary HTN I27.20 Cardiomyopathy I42.9 New onset of congestive heart failure I50.9 Acute on chronic congestive heart failure I50.9 Atrial fibrillation with RVR I48.91 Hypoxemia R09.02 Atrial fibrillation I48.91
[2022-04-10] MEDS: amiodarone 200 mg Tablet 400 MG PO (09:36)
[2022-04-10] MEDS: metoprolol tartrate 25 mg Tablet PO (09:36)
[2022-04-10] MEDS: sennosides-docusate Tablet 1 TAB PO (09:36)
[2022-04-10] MEDS: FUROsemide 10 mg/mL SDV 4mL 40 MG IVP (09:36)
[2022-04-10] MEDS: HYDROcodone-acetaminophen 5-325 mg Tablet 1 TAB PO (09:40)
--- NOTE | 2022-04-10 10:27 | PM.DCS ---
Discharge Providers Date of Admission: 03/31/22 17:52 Date of Discharge: April 10, 2022 Attending Provider at Admission: Paul Tran MD Attending Provider at Discharge: Juanis Moser MD Primary Care Provider: Mo Mike Diagnoses at Discharge Discharge Diagnosis (1) Pulmonary HTN: Status: Acute (2) Cardiomyopathy: Status: Acute (3) New onset of congestive heart failure: Status: Acute (4) Acute on chronic congestive heart failure: Status: Acute (5) Atrial fibrillation with RVR: Status: Acute (6) Hypoxemia: Status: Acute (7) Atrial fibrillation: Status: Acute Reason for Visit Reason for Visit: SOB Brief History: as pper dr garrett Lancaster is a 61 year old female who presented to the hospital with chief complaint of worsening of shortness of breath with fluid overload and lower extremity edema.? In the ER she has been diagnosed with A. fib RVR COPD exacerbation requiring BiPAP to decrease work of breathing. Patient is stating that since her spine surgery she has been noticing bloating and extremity edema.? She was prescribed Lasix but she was never diagnosed with CHF in the past.? She has not noticed any fever but endorsing chills and lethargy and fatigue.? She has not noticed any chest pain.? Today she decided to come to the hospital because of worsening of leg swelling along with shortness of breath.? She has been experiencing orthopnea and PND for last 2 to 3 days. In the ER she has only received morphine, BNP 7000, creatinine 1.1, chest x-ray showing signs of vascular congestion Hospital Course Hospital Course Patient was admitted for new onset congestive heart failure A. fib with RVR. Cardiology was consulted. She was placed on amiodarone and metoprolol. She underwent a coronary angiogram which showed nonischemic cardiomyopathy with EF of 20 to 25%. Nonobstructive coronary disease. LifeVest was requested however patient was anxious and could not tolerate alarms on her body therefore LifeVest was eventually canceled however we will ask her again today at discharge if she still wants it. So far patient has refused it. Patient does live with her ex- but he has not visit him her in the hospital so far. She also has pulmonary hypertension. She will need a pulmonary hypertension referral at time of discharge at [place]. Patient was diuresed during hospital stay. She did get over diuresed and then developed hypotension and had to be transferred to the ICU and had a lactic acidosis. After holding diuretics and giving IV fluids that resolved. Dobutamine was planned however did not have to be given. At this point patient is doing well. She does have an TAMMIE most likely due to cardiorenal but creatinine seems to be plateaued at this point. Eliquis dosing was changed to 2.5 twice daily. Patient to be discharged home on Lasix 40 twice daily along with 10 of potassium daily. There was also mild hyperkalemia present on admission which was corrected. Due to hypotension patient is unable to tolerate Entresto and high creatinine. This was being planned as an outpatient however will not be pursued at this time. Patient chronically is short of breath due to her pulmonary hypertension. She states most of the time she has mild conversational dyspnea and thus normal for her. She does use BiPAP on and off and especially at nighttime. Patient has been medically optimized at this point. Cardiology has been following and seeing her every day. Recommendations have been appreciated. She will be discharged to [facility] today in stable condition. She has been advised to return to the hospital should she develop any new symptoms or worsening of her existing symptoms. She has been given scripts for labs to recheck in few days and then again in 1 week to keep an eye on her potassium and renal functions. All questions answered to patient satisfaction. She is to follow-up with cardiology as an outpatient. Physical Exam Narrative: GENERAL: Alert and oriented x3, on 3 L nasal cannula which is her baseline. HEENT: Exam within normal limits. LUNGS: Diminished breathing sounds, no crackles at bases. HEART: rate controlled, irregularly irregular., normal s1, s2, muffled heart sounds due to body habitus EXTREMITIES: 2+ edema bilaterally lower extremities, large lower extremities, patient states that is chronic. NEUROLOGIC: Nonfocal. Urinary Catheter Management: Rodriguez: Cath Placed During This Visit: yes, but has since been removed by the nurse Reason for Continuing Indwelling Catheter: Decision to DC Catheter Date Urinary Catheter Removed: 04/09/22 Time Urinary Catheter Discontinued: 17:34 Discharge Data Studies Completed and Pending Completed Studies During Hospitalization Category Date Time Status CEMENT SIDE LASTER request for service Routine Exams 04/04/22 15:31 Completed XR chest 1V portable [id number] Routine Exams 04/05/22 08:19 Completed XR chest 1V portable [id number] Routine Exams 04/06/22 21:17 Completed XR chest 1V portable [id number] Routine Exams 04/09/22 23:27 Completed XR chest 1V portable [id number] Stat Exams 03/31/22 16:36 Completed XR chest 1V portable [id number] Stat Exams 04/05/22 03:03 [place] [id number] Routine Ultrasound 04/01/22 07:40 Completed CV. echo complete* [id number] Routine Ultrasound 04/01/22 06:00 Completed CV. echo lmt w/w contras [id number] Routine Ultrasound 04/02/22 10:02 Completed Pending at discharge Category Date Time Status Sestamibi Stress Test Request Routine Exams 04/03/22 10:38 Stop Req ABG Coox Only Stat Lab 04/04/22 16:25 Results ABG Coox Only Stat Lab 04/04/22 16:27 Results ABG Coox Only Stat Lab 04/04/22 16:30 Results Basic Metabolic Panel AM LABS Lab 04/09/22 04:00 Ordered Basic Metabolic Panel AM LABS Lab 04/10/22 04:00 Ordered CBC Auto Diff [Complete Blood Count w/Auto] Routine Lab 04/09/22 23:27 Ordered CMP [Comprehensive Metabolic Panel] Routine Lab 04/09/22 23:27 Ordered Complete Blood Count w/Auto AM LABS Lab 04/10/22 04:00 Ordered Lactic Sepsis W/Reflex Routine Lab 04/09/22 23:27 Ordered Magnesium AM LABS Lab 04/09/22 04:00 Ordered Magnesium AM LABS Lab 04/10/22 04:00 Ordered Magnesium Routine Lab 04/09/22 23:27 Ordered Troponin(5th) 2 Hour. Timed Lab 04/10/22 01:27 Ordered Troponin(5th) 6 hour. Timed Lab 04/10/22 05:27 Ordered Troponin(5th) Baseline Stat Lab 04/09/22 23:27 Ordered Radiology Impressions Chest X-Ray 04/09/22 23:27 IMPRESSION: Stable chest with no acute process or significant change from 4 days ago. Laboratory Results WBC 6.8 10^3/uL (4.0-10.0) 04/08/22 04:18 RBC 4.68 10^6/uL (4.1-5.3) 04/08/22 04:18 Hgb 13.2 g/dL (11.5-15.3) 04/08/22 04:18 Hct 43.8 % (37.0-47.0) 04/08/22 04:18 MCV 93.6 fl (81-99) 04/08/22 04:18 MCH 28.2 pg (28.0-34.0) 04/08/22 04:18 MCHC 30.1 g/dL (30.0-36.0) 04/08/22 04:18 RDW 16.7 % (12.1-15.1) H 04/08/22 04:18 Plt Count 353 10^3/cmm (130-400) 04/08/22 04:18 MPV 10.4 fL (7.4-10.4) 04/08/22 04:18 Neut % (Auto) 65.5 % 04/08/22 04:18 Lymph % (Auto) 16.7 % 04/08/22 04:18 [place] % (Auto) 14.1 % 04/08/22 04:18 Eos % (Auto) 2.1 % 04/08/22 04:18 Baso % (Auto) 1.2 % 04/08/22 04:18 Neut # (Auto) 4.43 10^3/uL (1.8-7.7) 04/08/22 04:18 Lymph # (Auto) 1.1 10^3/uL (0.8-4.8) 04/08/22 04:18 [place] # (Auto) 1.0 10^3/uL (0.2-0.9) H 04/08/22 04:18 Eos # (Auto) 0.1 10^3/uL (0.0-0.8) 04/08/22 04:18 Baso # (Auto) 0.1 10^3/uL (0.0-0.1) 04/08/22 04:18 Nucleated RBC % (auto) 1.5 % 04/08/22 04:18 Nucleated RBCs # 0.1 /100WBC 04/08/22 04:18 D-Dimer 1.19 ug/mIFEU (0-0.59) H 03/31/22 16:30 Specimen Type Arterial 04/09/22 23:27 Sample Site Radial, right 04/09/22 23:27 ABG pH 7.46 (7.35-7.45) H 04/09/22 23:27 ABG pCO2 30.3 mmHg (35-45) L 04/09/22 23:27 ABG pO2 133.0 mmHg (80.0-100.0) H 04/09/22 23:27 ABG HCO3 21.3 mmol/L (22-26) L 04/09/22 23:27 ABG O2 Saturation 92.4 03/31/22 16:39 ABG Base Excess -1.6 mmol/L (-2.0-2.0) 04/09/22 23: Luis Test Pos 04/09/22 23:27 VBG pH 7.38 (7.32-7.42) 04/05/22 10:15 VBG pCO2 40.6 mmHg (41-51) L 04/05/22 10:15 VBG pO2 50.0 mmHg (25-40) H 04/05/22 10:15 VBG HCO3 24.1 mmol/L (24-28) 04/05/22 10:15 VBG Base Excess -1.0 mmol/L (-3.0-3.0) 04/05/22 10:15 VBG Hematocrit 42.6 % (37-47) 04/05/22 10:15 A-a O2 Gradient 5.7 mmHg (5-10) 03/31/22 16:39 Hematocrit 44.3 % (37-47) 04/09/22 23: Hgb O2 Saturation 39.0 % (95-100) L 04/04/22 16:30 Carboxyhemoglobin 1.1 %THgb (0.4-20.1) 04/04/22 16:30 Methemoglobin 0.9 % (0.4-1.5) 04/04/22 16:30 Total Hemoglobin 14.2 g/dL (12-16) 04/04/22 16:30 Sodium 143.0 mmol/L (131-143) 03/31/22 16:39 Potassium 3.7 mmol/L (3.5-5.0) 03/31/22 16:39 Glucose 115.0 mg/dL (70-115) 03/31/22 16:39 Ionized Calcium 1.2 mmol/L (1.1-1.4) 03/31/22 16:39 O2 Delivery Device Nc 04/09/22 23:27 O2 Liters/Min 6.0 % 04/09/22 23:27 FiO2 30.0 % 04/07/22 00:12 Mechanical Engineering Draftsperson ID [email or web address] 04/09/22 23:27 Sodium 131 mmol/L (136-145) L 04/08/22 04:18 Potassium 4.5 mmol/L (3.5-5.1) 04/08/22 04:18 Chloride 98 mmol/L (98-107) 04/08/22 04:18 Carbon Dioxide 25 mmol/L (22-29) 04/08/22 04:18 Anion Gap 12.5 (5-19) 04/08/22 04:18 BUN 54 mg/dL (8-23) H 04/08/22 04:18 Creatinine 1.6 mg/dL (0.5-0.9) H 04/08/22 04:18 GFR Calculation 32.6 mL/min (90-130) L 04/08/22 04:18 Glucose 116 mg/dL (65-115) H 04/08/22 04:18 Calculated Osmolality 288 mOsm/kg (285-295) 04/08/22 04:18 Lactate 3.2 mmol/L (0.5-2.2) H 04/07/22 12:55 Calcium 9.3 mg/dL (8.5-10.5) 04/08/22 04:18 Phosphorus 4.1 mg/dL (2.5-4.5) 04/01/22 03:53 Magnesium 2.4 mg/dL (1.7-2.3) H 04/08/22 04:18 Total Bilirubin 2.0 mg/dL (0.15-1.2) H 04/06/22 23:30 AST 212 U/L (0-32) H 04/06/22 23:30 ALT 225 U/L (0-33) H 04/06/22 23:30 Alkaline Phosphatase 97 U/L (35-105) 04/06/22 23:30 Troponin T Baseline 30 ng/L (0-10) H 03/31/22 16:30 Troponin T 120 Minute 27.68 ng/L (0-10) H 03/31/22 19:45 Delta Troponin T -2.32 ABS# (0-10) L 03/31/22 19:45 Troponin T Hi Sens 6Hr 32.53 ng/L (0-10) H 03/31/22 22:15 Troponin T Hi Sens 6Hr Delta 2.53 ng/L (0-12) 03/31/22 22:15 C-Reactive Protein 22.2 mg/L (0.0-4.9) H 04/06/22 23:30 NT-Pro-B Natriuret Pep 00989 pg/mL (0-125) H 04/06/22 23:30 Total Protein 5.8 g/dL (6.6-8.7) L 04/06/22 23:30 Albumin 3.2 g/dL (3.5-5.2) L 04/06/22 23:30 Globulin 2.6 g/dL (1.3-4.6) 04/06/22 23:30 Vitamin B12 866 pg/mL (232-1245) 03/31/22 16:30 Procalcitonin 0.24 ng/mL (0-0.5) 04/06/22 23:30 TSH 3.73 uIU/mL (0.27-4.20) 04/06/22 23:30 Coronavirus 229E (PCR) Not detected (NOT DETECT) 03/31/22 17:50 SARS-CoV-2 (PCR) Not detected (NOT DETECT) 03/31/22 17:50 Vitals Last Vital Signs Temp 98.0 F 04/10/22 08:00 Pulse 104 H 04/10/22 08:45 Resp 18 04/10/22 08:45 BP 108/74 04/10/22 08:00 Pulse Ox 99 04/10/22 08:45 O2 Del Method 04/10/22 09:17 O2 Flow Rate 3 04/10/22 09:17 FiO2 30 04/08/22 22:55 Discharge Plan Discharge Patient Disposition: Xfer SNF Condition: Stable Prescriptions: New Pacerone 200 mg Tablet 400 mg PO DAILY Qty: 60 0RF metoprolol tartrate 25 mg Tablet 25 mg PO BID@0900,2100 Qty: 60 0RF Eliquis 5 mg Tablet 2.5 mg PO BID@0900,2100 Qty: 30 0RF Stool Softener-Laxative 8.6-50 mg Tablet 1 tab PO DAILY Qty: 30 0RF Continued hydrocodone-acetaminophen 10-325 mg tablet 1 tab PO BID PRN (Reason: Pain) albuterol sulfate 90 mcg/actuation HFA aerosol inhaler 2 puff INHALATION Q6H PRN (Reason: Shortness Of Breath) Changed furosemide 40 mg Tablet 40 mg PO BIDWMEAL Qty: 60 0RF potassium chloride 20 mEq tablet,ER particles/crystals 10 meq PO DAILY Qty: 14 0RF Discontinued diltiazem HCl [Diltzac ER] 180 mg Capsule,Extended Release 24 Hr 180 mg PO BID carvedilol 3.125 mg tablet 3.125 mg PO BIDWM Eliquis 5 mg Tablet 5 mg PO BID naproxen [Naprosyn] 250 mg Tablet 250 mg PO BID spironolactone 25 mg tablet 25 mg PO DAILY losartan 25 mg tablet 25 mg PO DAILY Discharge Orders: Discharge Order (Routine); Ordered 04/10/22 Ordered By: Juanis Moser Other Ambulatory Orders: Comprehensive Metabolic Panel (Routine) Timeframe: 3 Days Facility: [facility] - Location: Lab - Main Lab Ordered By: Juanis Moser Comprehensive Metabolic Panel (Routine) Timeframe: 1 Week Facility: [facility] - Location: Lab - Main Lab Ordered By: Juanis Moser Referrals: Mo Mike [Primary Care Provider] - 4-7 days Kaci Toribio MD [Physician] - 1 month Liv Bishop FNP [Nurse Practitioner] - 04/24/22 9:15 am Discharge Diet: Cardiac and Low Salt Discharge Activity: Increase activity as tolerated and Oxygen as instructed Activity Restrictions/Additional Instructions: Please return to ER if you have worsening symptoms or new symptoms develop. Please have your labs rechecked as directed. Discharge Attestations Time Spent in Discharge Care*: greater than 30 min Quality Metrics Clinical Quality Measures [ No reported AMI, CVA or VTE this stay] Coding Level of Care Code Acute Chg FW DC note Diagnoses Pulmonary HTN I27.20 Cardiomyopathy I42.9 New onset of congestive heart failure I50.9 Acute on chronic congestive heart failure I50.9 Atrial fibrillation with RVR I48.91 Hypoxemia R09.02 Atrial fibrillation I48.91
--- NOTE | 2022-04-10 16:04 | PC.NURSE ---
report called to Jany at [facility].
== END 2022-04-10 16:30 | disposition skilled nursing facility (03) | DRG 286 ==
LOC: ER 17:52 → CSU 18:56 → ICU 04-07 00:38 → MEDSURG 04-08 20:23
PROVIDERS: Family Medicine; Internal Medicine Cardiovascular Disease; Admitting Provider Internal Medicine; Emergency Provider Emergency Medicine; PCP Physician Assistant Medical; Visit Provider Internal Medicine
PROC: B2111ZZ Fluoroscopy of Multiple Coronary Arteries using Low Osmolar Contrast (ICD-10-PCS; principal; 2022-04-04 16:00)
DX: I13.0 Hypertensive heart and chronic kidney disease with heart failure and stage 1 through stage 4 chronic kidney disease, or unspecified chronic kidney disease (principal); I50.21 Acute systolic (congestive) heart failure; I48.20 Chronic atrial fibrillation, unspecified; N17.9 Acute kidney failure, unspecified; Z68.42 Body mass index [BMI] 45.0-49.9, adult; J44.1 Chronic obstructive pulmonary disease with (acute) exacerbation; N18.2 Chronic kidney disease, stage 2 (mild); I27.20 Pulmonary hypertension, unspecified; I25.10 Atherosclerotic heart disease of native coronary artery without angina pectoris; I42.8 Other cardiomyopathies; E87.5 Hyperkalemia; I95.9 Hypotension, unspecified; Z99.89 Dependence on other enabling machines and devices; Z79.891 Long term (current) use of opiate analgesic; Z79.51 Long term (current) use of inhaled steroids; F41.9 Anxiety disorder, unspecified; Z91.199 Patient's noncompliance with other medical treatment and regimen due to unspecified reason; G62.9 Polyneuropathy, unspecified; G89.29 Other chronic pain; M54.9 Dorsalgia, unspecified; E66.01 Morbid (severe) obesity due to excess calories; G47.30 Sleep apnea, unspecified; Z87.891 Personal history of nicotine dependence
CPT/HCPCS: 36415; 36600; 71045; 80048; 80051; 80053; 82330; 82607; 82803; 82805; 82810; 83605; 83735; 83880; 84100; 84145; 84443; 84484; 85025; 85378; 86140; 87040; 87635; 93005; 93306; 93460; 93970; 94640; 94660; 94664; 96372; 96374; 97110; 97161; 97530; 99152; 99153; 99285; C1751; C1769; C1887; C1894; C8924; J1644; J1650; J1940; J2250; J2270; J3010; J3490; J7030; Q9956; Q9967

== ENCOUNTER 2022-04-19 15:08 | Emergency (ER) | payer MEDICARE, MEDICAID, SELFPAY ==
[2022-04-19] VITALS (17 sets, daily range): BP systolic 87–154; BP diastolic 75–108; PULSE 85–123; RESP 14–31; TEMP 36.5; O2SAT 97–100; BMI 47.5
--- NOTE | 2022-04-19 15:19 | XR_ITS ---
WS: [id number] Exam: XR chest 1V portable [id number] Date/Time of Exam: 04/19/2022 3:28 PM Reason For Exam: dyspnea/cough Comparison 04/10/2022. The lungs are clear and fully expanded. No pleural effusions. The heart is enlarged but unchanged in size. The mediastinum is normal in contour. Bony structures are intact. XR/XR chest 1V portable [id number] IMPRESSION: 1. Cardiac enlargement unchanged. No acute process.
--- NOTE | 2022-04-19 15:19 | ECG_ITS ---
[facility] Test Date: 2022-04-19 Pat Name: Daina Lancaster Department: Room: Gender: Female Head Up Operator: : 1960 Requested By: Martin Guerra Order Number: [id number] Kaleb MD: Malinda Montoya M.D. Measurements Intervals [place] Rate: 109 P: 0 NE: 0 QRS: 160 QRSD: 173 T: 22 QT: 384 QTc: 519 Interpretive Statements ATRIAL FIBRILLATION WITH RAPID VENTRICULAR RESPONSE RIGHT AXIS DEVIATION [QRS AXIS > 100] INTRAVENTRICULAR CONDUCTION DELAY Compared to ECG 04/10/2022 00:24:30 Right-axis deviation now present Electronically Signed On 04-19-2022 21:48:54 INFECTION CONTROL SPECIALIST by Malinda Montoya M.D. [id number]
--- NOTE | 2022-04-19 15:27 | W.ED.SOB ---
HPI - SOB/Dyspnea General: Chief Complaint: Shortness of Breath/Dyspnea Stated Complaint: SOB/ AFIB W/RVR Time Seen by Provider: 04/19/22 15:19 Source: patient Mode of arrival: ambulatory History of Present Illness: HPI Narrative: 61-year-old female who presents emergency room with complaint of shortness of breath. She has a history of atrial fibrillation she is normally she tells me on 4 L by nasal cannula she is in A. fib when she arrived here she is not particularly in RVR. Her rate varies from the 90s sometimes up to 110. Her oxygen sat is at 100% with O2 titrated down to 2 L she tells me she normally uses 4 L/min via nasal cannula. Patient states she gets anxious and that her breathing gets worse. She does states she feels better already. She was recently hospitalized here at [facility]. With pulmonary hypertension cardiomyopathy congestive heart failure and A-fib. The A-fib at the time of admission was a new diagnosis. MD elicited complaint: shortness of breath Pertinent past history: congestive heart failure and other (Atrial fibrillation) Onset (ago): hour(s) Timing: intermittent Severity: mild Exacerbating factors: nothing Relieving factors: nothing Known history of: congestive heart failure and other (Atrial fibrillation) Associated symptoms: Reports palpitations; Deny abdominal pain, chest congestion, chest pain, cough, diaphoresis, dizziness, extremity pain, fever(s), hemoptysis, lightheadedness, myalgias, nausea, orthopnea, paresthesias, polydipsia, polyuria, rash, sense of impending doom, syncope or vomiting Treatment prior to arrival: oxygen Review of Systems Const: Denies: fever(s), chills, fatigue, malaise or diaphoresis ENMT: Denies: throat pain, ear or mastoid pain, nasal discharge or nasal congestion Card: Reports: palpitations and irregular heart rhythm; Denies: chest pain, lightheadedness, syncope or orthopnea Resp: Reports: dyspnea; Denies: productive cough, non-productive cough, wheezing, hemoptysis or chest congestion GI: Denies: abdominal pain, nausea or vomiting : Denies: flank pain, difficulty voiding, dysuria, urinary frequency or urinary urgency Musc: Denies: extremity pain Skin/Breast: Denies: rash or pruritus Neuro: Denies: dizziness Endo: Denies: polyuria or polydipsia PFSH ED PFSH: Medical History Atrial fibrillation Pulmonary HTN Surgical History Personal history of spine surgery Family History Denies family history of CAD (coronary artery disease) Social History Smoking and tobacco status: former smoker Physical Exam Const: COMMON NORMALS: no acute distress GENERAL APPEARANCE: cooperative and comfortable ORIENTATION/CONSCIOUSNESS: Yes awake, Yes oriented to person, Yes oriented to place and Yes oriented to time HENMT: COMMON NORMALS: normocephalic, atraumatic and hearing grossly normal bilaterally HEAD & SCALP: normocephalic and atraumatic Resp: COMMON NORMALS: normal respiratory effort, No retractions, No use of accessory muscles and clear to auscultation bilaterally AUSCULTATION: clear to auscultation bilaterally Cardio: COMMON NORMALS: No murmurs present (Cardio) RHYTHM: abnormal rhythm irregularly irregular GI: COMMON NORMALS: Soft to palpation and No hepatosplenomegaly present AUSCULTATION: Yes normoactive bowel sounds PALPATION: Yes Soft to palpation, No Tenderness to palpation present (GI), No Guarding due to palpation present (GI) and Yes No hepatosplenomegaly present Extremity: COMMON NORMALS: normal to inspection, capillary refill normal, no clubbing, cyanosis or edema, no calf tenderness and no pedal edema Neuro: SENSORIUM/ORIENTATION: Yes oriented to person, Yes oriented to place and Yes oriented to time Skin: COMMON NORMALS: no rashes or lesions noted GENERAL SKIN EXAM: no rashes or lesions noted Course Vital Signs: Vital signs: Vital Signs Temperature 97.7 F 04/19/22 15:17 Pulse Rate 105 H 04/19/22 17:50 Respiratory Rate 27 H 04/19/22 17:50 Blood Pressure 111/86 04/19/22 17:30 Pulse Oximetry 99 04/19/22 17:50 Oxygen Delivery Me thod 04/19/22 16:50 Oxygen Flow Rate 3 04/19/22 16:50 MDM - SOB/Dyspnea Medical Decision Making Significant difficulty drawing blood suspect there is some hemolysis potassium is up. Kidney function is actually improved from previous testings. She is feeling much better. Liver functions and bilirubin have also trended up a bit but are improved today. Her rate is better controlled after receiving the extra oral toprol dose. Pt tolerated well and is feeling better. She should have follow up on her labs within the next few days and hold her potassium supplement. Medical Records I reviewed the patient's medical records. Lab Data I reviewed the patient's lab results. 04/19/22 16:25 04/19/22 16:25 Labs/Radiology: Radiology Impressions Chest X-Ray 04/19/22 15:19 IMPRESSION: 1. Cardiac enlargement unchanged. No acute process. Laboratory Results WBC 6.7 10^3/uL (4.0-10.0) 04/19/22 16:25 RBC 5.18 10^6/uL (4.1-5.3) 04/19/22 16:25 Hgb 14.1 g/dL (11.5-15.3) 04/19/22 16:25 Hct 47.2 % (37.0-47.0) H 04/19/22 16:25 MCV 91.1 fl (81-99) 04/19/22 16:25 MCH 27.2 pg (28.0-34.0) L 04/19/22 16:25 MCHC 29.9 g/dL (30.0-36.0) L 04/19/22 16:25 RDW 17.4 % (12.1-15.1) H 04/19/22 16:25 Plt Count 353 10^3/cmm (130-400) 04/19/22 16:25 MPV 9.6 fL (7.4-10.4) 04/19/22 16:25 Neut % (Auto) 74.5 % 04/19/22 16:25 Lymph % (Auto) 11.6 % 04/19/22 16:25 [place] % (Auto) 9.9 % 04/19/22 16:25 Eos % (Auto) 1.4 % 04/19/22 16:25 Baso % (Auto) 1.1 % 04/19/22 16:25 Neut # (Auto) 4.96 10^3/uL (1.8-7.7) 04/19/22 16:25 Lymph # (Auto) 0.8 10^3/uL (0.8-4.8) 04/19/22 16:25 [place] # (Auto) 0.7 10^3/uL (0.2-0.9) 04/19/22 16:25 Eos # (Auto) 0.1 10^3/uL (0.0-0.8) 04/19/22 16:25 Baso # (Auto) 0.1 10^3/uL (0.0-0.1) 04/19/22 16:25 Nucleated RBC % (auto) 0.5 % 04/19/22 16:25 Nucleated RBCs # 0.0 /100WBC 04/19/22 16:25 Sodium 131 mmol/L (136-145) L 04/19/22 16:25 Potassium 5.8 mmol/L (3.5-5.1) H 04/19/22 17:40 Chloride 98 mmol/L (98-107) 04/19/22 16:25 Carbon Dioxide 19 mmol/L (22-29) L 04/19/22 16:25 Anion Gap 20.0 (5-19) H 04/19/22 16:25 BUN 42 mg/dL (8-23) H 04/19/22 16:25 Creatinine 1.4 mg/dL (0.5-0.9) H 04/19/22 16:25 GFR Calculation 38.0 mL/min (90-130) L 04/19/22 16:25 Glucose 119 mg/dL (65-115) H 04/19/22 16:25 Calculated Osmolality 284 mOsm/kg (285-295) L 04/19/22 16:25 Calcium 8.8 mg/dL (8.5-10.5) 04/19/22 16:25 Total Bilirubin 1.9 mg/dL (0.15-1.2) H 04/19/22 16:25 AST 28 U/L (0-32) 04/19/22 16:25 ALT 46 U/L (0-33) H 04/19/22 16:25 Alkaline Phosphatase 181 U/L (35-105) H 04/19/22 16:25 Total Protein 6.1 g/dL (6.6-8.7) L 04/19/22 16:25 Albumin 2.9 g/dL (3.5-5.2) L 04/19/22 16:25 Globulin 3.2 g/dL (1.3-4.6) 04/19/22 16:25 Discharge Plan Discharge Patient Disposition: Home Clinical Impression: Atrial fibrillation, Pulmonary HTN Condition: Stable Prescriptions: New metoprolol tartrate 37.5 mg tablet 37.5 mg PO BID Qty: 60 0RF No Action hydrocodone-acetaminophen 10-325 mg tablet 1 tab PO BID PRN (Reason: Pain) albuterol sulfate 90 mcg/actuation HFA aerosol inhaler 2 puff INHALATION Q6H PRN (Reason: Shortness Of Breath) Pacerone 200 mg Tablet 400 mg PO DAILY Qty: 60 0RF metoprolol tartrate 25 mg Tablet 25 mg PO BID@0900,2100 Qty: 60 0RF Eliquis 5 mg Tablet 2.5 mg PO BID@0900,2100 Qty: 30 0RF Stool Softener-Laxative 8.6-50 mg Tablet 1 tab PO DAILY Qty: 30 0RF furosemide 40 mg Tablet 40 mg PO BIDWMEAL Qty: 60 0RF potassium chloride 20 mEq tablet,ER particles/crystals 10 meq PO DAILY Qty: 14 0RF Discharge Orders: Discharge ED (Routine); Ordered 04/19/22 Ordered By: Martin Gordon Referrals: Mo Mike [Primary Care Provider] - Discharge Diet: Usual diet Discharge Activity: Limit activity as instructed Patient Instructions: Opioid Safety, Pain Management Activity Restrictions/Additional Instructions: You were seen today for complaints of shortness of breath. Your oxygen saturations remain normal your heart rate is slightly elevated. Commend that you increase your metoprolol to 37-1/2 mg twice daily. He should follow-up with your employee relations consultant sometime in the next 7 to 10 days. Coding Level of Care Code ED School Age Lead Teacher for Varinderg Fwd Exam Detailed
[2022-04-19 16:34] LABS: Basophils # 0.1 10^3/uL (0.0-0.1); Basophils % 1.1 %; Eosinophils # 0.1 10^3/uL (0.0-0.8); Eosinophils % 1.4 %; Hematocrit 47.2 % (37.0-47.0); Hemoglobin 14.1 g/dL (11.5-15.3); Lymphocytes # 0.8 10^3/uL (0.8-4.8); Lymphocytes % 11.6 %; Mean Corpuscular HGB Conc 29.9 g/dL (30.0-36.0); Mean Corpuscular Hemoglobin 27.2 pg (28.0-34.0); Mean Corpuscular Volume 91.1 fl (81-99); Mean Platelet Volume 9.6 fL (7.4-10.4); Monocytes # 0.7 10^3/uL (0.2-0.9); Monocytes % 9.9 %; Neutrophils # 4.96 10^3/uL (1.8-7.7); Neutrophils % 74.5 %; Nucleated Red Blood Cells % 0.5 %; Platelet Count 353 10^3/cmm (130-400); Red Blood Count 5.18 10^6/uL (4.1-5.3); Red Cell Distribution Width 17.4 % (12.1-15.1); White Blood Count 6.7 10^3/uL (4.0-10.0)
[2022-04-19 16:54] LABS: Alanine Aminotransferase 46 U/L (0-33); Albumin Level 2.9 g/dL (3.5-5.2); Alkaline Phosphatase 181 U/L (35-105); Aspartate Amino Transferase 28 U/L (0-32); Blood Urea Nitrogen 42 mg/dL (8-23); Calcium 8.8 mg/dL (8.5-10.5); Carbon Dioxide 19 mmol/L (22-29); Chloride 98 mmol/L (98-107); Globulin 3.2 g/dL (1.3-4.6); Glucose 119 mg/dL (65-115); Osmolality Calculated 284 mOsm/kg (285-295); Sodium 131 mmol/L (136-145); Total Bilirubin 1.9 mg/dL (0.15-1.2); Total Protein 6.1 g/dL (6.6-8.7)
[2022-04-19] MEDS: LORazepam 2 mg Tablet PO (17:32)
[2022-04-19] MEDS: metoprolol tartrate 25 mg Tablet 12.5 MG PO (17:33)
[2022-04-19 18:34] LABS: Potassium 5.8 mmol/L (3.5-5.1)
== END 2022-04-19 18:01 | disposition home or self-care (01) ==
PROVIDERS: Emergency Provider Family Medicine; PCP Physician Assistant Medical
DX: I48.91 Unspecified atrial fibrillation (principal); I27.20 Pulmonary hypertension, unspecified; Z79.01 Long term (current) use of anticoagulants; Z87.891 Personal history of nicotine dependence
CPT/HCPCS: 36415; 71045; 80053; 84132; 85025; 93005; 99285